=== PATIENT | female | born 1980 | race Caucasian/White ===

== ENCOUNTER 2020-11-11 09:13 | Emergency (ER) | payer OTHER ==
--- OUTSIDE RECORDS SUMMARY | 2020-11-11 09:17 | XMS REPORT | Continuity of Care Document ---
:1980 Author Organization [facility] t Address [address] [place] [address] Care Team Providers Name Role Phone Osvaldo Jeffries MD Primary Care Physician Neftali SALAMANCA Attending Clinician Problems Condition Condition Condition Status Onset Resolution Last Treating Co mments Source Name Details Category Date Date Treatment Clinician Date Gout Gout Problem Active 2020-0 [place] [facility] Insomnia Insomnia Problem Active 2020-0 [place] [facility] Chronic Chronic Problem Active 2020-0 [place] pain Pain 9-17 da syndrome Syndrome 00:00: [facility] Migraine Migraine Problem Active 2020-0 [place] 9-17 [facility] 00[facility] Asthma Asthma Problem Active 2020-0 [place] 9-17 da 00:[facility] Irritable Irritable Problem Active 2020-0 [place] bowel Bowel 9-17 da syndrome Syndrome 00:00: [facility] Non-alcoho Non-alcoho Problem Active 2020-0 M [place] lic fatty lic Fatty 917 da liver Liver 00:00: [facility] Arthritis Arthritis Problem Active 2020-0 [facility] [place] 9-17 da 00:00[facility] Overactive Overactive Problem Active 2020-0 M [place] bladder Bladder 9-17 da 00:00: [facility] Allergies, Adverse Reactions, Alerts Allergy Allergy Status Severity Reaction(s) Onset Inactive Treating Comm ents Source Name Type Date Date Clinician Metformi Propensi Active GI [place] n ty to Intolerance 10-26 Metho di adverse 00:00: st reaction 00 s to drug Divalpro Propensi Active Rash [place] ex ty to 08-23 [facility] adverse 00:00: st reaction 00 s to drug Meperidi Propensi Active Rash [place] ne ty to 08-23 [facility] adverse 00:00: st reaction 00 s to drug Metronid Propensi Active Rash [place] azole ty to 08-23 [facility] adverse 00:00: st reaction 00 s to drug Aspirin Propensi Active [facility] ty to 06-16 breathing [facility] adverse 00:00: st reaction 00 s to drug Clarithr Propensi Active [place] omycin ty to 06-16 [facility] adverse 00:00: st reaction 00 s to drug Nsaids Propensi Active Rash [place] (Non-Abhay ty to 06-16 [facility] roidal adverse 00:00: st Anti-Inf reaction 00 lammator s to y Drug) drug Penicill Propensi Active Anaphylaxis [place] ins ty to 06-16 [facility] adverse 00:00: st reaction 00 s to drug Sulfa Propensi Active Rash [place] (Sulfona ty to 11-11 Method[facility] mide adverse 00:00: st Antibiot reaction 00 ics) s to drug SULFA Allergy Active Anaphylaxis Patel gor (SULFONA to da MIDE substanc [facility] ANTIBIOT [facility] Biaxin Allergy Active Rash [place] to da substanc [facility] Demerol Allergy Active Rash [place] to da substanc [facility] Depakote Allergy Active Vomiting [place] to da substanc [facility] EASPRIN Allergy Active Anaphylaxis [place] to da substanc [facility] Flagyl Allergy Active Anaphylaxis Patel gor to da substanc [facility] Gabapent Allergy Active Anaphylaxis [place] in to da substanc [facility] Penicill Allergy Active Itching [place] amine to da substanc [facility] Family History Family Member Diagnosis Comments Start Date Stop Date Source Family member Colon cancer Oniel Johnston ethodi Family member Colon polyps Oniel Johnston ethodi Social History Social Habit Start Date Stop Date Quantity Comments Source Tobacco use and 2018-01-05 2018-01-05 Never used Oniel Johnston ethodist exposure 00:00:00 00:00:00 Alcohol intake 2018-01-05 2018-01-05 Current [place] [facility] thodist 00:00:00 00:00:00 non-drinker of alcohol (finding) Sex [birth year] At [birth year] Oniel Johnston ethodist 00:00:00 00:00:00 Smoking Status Start Date Stop Date Source Heavy Tobacco Smoker [place] [facility] Former smoker 2018-01-05 00:00:00 2018-01-05 00:00:00 [facility] Medications Ordered Filled Start Stop Current Ordering Indication Dosage Frequency Signature Comments Components Source Medication Medication Date Date Medication? Clinician (SIG) Name Name Kojoportillo Sury No Karonx Patel braulio Continuing Continuing 9-17 Continuing da Month Box 1 Month Box 1 00:00: Month Box [facility] mg tablet mg tablet 00 1 mg al tablet [facility] guaiFENesin Yes 1200mg Take 1,200 [place] (MUCINEX) 8-23 mg by [facility]i 600 mg 10:53: mouth. st tablet 47 extended release 12hr docusate Yes 100mg Take 100 [place] sodium 8-23 mg by [facility] (COLACE) 10:53: mouth. st 100 MG 47 capsule fluticasone Yes 2{spray 2 sprays [place] (FLONASE) 8-23 } into each Metho di 50 10:53: nostril. st mcg/actuati 47 on nasal spray cranberry Yes by NOT [place] 400 mg 8-23 APPLICABLE [facility] capsule 10:53: route. st 47 Lactobacill Yes Take by [place] ston us 8-23 mouth. [facility] acidophilus 10:53: st (PROBIOTIC) 47 10 billion cell capsule linaclotide Yes 145ug QD Take 1 [place] (LINZESS) 5-30 capsule [facility] 145 mcg 00:00: ([address] capsule 00 total) by mouth daily before breakfast. azithromyci Yes ZPK [place] n 5-29 [facility] (ZITHROMAX) 00:00: st 250 MG 00 tablet acetaminoph 0 Yes TK 1 T PO [place] en-codeine 5-29 BID PRN P Meth mer[place] (TYLENOL 00:00: st WITH 00 CODEINE #3) 300-30 mg per tablet LYRICA 75 Yes [place] mg capsule 3-26 Methodi 00:00: st 00 furosemide 2017-0 Yes TK 1 T PO [place] (LASIX) 20 3-23 D FOR [facility] mg tablet 00:00: EDEMA. IF st 00 EDEMA IMPROVES THEN CAN TK 1 T PO D PRN butalbital- Yes [place] acetaminoph 2-22 Method[facility] en-caff 00:00: st (FIORICET, 00 ESGIC) 50-325-40 mg per tablet ondansetron Yes Kacie n (ZOFRAN) 4 2-21 [facility] MG tablet 00:00: st 00 ADVAIR 0 Yes [place] DISKUS 2-21 [facility] 500-50 00:00: st mcg/dose 00 DISKUS estradiol 2016-05 Yes 2mg Take 2 mg [place] (ESTRACE) 2 1-30 by mouth. Met hodi MG tablet 00:00: st 00 montelukast 2016-05 Yes 10mg Take 10 mg [place] (SINGULAIR) 1-30 by mouth. Met hodi 10 mg 00:00: st tablet 00 omeprazole 2016-05 Yes 20mg Take 20 mg [place] (PriLOSEC) 1-30 by mouth. Meth merlyn 20 MG 00:00: st capsule 00 DULoxetine Yes 30mg Take 30 mg [place] (CYMBALTA) 9-01 by mouth. Meth merlyn 30 MG 00:00: st capsule 00 solifenacin 2015-05 Yes [place] (VESICARE) 1-17 [facility] 10 MG 00:00: st tablet 00 amitriptyli 2015-05 Yes [place] (ELAVIL) 1-17 [facility] 25 MG 00:00: st tablet 00 cyclobenzap 2015-05 Yes TAKE 1 [place] 1-15 TABLET 3 [facility] (FLEXERIL) 00:00: TIMES A st 10 mg 00 DAY tablet ranitidine Yes 300mg Take 300 [place] (ZANTAC) 8-08 mg by [facility] 300 MG 00:00: mouth. st tablet 00 cetirizine Yes 10mg Take 10 mg [place] (ZyrTEC) 10 8-08 by mouth. Met hodi MG tablet 00:00: st 00 albuterol Yes 2{puff} Inhale 2 [place] (PROAIR 8-08 puffs. Methodi HFA,PROVENT 00:00: st [place] 00 HFA,VENTOLI N HFA) 90 mcg/actuati on inhaler acetaminoph acetaminoph No acetaminop [place] en 300 en 300 hen 300 da mg-codeine mg-codeine mg-codeine [facility] 30 mg 30 mg 30 mg al tablet TK 1 tablet TK 1 tablet TK Health T PO BID T PO BID 1 T PO BID O utreac h Program Advair Advair No Advair [place] Diskus 250 Diskus 250 Diskus 250 da mcg-50 mcg-50 mcg-50 [facility] mcg/dose mcg/dose mcg/dose al powder for powder for powder for Health inhalation inhalation inhalation Outreac h Program albuterol albuterol No albuterol [place] sulfate 2.5 sulfate 2.5 sulfate da mg/3 mL mg/3 mL 2.5 mg/3 [facility] (0.083 %) (0.083 %) mL (0.083 al solution solution %) Health for for solution Outreac nebulizatio nebulizatio for h n n nebulizati Program on butalbital- butalbital- No butalbital [place] acetaminoph acetaminoph -acetamino da en-caffeine en-caffeine phen-caffe [facility] 50 mg-300 50 mg-300 ine 50 al mg-40 mg mg-40 mg mg-300 Healt h capsule capsule mg-40 mg Outre ac capsule h Program Bydureon 2 Bydureon 2 No Bydureon 2 [place] mg/0.65 mL mg/0.65 mL mg/0.65 mL da subcutaneou subcutaneou subcutaneo [facility] s pen s pen us pen al injector injector injector [facility] Outreac h Program cetirizine cetirizine No cetirizine [place] 10 mg 10 mg 10 mg da tablet tablet tablet [facility] ciprofloxac ciprofloxac No ciprofloxa [place] in 500 mg in 500 mg jeanmarie 500 mg da tablet TK 1 tablet TK 1 tablet TK [facility] T PO Q 12 H T PO Q 12 H 1 T PO Q al FOR 10 DAYS FOR 10 DAYS 12 H FOR Health 10 DAYS Outreac h Program Clenpiq 10 Clenpiq 10 No Clenpiq 10 [place] mg-3.5 mg-3.5 mg-3.5 da gram-12 gram-12 gram-12 Ep[facility] p gram/160 mL gram/160 mL gram/160 al oral oral mL oral Health solution TK solution TK solution Outreac 160 ML PO 160 ML PO TK 160 ML h UTD UTD PO UTD Program cyclobenzap cyclobenzap No cyclobenza [place] rine 10 mg rine 10 mg [place] 10 da tablet tablet mg tablet [facility] p al [facility]reac [facility] Program duloxetine duloxetine No duloxetine [place] 30 mg 30 mg 30 mg da capsule,del capsule,del capsule,de [facility] ayed ayed layed al release TK release TK release TK Health ONE C PO ONE C PO ONE C PO Out reac BID. BID. BID. h Program epinephrine epinephrine No epinephrin [place] 0.3 mg/0.3 0.3 mg/0.3 e 0.3 da mL mL mg/0.3 mL [facility] injection, injection, injection, al auto-inject auto-inject auto-injec Health or or tor Outreac h Program estradiol 2 estradiol 2 No estradiol [place] mg tablet mg tablet 2 mg da tablet [facility] fluticasone fluticasone No fluticason [place] propionate propionate e da 50 50 propionate [facility] mcg/actuati mcg/actuati 50 a l on nasal on nasal mcg/actuat H ealth spray,suspe spray,suspe ion nasal Outreac nsion SHAKE nsion SHAKE spray,susp h LQ AND U 1 LQ AND U 1 ension P rogram SPR IEN QD SPR IEN QD SHAKE LQ AND U 1 SPR IEN QD furosemide furosemide No furosemide [place] 20 mg 20 mg 20 mg da tablet tablet tablet [facility] Glycate 1.5 Glycate 1.5 No Glycate [place] mg tablet mg tablet 1.5 mg da tablet [facility] montelukast montelukast No montelukas [place] 10 mg 10 mg t 10 mg da tablet tablet tablet [facility] Mucinex 600 Mucinex 600 No Mucinex [place] mg tablet, mg tablet, 600 mg d a extended extended tablet, Epis picture copyist release release extended al release Health Outreac h Program nitrofurant nitrofurant No nitrofuran [place] oin oin toin da macrocrysta macrocrysta macrocryst [facility] l 50 mg l 50 mg al 50 mg al capsule TK capsule TK capsule TK Health 1 C PO BID 1 C PO BID 1 C PO BID Outreac WF OR MILK WF OR MILK WF OR MILK h Program nystatin-tr nystatin-tr No nystatin-t [place] iamcinolone iamcinolone riamcinolo da 100,000 100,000 ne 100,000 Epi scop unit/gram-0 unit/gram-0 unit/gram- al .1 % .1 % 0.1 % Health topical topical topical Outrea c ointment ointment ointment h APPLY TO APPLY TO APPLY TO Pro gram THE THE THE AFFECTED AFFECTED AFFECTED AREA(S) BY AREA(S) BY AREA(S) BY TOPICAL TOPICAL TOPICAL ROUTE 2 ROUTE 2 ROUTE 2 TIMES PER TIMES PER TIMES PER DAY DAY DAY omeprazole omeprazole No omeprazole [place] 20 mg 20 mg 20 mg da capsule,del capsule,del capsule,de [facility] ayed ayed layed al release TK release TK release TK Health 2 CAPSULES 2 CAPSULES 2 CAPSULES Outreac PO BID PO BID PO BID h Program ondansetron ondansetron No ondansetro [place] HCl 4 mg HCl 4 mg n HCl 4 mg d a tablet tablet tablet [facility] pregabalin pregabalin No pregabalin [place] 150 mg 150 mg 150 mg da capsule capsule capsule [facility] ProAir HFA ProAir HFA No ProAir HFA [place] 90 90 90 da mcg/actuati mcg/actuati mcg/actuat [facility] on aerosol on aerosol ion al inhaler inhaler aerosol Health inhaler Outreac h Program ranitidine ranitidine No ranitidine [place] 300 mg 300 mg 300 mg da tablet tablet tablet [facility] solifenacin solifenacin No solifenaci [place] 10 mg 10 mg n 10 mg da tablet tablet tablet [facility] Vital Signs Vital Name Observation Time Observation Value Comments Source BP Diastolic 2020-01-30 00:00:00 106 mm[Hg] [facility] Height 2020-01-30 00:00:00 62 [in_i] [facility] BMI (Body Mass 2020-01-30 00:00:00 45 kg/m2 [facility] Index) [facility] BP Systolic 2020-01-30 00:00:00 141 mm[Hg] [facility] Body Weight 2020-01-30 00:00:00 246 [lb_av] [facility] Procedures Procedure Date / Time Performing Clinician Source Performed MAMMO, screening, 2020-01-30 00:00:00 [place] [facility] bilateral [facility] Hysteroscopy 2008-01-30 00:00:00 [place] [facility] Delivery 2004-06-08 00:00:00 [place] [facility] Delivery 2002-07-17 00:00:00 [place] [facility] Removal of Ovarian [place] [facility] scopal Cyst(s) [facility] Plan of Care Planned Activity Planned Date Details Comments Source Future Scheduled Test 2020-12-13 INFLUENZA VACCINE H aries Mcmillanist 00:00:00 [code = INFLUENZA VACCINE] Diagnostic Test 2020-01-30 pap, IG + reflex HR [place] [facility] Pending 00:00:00 HPV [code = pap, IG Health O utreach + reflex HR HPV] Program Diagnostic Test 2020-01-30 bacterial vaginosis [place] [facility] Pending 00:00:00 + vaginitis panel, Health Ou tre[place] vaginal [code = Program bacterial vaginosis + vaginitis panel, vaginal] Future Scheduled Test 2000-01-17 Screening for [place] [facility] 00:00:00 malignant neoplasm of cervix (procedure) [code = 691882156] Future Scheduled Test 1997 Hepatitis C [place] [facility] 00:00:00 screening (procedure) [code = 549065075] Future Scheduled Test 1991 COVID-19 VACCINE [facility] [facility] 00:00:00 (1) [code = COVID-19 VACCINE (1)] Encounters Start End Encounter Admission Attending Care Care Encounter Source Date/Time Date/Time Type Type Clinicians Facility Department ID 2020-09-15 2020-09-15 Office REBECA Lindsay [id number] 15:41:19 17:03:35 Visit [facility] [id number] CARE [id number] CENTER AT [id number] [address] 2020-01-30 2020-01-30 [facility] - [id number] [facility]00 Becca Menendez MD: [facility] [id number], [place], [place] [address] , Ph. Results This patient has no known results.
[2020-11-11] MEDS ORDERED: NA CHLORIDE 0.9% 1,000 ML ONE (10:12)
[2020-11-11] MEDS ORDERED: ONDANSETRON 4 MG/2 ML VIAL ONE (10:12)
[2020-11-11] MEDS ORDERED: MORPHINE 4 MG/ML SYR ONE (10:12)
[2020-11-11 10:30] LABS: Absolute Lymphocytes (CBC) 2.4 K/uL (0.7-4.9); Basophils % 0.4 % (0-1.3); Hematocrit 46.7 % (36.0-45.0); Lymphocytes % 30.5 % (15.3-44.8); MPV 7.5 fL (7.6-11.3)
[2020-11-11 10:41] LABS: Albumin 3.5 g/dL (3.4-5.0); Bilirubin Direct 0.2 mg/dL (0-0.2); Bilirubin Total 0.6 mg/dL (0.2-1.0); Potassium 4.1 mmol/L (3.5-5.1); Protein, Total 8.1 g/dL (6.4-8.2)
--- NOTE | 2020-11-11 11:10 | RAD REPORT ---
EXAM DESCRIPTION: CT - Abdomen Pelvis W Contrast - 11/11/2020 10:49 am CLINICAL HISTORY: Abdominal pain COMPARISON: none. TECHNIQUE: Computed axial tomography of the abdomen pelvis was obtained. 100 cc Isovue-300 was admin istered intravenously. Oral contrast was not requested which limits evaluation of bowel. All CT scans are performed using dose optimization technique as appropriate and may include automated exposure control or mA/KV adjustment according to patient size. FINDINGS: Fatty liver. Cholecystectomy The Spleen, pancreas, adrenal and kidneys appear unremarkable. There is no evidence of diverticulitis. Hysterectomy. No adnexal mass. Small umbilical hernia IMPRESSION: No acute abnormality is displayed.
[2020-11-11] MEDS ORDERED: PROMETHAZINE INJ 25 MG/ML AMP ONE (12:02)
--- NOTE | 2020-11-11 12:43 | EDPHYS ---
Physician Documentation [facility] Name: Eve Bernal Age: 40 yrs Sex: Female : 1980 Arrival Date: 11/11/2020 Time: 09:14 Bed 13 Private MD: ED Physician Maxx Diaz HPI: 11/11 09:41 This 40 yrs old Female presents to ER via Wheelchair with complaints of kb Vomiting/Diarrhea. 09:41 The patient presents to the emergency department with nausea, vomiting, diarrhea, kb abdominal pain. Onset: The symptoms/episode began/occurred 4 day(s) ago. Possible causes: side effect of medication. The symptoms are aggravated by nothing. The symptoms are alleviated by nothing. Associated signs and symptoms: Pertinent positives: abdominal pain, diarrhea, nausea, vomiting. Severity of symptoms: At their worst the symptoms were moderate in the emergency department the symptoms are unchanged. The patient has not experienced similar symptoms in the past. The patient has not recently seen a physician. Pt reports she took an injectable diabetes medication on Monday for the first time since the freeze and has had n/v/d since then. States she took the medication in the past without side effects. Unable to tolerate anything PO now. Historical: - Allergies: 09:25 Sulfa (Sulfonamide Antibiotics); ph 09:25 NSAIDS; ph 09:25 PENICILLINS; ph 09:25 Aspirin; ph 09:25 Flagyl; ph 09:25 Demerol; ph 09:25 Depakote ER; ph - Immunization history:: Adult Immunizations up to date, Client reports having NOT received the Covid vaccine. - Social history:: Smoking status: Patient reports the use of cigarette tobacco products, smokes one pack cigarettes per day. ROS: 09:40 Respiratory: Negative for shortness of breath, cough, wheezing, and pleuritic chest kb pain. 09:40 Constitutional: Positive for chills, malaise, Negative for fever. 09:40 Abdomen/GI: Positive for abdominal pain, nausea, vomiting, and diarrhea, Negative for constipation, abdominal distension. 09:40 All other systems are negative. Exam: 09:41 Constitutional: This is a well developed, well nourished patient who is awake, alert, kb and in no acute distress. Head/Face: Normocephalic, atraumatic. ENT: Moist Mucous membranes Respiratory: Respirations even and unlabored. No increased work of breathing, no retractions or nasal flaring. Skin: Warm, dry with normal turgor. Normal color. MS/ Extremity: Pulses equal, no cyanosis. Neurovascular intact. Full, normal range of motion. Neuro: Awake and alert, GCS 15, oriented to person, place, time, and situation. Moves all extremities. Normal gait. Psych: Awake, alert, with orientation to person, place and time. Behavior, mood, and affect are within normal limits. 09:41 Abdomen/GI: Inspection: abdomen appears normal, Bowel sounds: normal, in all quadrants, Palpation: soft, in all quadrants, mild abdominal tenderness, in the right lower quadrant and left lower quadrant, moderate abdominal tenderness, in the right upper quadrant and left upper quadrant. Vital Signs: 09:25 BP 138 / 104; Pulse 108; Resp 18; Temp 97.2; Pulse Ox 99% on R/A; Weight 113.4 kg; ph Height 5 ft. 2 in. (157.48 cm); Pain 10/10; 10:56 BP 148 / 82; Pulse 104; Resp 19; Pulse Ox 100% ; bp 11:58 BP 148 / 84; Pulse 97; Resp 16; Pulse Ox 96% ; bp 12:51 BP 145 / 85; Pulse 97; Resp 19; Temp 97.5; Pulse Ox 99% ; bp 09:25 Body Mass Index 45.73 (113.40 kg, 157.48 cm) ph MDM: 09:27 Patient medically screened. kb 09:40 Data reviewed: vital signs, nurses notes. Data interpreted: Pulse oximetry: on room air kb is 99 %. Interpretation: normal. 11:31 Counseling: I had a detailed discussion with the patient and/or guardian regarding: the kb historical points, exam findings, and any diagnostic results supporting the discharge/admit diagnosis, lab results, radiology results, the need for outpatient follow up, a family practitioner, to return to the emergency department if symptoms worsen or persist or if there are any questions or concerns that arise at home. 11/11 09:39 Order name: Basic Metabolic Panel; Complete Time: 10:44 kb 11/11 09:39 Order name: CBC with Diff; Complete Time: 10:37 kb 11/11 09:39 Order name: Hepatic Function; Complete Time: 10:44 kb 11/11 09:39 Order name: Lipase; Complete Time: 10:44 kb 11/11 10:11 Order name: CT Abd/Pelvis - IV Contrast Only; Complete Time: 11:28 kb 11/11 10:42 Order name: CREATININE WHOLE BLOOD; Complete Time: 10:44 EDMS 11/11 09:39 Order name: IV Saline Lock; Complete Time: 10:08 kb 11/11 09:39 Order name: Labs collected and sent; Complete Time: 10:08 kb 11/11 11:45 Order name: PO challenge; Complete Time: 11:59 kb Administered Medications: 10:05 Drug: NS 0.9% 1000 ml Route: IV; Rate: 1000 ml; Site: right antecubital; bp 10:05 Drug: Zofran (Ondansetron) 4 mg Route: IVP; Site: right antecubital; bp 11:37 Follow up: Response: No adverse reaction bp 10:05 Drug: morphine 4 mg Route: IVP; Site: right antecubital; bp 11:38 Follow up: Response: Pain is decreased bp 11:40 Drug: Phenergan (promethazine) 12.5 mg Route: IVP; Site: left antecubital; bp Disposition: 11/12 08:38 Co-signature as Attending Physician, Maxx Diaz MD I agree with the assessment and kdr plan of care. Disposition Summary: 11/11/20 12:42 Discharge Ordered Location: Home kb Condition: Stable kb Diagnosis - Nausea with vomiting, unspecified kb - Diarrhea, unspecified kb Followup: kb - With: Emergency Department - When: As needed - Reason: Worsening of condition Followup: kb - With: Private Physician - When: 2 - 3 days - Reason: Recheck today's complaints, Continuance of care, Re-evaluation by your physician Discharge Instructions: - Discharge Summary Sheet kb - Food Choices to Help Relieve Diarrhea, Adult kb - Viral Gastroenteritis, Adult, [id number] kb Forms: - Medication Reconciliation Form kb - Thank You Letter kb - Antibiotic Education kb - Prescription Opioid Use kb Prescriptions: - dicyclomine 20 mg Oral tablet - take 1 tablet by ORAL route 3 times per day As needed; 20 tablet; Refills: 0, kb Product Selection Permitted - ondansetron 4 mg Oral tablet,disintegrating - place 1 tablet by TRANSLINGUAL route every 6 hours As needed; 20 tablet; kb Refills: 0, Product Selection Permitted - promethazine 25 mg Rectal suppository - insert 1 suppository by RECTAL route every 8 hours As needed; 10 suppository; kb Refills: 0, Product Selection Permitted Signatures: Dispatcher [employer] Sandrita Rojas, MICHAELC Maxx Arellano MD MD kdr Hall, Patricia, RN RN Bryce Sheldon RN RN bp
--- NOTE | 2020-11-11 12:43 | ER ---
Nurse's Notes [facility] Name: Eve Bernal Age: 40 yrs Sex: Female : 1980 Arrival Date: 11/11/2020 Time: 09:14 Bed 13 Private MD: Diagnosis: Nausea with vomiting, unspecified;Diarrhea, unspecified Presentation: 11/11 09:24 Chief complaint: Patient states: vomiting since Monday. Diarrhea yesterday. Pt believes ph she is having a reaction to a diabetic injection she is taking for weight loss as her doctor told her this is a common side effect. Coronavirus screen: Client denies travel out of the [place] in the last 14 days. Ebola Screen: Patient denies exposure to infectious person. Patient denies travel to an Ebola-affected area in the 21 days before illness onset. Initial Sepsis Screen: Does the patient meet any 2 criteria? No. Patient's initial sepsis screen is negative. Does the patient have a suspected source of infection? No. Patient's initial sepsis screen is negative. Risk Assessment: Do you want to hurt yourself or someone else? Patient reports no desire to harm self or others. Onset of symptoms was November 08, 2020. 09:24 Method Of Arrival: Wheelchair ph 09:24 Acuity: CHA 3 ph Triage Assessment: General: Appears in no apparent distress. uncomfortable, obese, Behavior is bp cooperative, appropriate for age, anxious. Pain: Complains of pain in abdomen. EENT: No deficits noted. Neuro: No deficits noted. Cardiovascular: No deficits noted. Respiratory: No deficits noted. GI: Reports diarrhea, nausea, vomiting. : No signs and/or symptoms were reported regarding the genitourinary system. Derm: No deficits noted. Musculoskeletal: No deficits noted. Historical: - Allergies: 09:25 Sulfa (Sulfonamide Antibiotics); ph 09:25 NSAIDS; ph 09:25 PENICILLINS; ph 09:25 Aspirin; ph 09:25 Flagyl; ph 09:25 Demerol; ph 09:25 Depakote ER; ph - Immunization history:: Adult Immunizations up to date, Client reports having NOT received the Covid vaccine. - Social history:: Smoking status: Patient reports the use of cigarette tobacco products, smokes one pack cigarettes per day. Screenin:30 Abuse screen: Denies threats or abuse. Denies injuries from another. Nutritional bp screening: No deficits noted. Tuberculosis screening: No symptoms or risk factors identified. Fall Risk None identified. Assessment: 09:30 General: SEE TRIAGE NOTE. GI: Abdomen is. : No signs and/or symptoms were reported bp regarding the genitourinary system. EENT: No deficits noted. Derm: No deficits noted. Musculoskeletal: No deficits noted. 10:56 Reassessment: PT RETURNED FROM CT. bp 11:58 Reassessment: No changes from previously documented assessment. Patient and/or family bp updated on plan of care and expected duration. Pain level reassessed. Patient is alert, oriented x 3, equal unlabored respirations, skin warm/dry/pink. PO CHALLENGE SUCCESSFUL. DISPO PENDING. 12:51 Reassessment: PT D/C HOME VIA W/C WITH FAMILY, DX WITH VIRAL GASTROENTERITIS. bp Vital Signs: 09:25 BP 138 / 104; Pulse 108; Resp 18; Temp 97.2; Pulse Ox 99% on R/A; Weight 113.4 kg; ph Height 5 ft. 2 in. (157.48 cm); Pain 10/10; 10:56 BP 148 / 82; Pulse 104; Resp 19; Pulse Ox 100% ; bp 11:58 BP 148 / 84; Pulse 97; Resp 16; Pulse Ox 96% ; bp 12:51 BP 145 / 85; Pulse 97; Resp 19; Temp 97.5; Pulse Ox 99% ; bp 09:25 Body Mass Index 45.73 (113.40 kg, 157.48 cm) ph ED Course: 09:14 Patient arrived in ED. am2 09:15 Sandrita Herrera FNP-C is PHCP. kb 09:15 Maxx Diaz MD is Attending Physician. kb 09:25 Triage completed. ph 09:25 Arm band placed on right wrist. ph 09:27 Bryce Altamirano, CHELY is Primary Nurse. bp 09:30 Patient has correct armband on for positive identification. Bed in low position. Call bp light in reach. Side rails up X2. 10:05 Inserted saline lock: 20 gauge in right antecubital area, using aseptic technique. bp Blood collected. 10:48 CT Abd/Pelvis - IV Contrast Only In Process Unspecified. EDMS 12:51 No provider procedures requiring assistance completed. IV discontinued, intact, bp bleeding controlled, No redness/swelling at site. Pressure dressing applied. Administered Medications: 10:05 Drug: NS 0.9% 1000 ml Route: IV; Rate: 1000 ml; Site: right antecubital; bp 10:05 Drug: Zofran (Ondansetron) 4 mg Route: IVP; Site: right antecubital; bp 11:37 Follow up: Response: No adverse reaction bp 10:05 Drug: morphine 4 mg Route: IVP; Site: right antecubital; bp 11:38 Follow up: Response: Pain is decreased bp 11:40 Drug: Phenergan (promethazine) 12.5 mg Route: IVP; Site: left antecubital; bp Outcome: 12:42 Discharge ordered by . kb 12:56 Discharged to home via wheelchair, with family. bp 12:56 Condition: stable 12:56 Discharge instructions given to patient, family, Instructed on discharge instructions, follow up and referral plans. medication usage, Demonstrated understanding of instructions, follow-up care, medications, Prescriptions given X 3. 12:57 Patient left the ED. bp Signatures: Dispatcher [employer] EDMS Sandrita Herrera, CHEIKH-C ENDING MACHINE OPERATOR-[place], RN RN Eve Dodd Brian, RN RN bp
[2020-11-11 13:14] VITALS: BP 145/85; TEMP 97.5; O2SAT 99
== END 2020-11-11 12:57 | disposition home or self-care (01) ==
LOC: ER 09:13
DX: R19.7 Diarrhea, unspecified (principal); F17.210 Nicotine dependence, cigarettes, uncomplicated; Z88.0 Allergy status to penicillin; Z88.2 Allergy status to sulfonamides; Z88.5 Allergy status to narcotic agent; Z88.6 Allergy status to analgesic agent
CPT/HCPCS: 85025; 80048; 36415; 82565; 80076; 83690; 74177; Q9967; J2550; J7030; J2405

== ENCOUNTER 2022-07-01 18:36 | Emergency (ER) | payer OTHER ==
--- OUTSIDE RECORDS SUMMARY | 2022-07-01 18:47 | XMS REPORT | Continuity of Care Document ---
:1980 Author Organization [facility] t Address [address] [place] [address] Care Team Providers Name Role Phone Liseth Aj NP Primary Care Physician LLUVIA EUGENE Attending Clinician Unavailable ABRAHAM KELLER Attending Clinician Unavailable DIOMEDES LUGO Attending Clinician Unavailable Liseth Aj NP Attending Clinician Dheeraj Salamanca MD Attending Clinician Abraham Keller MD Attending Clinician LISETH AJ Attending Clinician Unavailable Diomedes Rolle Attending Clinician NORBERT DIEGO Attending Clinician Unavailable Mirian Vaughn MD Attending Clinician Norbert Diego MD Attending Clinician SHILPA SIERRA Attending Clinician Unavailable JEFFY SORENSON Attending Clinician Unavailable 2, [facility] Attending Clinician Unavailable ANNABELLA SILVER Attending Clinician Unavailable Doctor Unassigned, [facility] Attending Clinician Unavailable Only, Adc Test Attending Clinician Unavailable Radiology Attending Clinician Unavailable RADIOLOGY Attending Clinician Unavailable Shanti Gilbert Attending Clinician Unavailable Only, Lcc Test Attending Clinician Unavailable PATRIZIA GIVENS Attending Clinician Unavailable Corazon Cai Attending Clinician CORAZON CASE Attending Clinician Unavailable [email or web address] Attending Clinician Unavailable Shanti Mosley MD Attending Clinician [phone] SHANTI MOSLEY Attending Clinician Unavailable Mecca Hoffman Attending Clinician MECCA ROBLES Attending Clinician Unavailable Mario Nicholson DO Attending Clinician Lluvia Eugene MD Attending Clinician Pob, [facility] Main Attending Clinician Unavailable William Benitez Attending Clinician [facility] Anesthesia Pain Procedure Attending Clinician Unavailable Ayeni_Ibitoye_Olubu Attending Clinician Unavailable AGNES SONI Attending Clinician Unavailable Agnes Soni MD Attending Clinician KELLY GAONA Attending Clinician Unavailable Per STOVALL, Madiha Cartagena Attending Clinician LLUVIA EUGENE Admitting Clinician Unavailable Shanti Gilbert Admitting Clinician Unavailable JASVIR BURT Admitting Clinician Unavailable [email or web address] Admitting Clinician Unavailable Lluvia Eugene MD Admitting Clinician Ayeni_Ibitoye_Olubu Admitting Clinician Unavailable Payers Payer Name Policy Type Policy Number Effective Date Expiration Date S emily [facility] [id number] 2018 00:00:00 [facility] [id number] 2017 00:00:00 [facility] [id number] 2017 [employer] 00:00:00 () WPS - FOR [id number] LIFE (SECONDARY TO MEDICARE) Problems Condition Condition Condition Status Onset Resolution Last Treating Co mments Source Name Details Category Date Date Treatment Clinician Date Tobacco Tobacco Disease Active Univers user user 2-08 ity of 00:00: [place] [id number] Medical Branch Overactive Overactive Disease Active U nivers bladder bladder 2-08 ity of 00:00: [place] 00 Medical Branch Non-refrac Non-refrac Disease Active U nivers tory tory 2-08 ity of chronic chronic 00:00: [place] migraine migraine 00 Medica l without without Branch aura aura Neuropathy Neuropathy Disease Active U nivers 2-08 ity of 00:00: Medical Branch Morbid Morbid Disease Active Univers obesity obesity 2-08 ity of 00:00: [place] [facility] Migraine Migraine Disease Active Unive rs 2-08 ity of 00:00: [place] 00 Medical Branch Menopausal Menopausal Disease Active U nivers flushing flushing 2-08 ity of 00:00: 00 Medical Branch Malignant Malignant Disease Active Overview: Univers neoplasm neoplasm 2-08 Formattin ity of of skin of skin 00:00: g of this [place] 00 note Medical might be Branch different from the original. Formattin g of this note might be different from the original. s/p excision in 2012 Hyperprola Hyperprola Disease Active U nivers ctinemia ctinemia 2-08 ity of 00:00: [place] 00 Medical Branch History of History of Disease Active U nivers multiple multiple 2-08 ity of allergies allergies 00:00[place] Arthritis Arthritis Disease Active Uni vers 2-08 ity of 00:00: [place] 00 Medical Branch Abnormal Abnormal Disease Active Unive rs mammogram mammogram 2-08 ity of 00:00: [place] 00 Medical Branch BRBPR BRBPR Disease Active Univers (bright (bright 1-14 ity of red blood red blood 00:00[place] 00 Medical rectum) rectum) Branch Internal Internal Disease Active Overview: Un nemo derangemen derangemen 2-11 Formattin ity of t of left t of left 00:00: [place] of this [place] knee knee 00 note Medical might be Branch different from the original. Added automatic ally from request for surgery [id number] Internal Internal Disease Active Overview: Un nemo derangemen derangemen 2-11 Formattin ity of t of left t of left 00:00: g of this [place] knee knee 00 note Medical might be Branch different from the original. Added automatic ally from request for surgery [id number] Arthritis Arthritis Problem Active 2020-0 [facility] [place] [facility] Overactive Overactive Problem Active 2020-0 [facility] [place] bladder Bladder 9-17 da 00:00: [facility] Gout Gout Problem Active 2020-0 [place] 917 da 00:00: [facility] Insomnia Insomnia Problem Active 2020-0 [place] 917 da 00:00: [facility] Chronic Chronic Problem Active 2020-0 [place] pain Pain 917 da syndrome Syndrome 00:00: [facility] Migraine Migraine Problem Active 2020-0 [place] 917 da 00:[facility]: [facility] Asthma Asthma Problem Active 2020-0 [place] 917 da 00:00: [facility] Irritable Irritable Problem Active 2020-0 [place] bowel Bowel 917 da syndrome Syndrome 00:00: [facility] Non-alcoho Non-alcoho Problem Active 2020-0 [place] lic fatty lic Fatty 01-29 da liver Liver 00:00: [facility] Chronic Chronic Disease Active Univers constipati constipati 7-11 it y of on on 00:00: [place] 00 Medical Branch Lumbosacra Lumbosacra Disease Active 2019 Overview : Univers l l 4-19 Formattin ity of spondylosi spondylosi 00:00: g of this [place] s with s with 00 note Medical radiculopa radiculopa might be Branch thy thy different from the original. Added automatic ally from request for surgery [id number] Pericardia Pericardia Disease Active U nivers l effusion l effusion 4-05 it y of 00:00: [place] 00 Medical Branch Easy Easy Disease Active 2019-0 Univers bruising bruising 4-05 ity of 00:00: [place] 00 Medical Branch Elevated Elevated Disease Active Unive rs alkaline alkaline 2-01 ity of phosphatas phosphatas 00:00: [place] e level e level 00 Medical Branch Lower Lower Disease Active 2017-05 Univers extremity extremity 0-26 ity of edema edema 00:00: [place] 00 Medical Branch Body mass Body mass Disease Active Uni vers index index 9-06 ity of (BMI) of (BMI) of 00:00: [place] 40.0-44.9 40.0-44.9 00 Medi mike in adult in adult Branch Biliary Biliary Disease Active Overview: Univ ers dyskinesia dyskinesia 01-10 Formattin ity of 00:00: g of this [place] 00 note Medical might be Branch different from the original. Added automatic ally from request for surgery [id number] Non-alcoho Non-alcoho Disease Active Overview : Univers lic fatty lic fatty 01-10 Formattin i ty of liver liver 00:00: g of this [place] disease disease 00 note Medical might be Branch different from the original. Added automatic ally from request for surgery [id number] Chronic Chronic Disease Active Univers pain pain 3-16 ity of syndrome syndrome 00:00: [place] [facility] Fibromyalg Fibromyalg Disease Active U shemarers ia ia 3-16 ity of 00:00: [place] 00 Medical Branch Snoring Snoring Disease Active Univers 3-16 ity of 00:00: [place] [facility] Chronic Chronic Disease Active Univers fatigue fatigue 3-16 ity of 00:00: [place] [facility] Gastro-eso Gastro-eso Disease Active U shemarers phageal phageal 3-16 ity of reflux reflux 00:00: [place] disease disease 00 Medical without without Branch esophagiti esophagiti s s PATEL PATEL Disease Active Univers (nonalcoho (nonalcoho 3-16 it y of lic lic 00:00: [place] steatohepa steatohepa 00 Me dical titis) titis) Branch Anxiety Anxiety Disease Active Univers and and 3-16 ity of depression depression 00:[place]: [place] [facility] [place] Anxiety Anxiety Disease Active Univers disorder disorder 3-16 ity of 00:00: [place] 00 Medical Branch SOB SOB Disease Active Univers (shortness (shortness 2-12 it y of of breath) of breath) 00:00: [place] [facility] [place] Weight Weight Disease Active 2016-05 Univers gain gain 2-08 ity of 00:00: [place] 00 Medical Branch Right Right Disease Active 2016-05 Univers upper upper 2-08 ity of quadrant quadrant 00:00: [place] abdominal abdominal 00 Medi mike pain pain Branch Swelling Swelling Disease Active 2016-05 Overview: Un nemo 1-07 Formattin ity of 00:00: g of this note Medical might be Branch different from the original. Last Assessmen t & Plan: Formattin g of this note might be different from the original. - 1+ LE edema noted- she has had a 15 lbs weight gain since her visit in 01/2017- reports using her inhaler more and notice shortness of breathPLA N- schedule Echocardi ogram Steatohepa Steatohepa Disease Active U kaley english, 8-08 ity of non-alcoho non-alcoho 00:00: [place] lic lic Medical [facility] Snoring Snoring Disease Active Univers 7-12 ity of 00:00: [place] [facility] Enlarged Enlarged Disease Active Overview: Un nemo liver liver 5- Formattin ity of 00:00: g of this note is Medical different Branch from the original. Last Assessmen t & Plan: Formattin g of this note is different from the original. - labs stable- abd u/s 02/2017 no liver mass or ascites- recommend Weight loss of 10% body weight: 25 lbs, 200 minutes exercise weekly, and decrease carbohydr ate intake - no weight lost since last visitPLAN - recommend lifestyle changes including increasin g protein, decreasin g carbohydr ates, decreasin g fatty, fried foods and increase exercise- 10% body weight loss: 20 lbs or more over the next 6 months. ?- 200 minutes exercise weekly?- walk 10,000 steps/day Disturbanc Disturbanc Disease Active U nivers e of skin e of skin 2-02 ity of sensation sensation 00:00: [place] Carpal Carpal Disease Active 2015-05 Univers tunnel tunnel 1-14 ity of syndrome syndrome 00:00: [place] of right of right 00 Medica l wrist wrist Branch Encounter Encounter Disease Active Uni vers for for 8-10 ity of dietary dietary 00:00: [place] counseling counseling 00 Me dical and and Branch surveillan surveillan ce ce Injury of Injury of Disease Active 2013-05 Uni vers finger of finger of 0-13 ity of left hand left hand 00:00: [place] Artificial Artificial Disease Active 2013-05 U [place] menopause menopause 0-06 ity of 00:00: [place] [facility] Fibromyalg Fibromyalg Disease Active U joana ia ia 6-30 ity of 00:00: [place] 00 Medical Branch Asthma Asthma Disease Active Univers 6-30 ity of 00:00: [place] [facility] High High Disease Active Univers cholestero cholestero 6-30 it y of l l 00:00: [place] [facility] Essential Essential Disease Active Overview: Univers hypertensi hypertensi 6-30 Formattin ity of on on 00:00: g of this 00 note Medical might be Branch different from the original. Formattin g of this note might be different from the original. BENIGN Gout Gout Disease Active Univers 6-30 ity of 00:00: [place] 00 Medical Branch Environmen Environmen Disease Active U joana missy missy 6-30 ity of allergies allergies 00:00: [place] [facility] [place] Bipolar Bipolar Disease Active Univers disorder disorder 6-30 ity of 00:00: [place] 00 Medical Branch Allergies, Adverse Reactions, Alerts Allergy Allergy Status Severity Reaction(s) Onset Inactive Treating Comm ents Source Name Type Date Date Clinician Sulfa DA Active SV UNKNOWN [facility] (Sulfona 06-16 [place] mide 00:00: [facility] Antibiot 00 dic ics) [facility]ospita l aspirin DA Active SV UNKNOWN [facility] 06-16 00:00: [facility] dic [facility] divalpro DA Active SV UNKNOWN [facility] ex 06-16 [place] sodium 00:00: [facility] 00 dic [facility]ospita l metronid DA Active SV UNKNOWN [facility] azole 06-16 00:00: [facility] 00 dic [facility]ospita l clarithr DA Active SV UNKNOWN [facility] omycin 06-16 00:00: [facility] 00 dic [facility]ospita l gabapent DA Active SV UNKNOWN [facility] in 06-16 [place] 00:00: [facility] 00 dic [facility]ospita l metformi DA Active SV UNKNOWN [facility] n 06-16 [place] 00:00: [facility] 00 dic [facility]ospita l meperidi DA Active SV UNKNOWN [facility] ne 06-16 00:00: [facility] 00 dic Hospita l NSAIDS DA Active SV UNKNOWN [facility] (Non-Abhay 06-16 [place] roidal 00:00: [facility] Anti-Inf 00 dic lamma Hospita l Penicill DA Active SV UNKNOWN [facility] ins 06-16 00:00: [facility] 00 dic Hospita l Gabapent Propensi Active Rash Univer s in ty to 07-10 ity of adverse 00:00: [place] reaction 00 Medical s Branch GABAPENT DRUG Active Rash Univers IN INGREDI 07-10 ity of 00:00: [place] 00 Medical Branch Penicill Propensi Active Anaphylaxis U nivers in ty to 07-28 ity of adverse 00:00: [place] reaction Medical s Branch PENICILL DRUG Active Anaphylaxis Uni vers IN INGREDI 07-28 ity of 00:00: [place] 00 Medical Branch Metformi Propensi Active GI Method i n ty to Intolerance 10-26 adverse 00:00: Hospita reaction 00 l s to drug Metformi Propensi Active Nausea Univer s n ty to and/or 10-26 ity of adverse Vomiting 00:00: [place] reaction 00 Medical s Branch METFORMI DRUG Active N/V Univers N INGREDI 10-26 ity of 00:00: [place] 00 Medical Branch Meperidi Propensi Active Rash Rash, Univer s ne Hcl ty to 09-12 From ity of adverse 00:00: DEMEROL [place] reaction Medical s Branch Metronid Propensi Active Rash Nausea, Unive rs azole ty to 5 From ity of Hcl adverse 00:00: FLAGYL [place] reaction Medical s Branch MEPERIDI DRUG Active Rash Univers NE HCL INGREDI 09-12 ity of 00:00: [place] 00 Medical Branch METRONID DRUG Active Rash Univers AZOLE INGREDI 09-12 ity of HCL 00:00: [place] 00 Medical Branch Divalpro Propensi Active Rash Method i ex ty to 11 st adverse 00:00: Hospita reaction 00 l s to drug Meperidi Propensi Active Rash Method i ne ty to 4-11 st adverse 00:00: Hospita reaction 00 l s to drug Metronid Propensi Active Rash Method i azole ty to 08-23 st adverse 00:00: Hospita reaction 00 l s to drug Clarithr Propensi Active Rash Univer s omycin ty to 411 ity of adverse 00:00: [place] reaction 00 Medical s Branch Divalpro Drug Active Rash Univers ex Allergy 08-23 ity of Sodium 00:00: Medical Branch CLARITHR DRUG Active Low Rash Univers OMYCIN INGREDI 08-23 ity of 00:00: [place] [facility] DIVALPRO DRUG Active Low Rash Univers EX INGREDI 08-23 ity of SODIUM 00:00: [place] 00 Medical Branch Aspirin Propensi Active Slows Methodi ty to 06-[address] adverse 00:00: Hospita reaction 00 l s to drug Clarithr Propensi Active Method i omycin ty to 06-16 st adverse 00:00: Hospita reaction 00 l s to drug Nsaids Propensi Active Rash Methodi (Non-Abhay ty to 06-16 st roidal adverse 00:00: Hospita Anti-Inf reaction 00 l lammator s to y Drug) drug Penicill Propensi Active Anaphylaxis M ethodi ins ty to 06-16 st adverse 00:00: Hospita reaction 00 l s to drug Nsaids Propensi Active Rash Rash Univers (Non-Abhay ty to 3-19 ity of roidal adverse 00:00: [place] Anti-Inf reaction 00 Medica l lammator s Branch y Drug) NSAIDS Drug Active Low Anaphylaxis Unive rs (NON-ABHAY Class 3-19 ity of ROIDAL 00:00: [place] ANTI-INF 00 Medical LAMMATOR Branch Y DRUG) Nsaids Propensi Active Rash Rash Univers (Non-Abhay ty to 3-19 ity of roidal adverse 00:00: [place] Anti-Inf reaction 00 Medica l lammator s Branch y Drug) Sulfa Propensi Active Rash Methodi (Sulfona ty to 11-11 st mide adverse 00:00: Hospita Antibiot reaction 00 l ics) s to drug Aspirin Propensi Active Anaphylaxis RashSlows Univers ty to 6-30 breathing ity of adverse 00:00: Slows [place] reaction 00 breathing Medic al s Branch Meperidi Drug Active Rash Univers ne Allergy 6-30 ity of 00:00: [place] 00 Medical Branch Penicill Propensi Active Anaphylaxis Rash U nivers ins ty to 6-30 ity of adverse 00:00: [place] reaction 00 Medical s Branch Sulfa Propensi Active Rash Hives Univers (Sulfona ty to 6-30 ity of mide adverse 00:00: [place] Antibiot reaction 00 Medica l ics) s Branch PENICILL Drug Active High Anaphylaxis Uni vers INS Class 6-30 ity of 00:00: [place] 00 Medical Branch ASPIRIN DRUG Active Anaphylaxis Univ ers INGREDI 6-30 ity of 00:00: [place] 00 Medical Branch MEPERIDI DRUG Active Low Rash Univers NE INGREDI 6-30 ity of 00:00: [place] 00 Medical Branch SULFA Drug Active Low Rash Univers (SULFONA Class 6-30 ity of MIDE 00:00: [place] ANTIBIOT 00 Medical ICS) Branch Penicill Propensi Active Anaphylaxis Rash U nivers ins ty to 6-30 ity of adverse 00:00: [place] reaction 00 Medical s Branch Biaxin Allergy Active Rash [place] to da [...] [facility] SULFA Allergy Active Anaphylaxis Patel gor (SULFONA to da MIDE substanc [facility] Social History Social Habit Start Date Stop Date Quantity Comments Source History of Smokes tobacco University of tobacco use daily [facility] Exposure to 2022-06-12 2022-06-22 Not sure [place] of SARS-CoV-2 00:00:00 12:39:00 [facility] (event) Branch Tobacco use and 2021-12-17 2021-12-17 Smokeless tobacco Un iversity of exposure 00:00:00 00:00:00 non-user [facility] Alcohol intake 2018-01-05 2018-01-05 Current [facility] 00:00:00 00:00:00 non-drinker of alcohol (finding) Sex Ass[birth year] At [birth year] [facility] 00:00:00 00:00:00 Smoking Status Start Date Stop Date Source Heavy Tobacco Smoker Darryl cohen [facility] Smokes tobacco daily 2021-12-17 00:00:00 Univers ity of [facility] Ex-smoker 2017-10-11 00:00:00 2017-10-11 00:00:00 [facility] Medications Ordered Filled Start Stop Current Ordering Indication Dosage Frequency Signature Comments Components Source Medication Medication Date Date Medication? Clinician (SIG) Name Name methylPREDN Yes [id number] Take by Univers ISolone 2-17 mouth ity of (MEDROL, 00:00: SEE-INSTRU Gilbert as FRANK,) 4 mg 00 CTIONS. Medica l tablets follow Branch package directions albuterol Yes [id number] 2.5mg Inhale 3 Univers 2.5 mg /3 2-17 mL every 4 ity of mL (0.083 00:00: (four) [place] %) 00 hours as Medical nebulizer needed for Bran ch solution Wheezing or Shortness of Breath. Nebulizer Yes [id number] Use as Un nemo Accessories 2-17 directed ity of Kit 00:00: [place] 00 [facility] codeine-gua 2022- Yes [id number] 5mL Take 5 mL Univers ifenesin 2-17 02-25 by mouth ity of 10-100 mg/5 00:00: 05:59 every 6 [place] mL oral 00 :00 (six) Medical solution hours as Branch needed for Cough for up to 7 days. Indication s: acute pain, cough docusate 0 Yes 100mg Take 100 Univ ers 100 mg 2-14 mg by ity of capsule 15:45: mouth. [address] fluticasone 0 Yes 2{spray Use 2 Un nemo 50 2-14 } Sprays in ity of mcg/actuati 15:45: each [place] on nasal 31 nostril. Medical spray Branch guaiFENesin 0 Yes 1200mg Take 1,200 Univers 600 mg 2-14 mg by ity of tablet 15:45: mouth [place] 31 every 12 Medical (twelve) Branch hours. vitamin E 2022-0 Yes 200U Take 200 Univ ers 200 unit 2-14 Units by ity of capsule 15:45: mouth [place] 31 daily. Medical Branch omega-3 0 Yes Take by Univers fatty acids 2-14 mouth. ity of (FISH OIL 15:45: [place] CONCENTRATE 31 Medical ORAL) Branch EPINEPHrine 0 Yes INJECT FOR Univers 0.3 mg/0.3 2-14 ONE DOSE ity o f mL 15:45: NEEDED [place] injection 31 FOR Medical ANAPHYLAXI Branch S docusate 0 Yes 100mg Take 100 Univ ers 100 mg 2-14 mg by ity of capsule 15:45: mouth. Medical Branch fluticasone 0 Yes 2{spray Use 2 Un nemo 50 2-14 } Sprays in ity of mcg/actuati 15:45: each [place] on nasal 31 nostril. Medical spray Branch guaiFENesin 0 Yes 1200mg Take 1,200 Univers 600 mg 2-14 mg by ity of tablet 15:45: mouth [place] 31 every 12 Medical (twelve) Branch hours. vitamin E 0 Yes 200U Take 200 Univ ers 200 unit 2-14 Units by ity of capsule 15:45: mouth [place] 31 daily. Medical Branch omega-3 0 Yes Take by Univers fatty acids 2-14 mouth. ity of (FISH OIL 15:45: [place] CONCENTRATE 31 Medical ORAL) Branch EPINEPHrine 0 Yes INJECT FOR Univers 0.3 mg/0.3 2-14 ONE DOSE ity o f mL 15:45: NEEDED [place] injection 31 FOR Medical ANAPHYLAXI Branch S docusate 2022-0 Yes 100mg Take 100 Univ ers 100 mg 2-14 mg by ity of capsule 15:45: mouth. Medical Branch fluticasone 2022-0 Yes 2{spray Use 2 Un nemo 50 2-14 } Sprays in ity of mcg/actuati 15:45: each [place] on nasal 31 nostril. Medical spray Branch guaiFENesin 0 Yes 1200mg Take 1,200 Univers 600 mg 2-14 mg by ity of tablet 15:45: mouth [place] 31 every 12 Medical (twelve) Branch hours. vitamin E 0 Yes 200U Take 200 Univ ers 200 unit 2-14 Units by ity of capsule 15:45: mouth [place] 31 daily. Medical Branch omega-3 Yes Take by Univ s fatty acids 2-14 mouth. ity of (FISH OIL 15:45: [place] CONCENTRATE 31 Medical ORAL) Branch EPINEPHrine Yes INJECT FOR Univers 0.3 mg/0.3 2-14 ONE DOSE ity o f mL 15:45: NEEDED [place] injection 31 FOR Medical ANAPHYLAXI Branch S cloNIDine 0 Yes [id number] .2mg Take 1 Un nemo 0.2 mg 2-14 tablet by ity of tablet 00:00: mouth in [place] 00 the Medical morning Branch and 1 tablet at noon and 1 tablet in the evening. Only take if BP is greater than 160/100 benzonatate 2022-0 Yes [id number] 100mg Take 1 Univers (TESSALON 2-14 capsule by ity of PERLES) 100 00:00: mouth [place] mg capsule 00 every 8 Medica l (eight) Branch hours as needed for Cough. cloNIDine 2022-0 Yes [id number] .2mg Take 1 Un nemo 0.2 mg 2-14 tablet by ity of tablet 00:00: mouth in [place] 00 the Medical morning Branch and 1 tablet at noon and 1 tablet in the evening. Only take if BP is greater than 160/100 benzonatate 2022-0 Yes [id number] 100mg Take 1 Univers (TESSALON 2-14 capsule by ity of PERLES) 100 00:00: mouth [place] mg capsule 00 every 8 Medica l (eight) Branch hours as needed for Cough. cloNIDine 2022-0 Yes [id number] .2mg Take 1 Un nemo 0.2 mg 2-14 tablet by ity of tablet 00:00: mouth in [place] 00 the Medical morning Branch and 1 tablet at noon and 1 tablet in the evening. Only take if BP is greater than 160/100 benzonatate 2023-0 Yes [id number] 100mg Take 1 Univers (TESSALON 2-14 capsule by ity of MICHELLE) 100 00:00: mouth [place] mg capsule 00 every 8 Medica l (eight) Branch hours as needed for Cough. clindamycin 2022- Yes [id number] 300mg Take 1 Univers 300 mg -28 06-25 capsule by ity of capsule 00:00: 05:59 mouth in [place] 00 :00 the Medical morning Branch and 1 capsule at noon and 1 capsule in the evening. Do all this for 10 days. clindamycin 2022- Yes [id number] 300mg Take 1 Univers 300 mg 06-28-25 capsule by ity of capsule 00:00: 05:59 mouth in [place] 00 :00 the Medical morning Branch and 1 capsule at noon and 1 capsule in the evening. Do all this for 10 days. clindamycin 2022- Yes [id number] 300mg Take 1 Univers 300 mg 06-28 capsule by ity of capsule 00:00: 05:59 mouth in [place] 00 :00 the Medical morning Branch and 1 capsule at noon and 1 capsule in the evening. Do all this for 10 days. vitamin E Yes 200U Take 200 Univ ers 200 unit 2-08 Units by ity of capsule 13:45: mouth [place] 00 daily. Medical Branch vitamin E Yes 200U Take 200 Univ ers 200 unit 2-08 Units by ity of capsule 13:45: mouth [place] 00 daily. Medical Branch nystatin 2022- No APPLY 1 Unive rs 100,000 06-22- APPLICATIO ity o f unit/gram 13:44: 00:00 N [place] cream 47 :00 EXTERNALLY Medical TWICE A Branch DAY FOR 14 DAYS. nystatin 2022- No APPLY 1 Unive rs 100,000 06-22-08 APPLICATIO ity o f unit/gram 13:44: 00:00 N [place] cream 47 :00 EXTERNALLY Medical TWICE A Branch DAY FOR 14 DAYS. omeprazole 2022- No TAKE 2 Univ ers 20 mg 06-22-08 CAPSULES ity of capsule 13:41: 00:00 TWICE A [place] 45 :00 DAY Medical Branch omeprazole 2022- No TAKE 2 Univ ers 20 mg 06-22-08 CAPSULES ity of capsule 13:41: 00:00 TWICE A [place] 45 :00 DAY Medical Branch fluticasone 2022-0 Yes 2{spray Use 2 Un nemo 50 2-08 } Sprays in ity of mcg/actuati 13:41: each [place] on nasal 25 nostril. Medical spray Branch fluticasone 2022-0 Yes 2{spray Use 2 Un nemo 50 2-08 } Sprays in ity of mcg/actuati 13:41: each [place] on nasal 25 nostril. Medical spray Branch omega-3 2022-0 Yes Take by Univers fatty acids 2-08 mouth. ity of (FISH OIL 13:40: [place] CONCENTRATE 48 Medical ORAL) Branch omega-3 2022-0 Yes Take by Univers fatty acids 2-08 mouth. ity of (FISH OIL 13:40: [place] CONCENTRATE 48 Medical ORAL) Branch docusate 2022-0 Yes 100mg Take 100 Univ ers 100 mg 2-08 mg by ity of capsule 13:40: mouth. [place] 41 Medical Branch docusate 2022-0 Yes 100mg Take 100 Univ ers 100 mg 2-08 mg by ity of capsule 13:40: mouth. [place] 41 Medical Branch Cranberry 2022-0 2022- No by NOT Unive rs 400 mg Cap 06-22-08 APPLICABLE it y of 13:39: 00:00 route. [place] 57 :00 Medical Branch Cranberry 2022-0 2022- No by NOT Unive rs 400 mg Cap 06-22-08 APPLICABLE it y of 13:39: 00:00 route. [place] 57 :00 Medical Branch guaiFENesin 2022-0 Yes 1200mg Take 1,200 [facility] 600 mg 2-08 mg by ity of tablet 13:39: mouth [place] 44 every 12 Medical (twelve) Branch hours. guaiFENesin 2022-0 Yes 1200mg Take 1,200 [facility] 600 mg 2-08 mg by ity of tablet 13:39: mouth [place] 44 every 12 Medical (twelve) Branch hours. fluticasone 2022-0 2022- No 1 puff Uni vers propion-maria teresa [id number] ity of meteroL 13:38: 00:00 [place] (ADVAIR 51 :00 Medical DISKUS) Branch 250-50 mcg/dose inhalation disk fluticasone 2022-0 2022- No 1 puff Uni vers propion-maria teresa 2-08 ity of meteroL 13:38: 00:00 [place] (ADVAIR 51 :00 Medical DISKUS) Branch 250-50 mcg/dose inhalation disk ondansetron 2022- No TAKE 1 Uni vers 4 mg tablet 06-22-08 TABLET ity o f 13:37: 00:00 TWICE A [place] 01 :00 DAY Medical NEEDED FOR Branch MIGRAINE ondansetron 0 2022- No TAKE 1 Uni vers 4 mg tablet 06-22- TABLET ity o f 13:37: 00:00 TWICE A [place] 01 :00 DAY Medical NEEDED FOR Branch MIGRAINE dicyclomine 2022-0 2022- No 1{tbl} Take 1 U nivers 20 mg 06-22- tablet by ity of tablet 13:33: 00:00 mouth in [place] 56 :00 the Medical morning Branch and 1 tablet at noon and 1 tablet in the evening. dicyclomine 2022-0 2022- No 1{tbl} Take 1 U nivers 20 mg 06-22-08 tablet by ity of tablet 13:33: 00:00 mouth in [place] 56 :00 the Medical morning Branch and 1 tablet at noon and 1 tablet in the evening. EPINEPHrine 2022-0 Yes INJECT FOR Univers 0.3 mg/0.3 2-08 ONE DOSE ity o f mL 13:33: NEEDED [place] injection 38 FOR Medical ANAPHYLAXI Branch S EPINEPHrine 2022-0 Yes INJECT FOR Univers 0.3 mg/0.3 2-08 ONE DOSE ity o f mL 13:33: NEEDED [place] injection 38 FOR Medical ANAPHYLAXI Branch S DULoxetine 2022-0 Yes [id number] 30mg Take 1 U nivers 30 mg 2-08 capsule by ity of capsule 00:00: mouth in [place] 00 the Medical morning Branch and 1 capsule in the evening. cyclobenzap 2022-0 Yes [id number] 10mg Take 1 Univers rine 10 mg 2-08 tablet by ity of tablet 00:00: mouth 3 [place] 00 (three) Medical times Branch daily as needed for Muscle Spasms. pregabalin 2022-0 Yes [id number] 150mg Take 1 [facility] 150 mg 2-08 capsule by ity of capsule 00:00: mouth in [place] 00 the Medical morning Branch and 1 capsule at noon and 1 capsule in the evening. DULoxetine 2023-0 Yes [id number] 30mg Take 1 U nivers 30 mg 2-08 capsule by ity of capsule 00:00: mouth in [place] [address] the [facility] morning [place] and 1 capsule in the evening. cyclobenzap 2023-0 Yes [id number] 10mg Take 1 Univers rine 10 mg 2-08 tablet by ity of tablet 00:00: mouth 3 [place] [address] ([facility]) [facility] daily as needed for Muscle Spasms. pregabalin 2023-0 Yes [id number] 150mg Take 1 [facility] 150 mg 2-08 capsule by ity of capsule 00:00: mouth in [place] [address] the [facility] morning [place] and 1 capsule at noon and 1 capsule in the evening. DULoxetine 2023-0 Yes [id number] 30mg Take 1 U nivers 30 mg 2-08 capsule by ity of capsule 00:00: mouth in [address] morning [place] and 1 capsule in the evening. cyclobenzap 2023-0 Yes [id number] 10mg Take 1 Univers rine 10 mg 2-08 tablet by ity of tablet 00:00: mouth 3 [place] [address] ([facility] daily as needed for Muscle Spasms. pregabalin 2023-0 Yes [id number] 150mg Take 1 [facility] 150 mg 2-08 capsule by ity of capsule 00:00: mouth in [address] morning [place] and 1 capsule at noon and 1 capsule in the evening. DULoxetine 2023-0 Yes [id number] 30mg Take 1 U nivers 30 mg 2-08 capsule by ity of capsule 00:00: mouth in [address] morning [place] and 1 capsule in the evening. cyclobenzap 2023-0 Yes [id number] 10mg Take 1 Univers rine 10 mg 2-08 tablet by ity of tablet 00:00: mouth 3 [place] [address] ([facility] daily as needed for Muscle Spasms. pregabalin 2023-0 Yes [id number] 150mg Take 1 [facility] 150 mg 2-08 capsule by ity of capsule 00:00: mouth in [address] morning [place] and 1 capsule at noon and 1 capsule in the evening. DULoxetine 2023-0 Yes [id number] 30mg Take 1 U nivers 30 mg 2-08 capsule by ity of capsule 00:00: mouth in [place] [address] the Medical morning Branch and 1 capsule in the evening. cyclobenzap 3-0 Yes [id number] 10mg Take 1 Univers rine 10 mg 2-08 tablet by ity of tablet 00:00: mouth 3 [place] 00 (three) Medical times Branch daily as needed for Muscle Spasms. pregabalin 3-0 Yes [id number] 150mg Take 1 [facility] 150 mg 2-08 capsule by ity of capsule 00:00: mouth in [place] 00 the Medical morning Branch and 1 capsule at noon and 1 capsule in the evening. nystatin 2022-0 Yes Univers 100,000 2-07 ity of unit/gram 00:00: [place] cream 00 Medical Branch nystatin 2022-0 Yes Univers 100,000 2-07 ity of unit/gram 00:00: [place] cream 00 Medical Branch nystatin 2022-0 Yes Univers 100,000 2-07 ity of unit/gram 00:00: [place] cream 00 Medical Branch nystatin 2022-0 Yes [facility] 100,000 2-07 ity of unit/gram 00:00: [place] cream 00 Medical Branch nystatin 2022-0 Yes Univers 100,000 2-07 ity of unit/gram 00:00: [place] cream 00 Medical Branch varenicline 2022-0 Yes [id number] Take 1 [facility] 0.5 mg 2-03 tablet ity of tablet 00:00: once daily [place] 00 for 3 Medical days; then Branch increase to 1 tablet twice daily for 1 week; then continue 2 tablets twice daily ongoing. varenicline 2022-0 Yes [id number] Take 1 [facility] 0.5 mg 2-03 tablet ity of tablet 00:00: once daily [place] for 3 Medical days; then Branch increase to 1 tablet twice daily for 1 week; then continue 2 tablets twice daily ongoing. varenicline 2022-0 Yes [id number] Take 1 [facility] 0.5 mg 2-03 tablet ity of tablet 00:00: once daily [place] for 3 Medical days; then Branch increase to 1 tablet twice daily for 1 week; then continue 2 tablets twice daily ongoing. varenicline 2022-0 Yes [id number] Take 1 [facility] 0.5 mg 2-03 tablet ity of tablet 00:00: once daily [place] for 3 Medical days; then Branch increase to 1 tablet twice daily for 1 week; then continue 2 tablets twice daily ongoing. varenicline 2022-0 Yes [id number] Take 1 [facility] 0.5 mg 2-03 tablet ity of tablet 00:00: once daily [place] 00 for 3 Medical days; then Branch increase to 1 tablet twice daily for 1 week; then continue 2 tablets twice daily ongoing. varenicline 2022-0 Yes [id number] Take 1 [facility] 0.5 mg 2-03 tablet ity of tablet 00:00: once daily [place] 00 for 3 Medical days; then Branch increase to 1 tablet twice daily for 1 week; then continue 2 tablets twice daily ongoing. BENZONATATE 2022-0 Yes [id number] TAKE 1 [facility] 100 mg 1-25 CAPSULE BY ity of capsule 00:00: MOUTH [place] 00 EVERY 8 Medical HOURS Branch NEEDED FOR COUGH BENZONATATE 2022-0 Yes [id number] TAKE 1 Univers 100 mg 1-25 CAPSULE BY ity of capsule 00:00: MOUTH [place] 00 EVERY 8 Medical HOURS Branch NEEDED FOR COUGH BENZONATATE 2022-0 Yes [id number] TAKE 1 Univers 100 mg 1-25 CAPSULE BY ity of capsule 00:00: MOUTH [place] 00 EVERY 8 Medical HOURS Branch NEEDED FOR COUGH BENZONATATE 2022-0 Yes [id number] TAKE 1 Univers 100 mg 1-25 CAPSULE BY ity of capsule 00:00: MOUTH [place] 00 EVERY 8 Medical HOURS Branch NEEDED FOR COUGH NURTEC ODT 2022-0 Yes Univers 75 mg TbDL 1-09 ity of 00:00: [place] 00 Medical Branch NURTEC ODT 3-0 Yes Univers 75 mg TbDL 1-09 ity of 00:00: [place] 00 Medical Branch NURTEC ODT 2023-0 Yes Univers 75 mg TbDL 1-09 ity of 00:00: [place] 00 Medical Branch NURTEC ODT 3-0 Yes Univers 75 mg TbDL 1-09 ity of 00:00: [place] 00 Medical Branch NURTEC ODT 2023-0 Yes Univers 75 mg TbDL 1-09 ity of 00:00: [place] 00 Medical Branch clindamycin 2022-0 Yes [id number] Apply to Univers 1 % lotion 1-04 area(s) 2 ity of 00:00: (two) [place] 00 times Medical daily. Branch clindamycin 2022-0 Yes [id number] Apply to Univers 1 % lotion 1-04 area(s) 2 ity of 00:00: (two) [place] 00 times Medical daily. Branch clindamycin 3-0 Yes [id number] Apply to Univers 1 % lotion 1-04 area(s) 2 ity of 00:00: (two) [place] 00 times Medical daily. Branch clindamycin 2023-0 Yes [id number] Apply to Univers 1 % lotion 1-04 area(s) 2 ity of 00:00: (two) [place] 00 times Medical daily. Branch clindamycin 2023-0 Yes [id number] Apply to Univers 1 % lotion 1-04 area(s) 2 ity of 00:00: (two) [place] 00 times Medical daily. Branch clindamycin 2023-0 Yes [id number] Apply to Univers 1 % lotion 1-04 area(s) 2 ity of 00:00: (two) [place] 00 times Medical daily. Branch clindamycin 2023-0 Yes [id number] Apply to Univers 1 % lotion 1-04 area(s) 2 ity of 00:00: (two) [place] 00 times Medical daily. Branch clindamycin 3-0 Yes [id number] Apply to Univers 1 % lotion 1-04 area(s) 2 ity of 00:00: (two) [place] 00 times Medical daily. Branch clindamycin 3-0 Yes [id number] Apply to Univers 1 % lotion 1-04 area(s) 2 ity of 00:00: (two) [place] 00 times Medical daily. Branch clindamycin 3-0 2023- No [id number] Apply to Univers 1 % gel -05-18 affected ity of 00:00: 00:00 area(s) 2 [place] 00 :00 (two) Medical times Branch daily. clindamycin 3-0 2023- No [id number] Apply to Univers 1 % gel -04 05-18 affected ity of 00:00: 00:00 area(s) 2 [place] 00 :00 (two) Medical times [place] daily. ergocalcife 2021-05 Yes [id number] Take 1 Univers rol, 1-30 capsule by ity of vitamin d2, 00:00: mouth [place] (VITAMIN 00 weekly. Medical D2) 1,250 Branch mcg (50,000 unit) capsule ergocalcife 2021-05 Yes [id number] Take 1 Univers rol, 1-30 capsule by ity of vitamin d2, 00:00: mouth [place] (VITAMIN 00 weekly. Medical D2) 1,250 Branch mcg (50,000 unit) capsule ergocalcife 2021-05 Yes [id number] Take 1 Univers rol, 1-30 capsule by ity of vitamin d2, 00:00: mouth [place] (VITAMIN 00 weekly. Medical D2) 1,250 Branch mcg (50,000 unit) capsule ergocalcife 2021-05 Yes [id number] Take 1 Univers rol, 1-30 capsule by ity of vitamin d2, 00:00: mouth [place] (VITAMIN 00 weekly. Medical D2) 1,250 Branch mcg (50,000 unit) capsule ergocalcife 2021-05 Yes [id number] Take 1 Univers rol, 1-30 capsule by ity of vitamin d2, 00:00: mouth [place] (VITAMIN 00 weekly. Medical D2) 1,250 Branch mcg (50,000 unit) capsule ergocalcife 2021-05 Yes [id number] Take 1 Univers rol, 1-30 capsule by ity of vitamin d2, 00:00: mouth [place] (VITAMIN 00 weekly. Medical D2) 1,250 Branch mcg (50,000 unit) capsule ergocalcife 2021-05 Yes [id number] Take 1 Univers rol, 1-30 capsule by ity of vitamin d2, 00:00: mouth [place] (VITAMIN 00 weekly. Medical D2) 1,250 Branch mcg (50,000 unit) capsule ergocalcife 2021-05 Yes [id number] Take 1 Univers rol, 1-30 capsule by ity of vitamin d2, 00:00: mouth [place] (VITAMIN 00 weekly. Medical D2) 1,250 Branch mcg (50,000 unit) capsule ergocalcife 2021-05 Yes [id number] Take 1 Univers rol, 1-30 capsule by ity of vitamin d2, 00:00: mouth [place] (VITAMIN 00 weekly. Medical D2) 1,250 Branch mcg (50,000 unit) capsule ergocalcife 2021-05 Yes [id number] Take 1 Univers rol, 1-30 capsule by ity of vitamin d2, 00:00: mouth [place] (VITAMIN 00 weekly. Medical D2) 1,250 Branch mcg (50,000 unit) capsule atorvastati 2021-05 Yes [id number] 20mg Take 1 Univers n 20 mg 1-29 tablet by ity of tablet 00:00: mouth [place] 00 every Medical evening. [place] atorvastati 2021-05 Yes [id number] 20mg Take 1 Univers n 20 mg 1-29 tablet by ity of tablet 00:00: mouth [place] 00 every Medical evening. [place] atorvastati 2021-05 Yes [id number] 20mg Take 1 Univers n 20 mg 1-29 tablet by ity of tablet 00:00: mouth [place] 00 every Medical evening. [place] atorvastati 2021-05 Yes [id number] 20mg Take 1 Univers n 20 mg 1-29 tablet by ity of tablet 00:00: mouth [place] 00 every Medical evening. [place] atorvastati 2021-05 Yes [id number] 20mg Take 1 Univers n 20 mg 1-29 tablet by ity of tablet 00:00: mouth [place] 00 every Medical evening. [place] atorvastati 2021-05 Yes [id number] 20mg Take 1 Univers n 20 mg 1-29 tablet by ity of tablet 00:00: mouth [place] 00 every Medical evening. [place] atorvastati 2021-05- No [id number] 20mg Take 1 Univers n 20 mg 1-29 02-08 tablet by ity of tablet 00:00: 00:00 mouth [place] 00 :00 every Medical evening. [place] atorvastati 2021-05- No [id number] 20mg Take 1 Univers n 20 mg 1-29 02-08 tablet by ity of tablet 00:00: 00:00 mouth [place] 00 :00 every Medical evening. [place] WIXELA 2021-05 Yes Univers INHUB 1-28 ity of 250-50 00:00: [place] mcg/dose 00 Medical inhalation Branch disk WIXELA 2021-05 Yes Univers INHUB 1-28 ity of 250-50 00:00: [place] mcg/dose 00 Medical inhalation Branch disk WIXELA 2021-05 Yes Univers INHUB 1-28 ity of 250-50 00:00: [place] mcg/dose 00 Medical inhalation Branch disk WIXELA 2021-05 Yes Univers INHUB 1-28 ity of 250-50 00:00: [place] mcg/dose 00 Medical inhalation Branch disk WIXELA 2021-05 Yes Univers INHUB 1-28 ity of 250-50 00:00: [place] mcg/dose 00 Medical inhalation Branch disk methylPREDN 2021-05- No [id number] 60mg U nivers ISolone sod 1-18 -18 ity of succ 18:45: 20:18 [place] (SOLU-MEDRO 00 :00 Medical L (PF)) Branch injection 60 mg methylPREDN 2021-05- No [id number] 60mg 60 mg, Univers ISolone sod 1-18 -18 Intramuscu i ty of succ 18:45: 20:18 lar, ONCE, [place] (SOLU-MEDRO 00 :00 1 dose, On Me dical L (PF)) Fri Branch injection 04/01/22 60 mg at 1245, Routine methylPREDN 2021-05- No [id number] 60mg U nivers ISolone sod -18 04-01 ity of succ 18:45: 20:18 [place] (SOLU-MEDRO 00 :00 Medical L (PF)) Branch injection 60 mg methylPREDN 2021-05- No [id number] 60mg 60 mg, Univers ISolone sod 1-18 04-01 Intramuscu i ty of succ 18:45: 20:18 lar, ONCE, [place] (SOLU-MEDRO 00 :00 1 dose, On Me dical L (PF)) Fri Branch injection 04/01/22 60 mg at 1245, Routine azithromyci 2021-05 Yes [id number] 250mg Take 1 Univers n 250 mg 1-18 tablet by ity of tablet 00:00: mouth in [place] 00 the Medical morning. Branch benzonatate 2021-05 Yes [id number] 100mg Take 1 Univers (TESSALON 1-18 capsule by ity of MICHELLE) 100 00:00: mouth [place] mg capsule 00 every 8 Medica l (eight) Branch hours as needed for Cough. azithromyci 2021-05 Yes [id number] 250mg Take 1 Univers n 250 mg 1-18 tablet by ity of tablet 00:00: mouth in [place] 00 the Medical morning. Branch benzonatate 2021-05 Yes [id number] 100mg Take 1 Univers (TESSALON 1-18 capsule by ity of MICHELLE) 100 00:00: mouth [place] mg capsule 00 every 8 Medica l (eight) Branch hours as needed for Cough. azithromyci 2021-05 Yes [id number] 250mg Take 1 Univers n 250 mg 1-18 tablet by ity of tablet 00:00: mouth in [place] 00 the Medical morning. Branch benzonatate 2021-05 Yes [id number] 100mg Take 1 Univers (TESSALON 1-18 capsule by ity of PERLES) 100 00:00: mouth [place] mg capsule 00 every 8 Medica l (eight) Branch hours as needed for Cough. azithromyci 2021-05 Yes [id number] 250mg Take 1 Univers n 250 mg 1-18 tablet by ity of tablet 00:00: mouth in [place] 00 the Medical morning. Branch benzonatate 2021-05 Yes [id number] 100mg Take 1 Univers (TESSALON 1-18 capsule by ity of PERLES) 100 00:00: mouth [place] mg capsule 00 every 8 Medica l (eight) Branch hours as needed for Cough. azithromyci 2021-05 Yes [id number] 250mg Take 1 Univers n 250 mg 1-18 tablet by ity of tablet 00:00: mouth in [place] 00 the Medical morning. Branch benzonatate 2021-05 Yes [id number] 100mg Take 1 Univers (TESSALON 1-18 capsule by ity of PERLES) 100 00:00: mouth [place] mg capsule 00 every 8 Medica l (eight) Branch hours as needed for Cough. azithromyci 2021-05 Yes [id number] 250mg Take 1 Univers n 250 mg 1-18 tablet by ity of tablet 00:00: mouth in [place] 00 the Medical morning. Branch benzonatate 2021-05 Yes [id number] 100mg Take 1 Univers (TESSALON 1-18 capsule by ity of PERLES) 100 00:00: mouth [place] mg capsule 00 every 8 Medica l (eight) Branch hours as needed for Cough. azithromyci 2021-05 Yes [id number] 250mg Take 1 Univers n 250 mg 1-18 tablet by ity of tablet 00:00: mouth in [place] 00 the Medical morning. Branch azithromyci 2021-05 Yes [id number] 250mg Take 1 Univers n 250 mg 1-18 tablet by ity of tablet 00:00: mouth in [place] 00 the Medical morning. Branch azithromyci 2021-05- No [id number] 250mg Take 1 Univers n 250 mg 1-18 02-08 tablet by ity o f tablet 00:00: 00:00 mouth in [place] 00 :00 the Medical morning. Branch azithromyci 2021-05- No [id number] 250mg Take 1 Univers n 250 mg 1-18 02-08 tablet by ity o f tablet 00:00: 00:00 mouth in [place] 00 :00 the Medical morning. Branch benzonatate 2021-05- No [id number] 100mg Take 1 Univers (TESSALON 1-18 01-25 capsule by ity of MICHELLE) 100 00:00: 00:00 mouth [place] mg capsule 00 :00 every 8 Medica l (eight) Branch hours as needed for Cough. atorvastati 2021-05 Yes [id number] 20mg Take 1 Univers n 20 mg 1-16 tablet by ity of tablet 00:00: mouth at [place] 00 bedtime. Medical Branch ergocalcife 2021-05 Yes [id number] Take 1 Univers rol, 1-16 capsule by ity of vitamin d2, 00:00: mouth [place] (VITAMIN 00 weekly. Medical D2) 1,250 Branch mcg (50,000 unit) capsule atorvastati 2021-05 Yes [id number] 20mg Take 1 Univers n 20 mg 1-16 tablet by ity of tablet 00:00: mouth at [place] 00 bedtime. Medical Branch ergocalcife 2021-05 Yes [id number] Take 1 Univers rol, 1-16 capsule by ity of vitamin d2, 00:00: mouth [place] (VITAMIN 00 weekly. Medical D2) 1,250 Branch mcg (50,000 unit) capsule atorvastati 2021-05 Yes [id number] 20mg Take 1 Univers n 20 mg 1-16 tablet by ity of tablet 00:00: mouth at [place] 00 bedtime. Medical [place] ergocalcife 2021-05 Yes [id number] Take 1 Univers rol, 1-16 capsule by ity of vitamin d2, 00:00: mouth [place] (VITAMIN 00 weekly. Medical D2) 1,250 Branch mcg (50,000 unit) capsule atorvastati 2021-05 Yes [id number] 20mg Take 1 Univers n 20 mg 1-16 tablet by ity of tablet 00:00: mouth at [place] 00 bedtime. Medical Branch ergocalcife 2021-05 Yes [id number] Take 1 [facility] rol, 1-16 capsule by ity of vitamin d2, 00:00: mouth [place] (VITAMIN 00 weekly. Medical D2) 1,250 Branch mcg (50,000 unit) capsule ergocalcife 2021-05 Yes [id number] Take 1 Univers rol, 1-16 capsule by ity of vitamin d2, 00:00: mouth [place] (VITAMIN 00 weekly. Medical D2) 1,250 Branch mcg (50,000 unit) capsule ergocalcife 2021-05- No [id number] Take 1 Univers rol, 1-16 11-30 capsule by ity of vitamin d2, 00:00: 00:00 mouth [place] (VITAMIN 00 :00 weekly. Medical D2) 1,250 Branch mcg (50,000 unit) capsule atorvastati 2021-05- No [id number] 20mg Take 1 Univers n 20 mg 1-16 11-29 tablet by ity of tablet 00:00: 00:00 mouth at [place] 00 :00 bedtime. Medical Branch ergocalcife 2021-05- No [id number] Take 1 [facility] rol, 1-16 11-16 capsule by ity of vitamin d2, 00:00: 00:00 mouth [place] (VITAMIN 00 :00 weekly. Medical D2) 1,250 Branch mcg (50,000 unit) capsule atorvastati 2021-05- No [id number] 20mg Take 1 Univers n 20 mg 1-16 11-16 tablet by ity of tablet 00:00: 00:00 mouth at [place] 00 :00 bedtime. Medical Branch estradiol 2 2021-05- No [id number] 2mg Take 2 mg Univers mg tablet 05-28 by mouth ity o f 09:13: 00:00 daily. [place] 25 :00 Medical Branch montelukast 2021-05- No [id number] 10mg Take 10 mg Univers 10 mg -28 03-14 by mouth ity of tablet 09:13: 00:00 daily. [place] 25 :00 Medical Branch cetirizine 2021-05- No [id number] 10mg Take 10 mg Univers (ZYRTEC) 10 05-28 by mouth ity of mg tablet 09:13: 00:00 daily. [place] 25 :00 [facility] Branch ondansetron 2021-05- No [id number] 4mg Take 4 mg Univers (ZOFRAN 05-28 by mouth ity of ODT) 4 mg 09:13: 00:00 every 8 [place] disintegrat 25 :00 (eight) Medic al ing tablet hours as Branc h needed. Fluticasone 2021-05- No Advair Uni vers -Salmeterol 05-28 Diskus 500 i ty of 500-50 09:13: 00:00 mcg-50 [place] mcg/dose 25 :00 mcg/dose Medical inhalation powder for [facility] disk inhalation solifenacin 2021-05 No 10mg Take 10 mg Univers 10 mg 05-28 by mouth. ity of tablet 09:13: 00:00 [place] [address] :00 [facility] Branch cyclobenzap 2021-05 No 10mg Take 10 mg Univers rine 10 mg 05-28 by mouth 3 it y of tablet 09:13: 00:00 (three) [place] 25 :00 times Medical daily as Branch needed. estradiol 2 2021-05- No [id number] 2mg Take 2 mg Univers mg tablet 05-28 by mouth ity o f 09:13: 00:00 daily. [place] 25 :00 [facility] Branch montelukast 2021-05- No [id number] 10mg Take 10 mg Univers 10 mg 05-28 by mouth ity of tablet 09:13: 00:00 daily. [place] 25 :00 [facility] Branch cetirizine 2021-05- No [id number] 10mg Take 10 mg Univers (ZYRTEC) 10 05-28 by mouth ity of mg tablet 09:13: 00:00 daily. [place] 25 :00 [facility] Branch ondansetron 2021-05- No [id number] 4mg Take 4 mg Univers (ZOFRAN 05-2814 by mouth ity of ODT) 4 mg 09:13: 00:00 every 8 [place] disintegr[place] 25 :00 (eight) Medic al ing tablet hours as Branc h needed. Fluticasone 2021-05- No Advair Uni vers -Salmeterol 05-28 Diskus 500 i ty of 500-50 09:13: 00:00 mcg-50 [place] mcg/dose 25 :00 mcg/dose Medical inhalation powder for Bra n[facility] disk inhalation solifenacin 2021-05- No 10mg Take 10 mg Univers 10 mg 05-28 by mouth. ity of tablet 09:13: 00:00 [place] 25 :00 Medical Branch cyclobenzap 2021-05- No 10mg Take 10 mg Univers rine 10 mg 05-28 by mouth 3 it y of tablet 09:13: 00:00 (three) [place] 25 :00 times Medical daily as Branch needed. estradiol 2 2021-05- No [id number] 2mg Take 2 mg Univers mg tablet 05-28 by mouth ity o f 09:13: 00:00 daily. [place] 25 :00 [facility] Branch montelukast 2021-05- No [id number] 10mg Take 10 mg Univers 10 mg 05-28 by mouth ity of tablet 09:13: 00:00 daily. [place] 25 :00 [facility] Branch cetirizine 2021-05- No [id number] 10mg Take 10 mg Univers (ZYRTEC) 10 05-28 by mouth ity of mg tablet 09:13: 00:00 daily. [place] 25 :00 [facility] Branch ondansetron 2021-05- No [id number] 4mg Take 4 mg Univers (ZOFRAN 05-28 by mouth ity of ODT) 4 mg 09:13: 00:00 every 8 [place] dis[place] :00 (eight) Medic al ing tablet hours as Branc h needed. Fluticasone 2021-05- No Advair Uni vers -Salmeterol 05-28 Diskus 500 i ty of 500-50 09:13: 00:00 mcg-50 [place] mcg/dose 25 :00 mcg/dose Medical inhalation powder for Bra nch disk inhalation solifenacin 2021-05- No 10mg Take 10 mg Univers 10 mg 05-28 by mouth. ity of tablet 09:13: 00:00 [place] 25 :00 Medical Branch cyclobenzap 2021-05- No 10mg Take 10 mg Univers rine 10 mg 05-2814 by mouth 3 it y of tablet 09:13: 00:00 (three) [place] 25 :00 times Medical daily as Branch needed. estradiol 2 2021-05- No [id number] 2mg Take 2 mg Univers mg tablet 05-28 by mouth ity o f 09:13: 00:00 daily. [place] 25 :00 Medical Branch montelukast 2021-05- No [id number] 10mg Take 10 mg Univers 10 mg 05-28 by mouth ity of tablet 09:13: 00:00 daily. [place] 25 :00 [facility] Branch cetirizine 2021-05- No [id number] 10mg Take 10 mg Univers (ZYRTEC) 10 05-28 by mouth ity of mg tablet 09:13: 00:00 daily. [place] 25 :00 [facility] Branch ondansetron 2021-05- No [id number] 4mg Take 4 mg Univers (ZOFRAN 05-28 by mouth ity of ODT) 4 mg 09:13: 00:00 every 8 [place] disintegr[place] 25 :00 (eight) Medic al ing tablet hours as Branc h needed. Fluticasone 2021-05- No Advair Uni vers -Salmeterol 05-28 Diskus 500 i ty of 500-50 09:13: 00:00 mcg-50 [place] mcg/dose 25 :00 mcg/dose Medical inhalation powder for [facility] disk inhalation solifenacin 2021-05- No 10mg Take 10 mg Univers 10 mg 05-2814 by mouth. ity of tablet 09:13: 00:00 [place] 25 :00 Medical Branch cyclobenzap 2021-05- No 10mg Take 10 mg Univers rine 10 mg 05-2814 by mouth 3 it y of tablet 09:13: 00:00 (three) [place] 25 :00 times Medical daily as Branch needed. guaiFENesin 2021-05 Yes 1200mg Take 1,200 Univers 600 mg 1-14 mg by ity of tablet 09:02: mouth [place] 03 every 12 Medical (twelve) Branch hours. guaiFENesin 2022-1 Yes 1200mg Take 1,200 [facility] 600 mg 1-14 mg by ity of tablet 09:02: mouth [place] 03 every 12 Medical (twelve) Branch hours. guaiFENesin 2022-1 Yes 1200mg Take 1,200 [facility] 600 mg 1-14 mg by ity of tablet 09:02: mouth [place] 03 every 12 Medical (twelve) Branch hours. guaiFENesin 2022-1 Yes 1200mg Take 1,200 [facility] 600 mg 1-14 mg by ity of tablet 09:02: mouth [place] 03 every 12 Medical (twelve) Branch hours. guaiFENesin 2022-1 Yes 1200mg Take 1,200 [facility] 600 mg 1-14 mg by ity of tablet 09:02: mouth [place] 03 every 12 Medical (twelve) Branch hours. guaiFENesin 2022-1 Yes 1200mg Take 1,200 [facility] 600 mg 1-14 mg by ity of tablet 09:02: mouth [place] 03 every 12 Medical (twelve) Branch hours. guaiFENesin 2022-1 Yes 1200mg Take 1,200 [facility] 600 mg 1-14 mg by ity of tablet 09:02: mouth [place] 03 every 12 Medical (twelve) Branch hours. guaiFENesin 2022-1 Yes 1200mg Take 1,200 [facility] 600 mg 1-14 mg by ity of tablet 09:02: mouth [place] 03 every 12 Medical (twelve) Branch hours. guaiFENesin 2022-1 Yes 1200mg Take 1,200 [facility] 600 mg 1-14 mg by ity of tablet 09:02: mouth [place] 03 every 12 Medical (twelve) Branch hours. guaiFENesin 2022-1 Yes 1200mg Take 1,200 [facility] 600 mg 1-14 mg by ity of tablet 09:02: mouth [place] 03 every 12 Medical (twelve) Branch hours. guaiFENesin 2022-1 Yes 1200mg Take 1,200 [facility] 600 mg 1-14 mg by ity of tablet 09:02: mouth [place] 03 every 12 Medical (twelve) Branch hours. guaiFENesin 2022-1 Yes 1200mg Take 1,200 [facility] 600 mg 1-14 mg by ity of tablet 09:02: mouth [place] 03 every 12 Medical (twelve) Branch hours. guaiFENesin 2022-1 Yes 1200mg Take 1,200 [facility] 600 mg 1-14 mg by ity of tablet 09:02: mouth [place] 03 every 12 Medical (twelve) Branch hours. guaiFENesin 2021-05 Yes 1200mg Take 1,200 [facility] 600 mg 1-14 mg by ity of tablet 09:02: mouth [place] 03 every 12 Medical (twelve) Branch hours. guaiFENesin 2021-05 Yes 1200mg Take 1,200 [facility] 600 mg 1-14 mg by ity of tablet 09:02: mouth [place] 03 every 12 Medical (twelve) Branch hours. guaiFENesin 2021-05 Yes 1200mg Take 1,200 [facility] 600 mg 1-14 mg by ity of tablet 09:02: mouth [place] 03 every 12 Medical (twelve) Branch hours. guaiFENesin 2021-05 Yes 1200mg Take 1,200 [facility] 600 mg 1-14 mg by ity of tablet 09:02: mouth [place] 03 every 12 Medical (twelve) Branch hours. ranitidine 2021-05- No [id number] 300mg Take 300 [facility] 300 mg 1-14 11-14 mg by ity of tablet 08:52: 00:00 mouth [place] 41 :00 daily. Medical Branch ranitidine 2021-05- No [id number] 300mg Take 300 [facility] 300 mg 1-14 11-14 mg by ity of tablet 08:52: 00:00 mouth [place] 41 :00 daily. Medical Branch ranitidine 2021-05- No [id number] 300mg Take 300 [facility] 300 mg 1-14 11-14 mg by ity of tablet 08:52: 00:00 mouth [place] 41 :00 daily. Medical Branch ranitidine 2021-05- No [id number] 300mg Take 300 [facility] 300 mg 1-14 11-14 mg by ity of tablet 08:52: 00:00 mouth [place] 41 :00 daily. Medical Branch omeprazole 2021-05- No [id number] 40mg Take 40 mg [facility] (PRILOSEC) -14 11-14 by mouth 2 it y of 40 mg 08:52: 00:00 (two) [place] capsule 26 :00 times Medical daily. Branch omeprazole 2021-05- No [id number] 40mg Take 40 mg [facility] (PRILOSEC) -14 -14 by mouth 2 it y of 40 mg 08:52: 00:00 (two) [place] capsule 26 :00 times Medical daily. Branch omeprazole 2021-05- No [id number] 40mg Take 40 mg [facility] (PRILOSEC) 05-28 by mouth 2 it y of 40 mg 08:52: 00:00 (two) [place] capsule 26 :00 times Medical daily. Branch omeprazole 2021-05- No [id number] 40mg Take 40 mg [facility] (PRILOSEC) 05-28 by mouth 2 it y of 40 mg 08:52: 00:00 (two) [place] capsule 26 :00 times Medical daily. Branch Butalbital- 2021-05- No 1{capsu Take 1 [facility] Acetaminoph 05-28 le} capsule by i ty of en-Caff 08:45: 00:00 mouth. [place] 50-300-40 39 :00 Medical mg per Branch capsule Butalbital- 2021-05- No 1{capsu Take 1 [facility] Acetaminoph 05-28 le} capsule by i ty of en-Caff 08:45: 00:00 mouth. [place] 50-300-40 39 :00 Medical mg per Branch capsule Butalbital- 2021-05- No 1{capsu Take 1 [facility] Acetaminoph 05-28 le} capsule by i ty of en-Caff 08:45: 00:00 mouth. [place] 50-300-40 39 :00 Medical mg per Branch capsule Butalbital- 2021-05- No 1{capsu Take 1 [facility] Acetaminoph 05-28 le} capsule by i ty of en-Caff 08:45: 00:00 mouth. [place] 50-300-40 39 :00 Medical mg per Branch capsule acetaminoph 2021-05- No acetaminop [facility] en-codeine 05-28 hen 300 ity o f 300-30 mg 08:45: 00:00 mg-codeine [place] tablet 27 :00 30 mg Medical tablet Branch TAKE 1-2 TABLETS BY MOUTH EVERY 6 HOURS NEEDED FOR PAIN acetaminoph 2021-05- No acetaminop [facility] en-codeine 05-28 hen 300 ity o f 300-30 mg 08:45: 00:00 mg-codeine [place] tablet 27 :00 30 mg Medical tablet Branch TAKE 1-2 TABLETS BY MOUTH EVERY 6 HOURS NEEDED FOR PAIN acetaminoph 2021-05- No acetaminop [facility] en-codeine -03-28 hen 300 ity o f 300-30 mg 08:45: 00:00 mg-codeine [place] tablet 27 :00 30 mg Medical tablet Branch TAKE 1-2 TABLETS BY MOUTH EVERY 6 HOURS NEEDED FOR PAIN acetaminoph 2021-05- No acetaminop [facility] en-codeine 05-28 hen 300 ity o f 300-30 mg 08:45: 00:00 mg-codeine [place] tablet 27 :00 30 mg Medical tablet Branch TAKE 1-2 TABLETS BY MOUTH EVERY 6 HOURS NEEDED FOR PAIN albuterol 2021-05 Yes [id number] 2{puff} Inhale 2 [facility] (PROAIR 1-14 Puffs ity of HFA) 90 00:00: every 4 [place] mcg/actuati 00 (four) Medica l on inhaler hours as Branc h needed for Wheezing or Shortness of Breath. cetirizine 2021-05 Yes [id number] 10mg Take 1 [facility] (ZYRTEC) 10 1-14 tablet by ity of mg tablet 00:00: mouth in [facility] the Medical morning. Branch Fluticasone 2021-05 Yes [id number] Advair [facility] -Salmeterol 1-14 Diskus 500 it y of 500-50 00:00: mcg-50 [place] mcg/dose 00 mcg/dose Medical inhalation powder for [facility] disk inhalation montelukast 2021-05 Yes [id number] 10mg Take 1 [facility] 10 mg 1-14 tablet by ity of tablet 00:00: mouth in [place] 00 the Medical morning. Branch ondansetron 2021-05 Yes [id number] 4mg Take 1 [facility] (ZOFRAN 1-14 tablet by ity of ODT) 4 mg 00:00: mouth [place] disintegrat 00 every 8 Medic al ing tablet (eight) Branch hours as needed for Nausea and Vomiting (N/V). RABEprazole 2021-05 Yes [id number] 20mg Take 1 [facility] 20 mg 1-14 tablet by ity of tablet 00:00: mouth in [place] 00 the Medical morning. Branch estradioL 2 2021-05 Yes [id number] 2mg Take 1 [facility] mg tablet 1-14 tablet by ity o f 00:00: mouth in [place] 00 the Medical morning. Branch cyclobenzap 2021-05 Yes [id number] 10mg Take 1 [facility] rine 10 mg 1-14 tablet by ity of tablet 00:00: mouth 3 [place] 00 (three) Medical times Branch daily as needed for Muscle Spasms. solifenacin 2021-05 Yes [id number] 10mg Take 1 [facility] 10 mg 1-14 tablet by ity of tablet 00:00: mouth in [place] 00 the Medical morning. Branch lisinopriL 2021-05 Yes [id number] 20mg Take 1 [facility] 20 mg 1-14 tablet by ity of tablet 00:00: mouth in [place] 00 the Medical morning. Branch albuterol 2021-05 Yes [id number] 2{puff} Inhale 2 [facility] (PROAIR 1-14 Puffs ity of HFA) 90 00:00: every 4 [place] mcg/actuati 00 (four) Medica l on inhaler hours as Branc h needed for Wheezing or Shortness of Breath. cetirizine 2021-05 Yes [id number] 10mg Take 1 [facility] (ZYRTEC) 10 1-14 tablet by ity of mg tablet 00:00: mouth in [facility] 00 the Medical morning. Branch Fluticasone 2021-05 Yes [id number] Advair [facility] -Salmeterol 1-14 Diskus 500 it y of 500-50 00:00: mcg-50 [place] mcg/dose 00 mcg/dose Medical inhalation powder for [facility] disk inhalation montelukast 2021-05 Yes [id number] 10mg Take 1 [facility] 10 mg 1-14 tablet by ity of tablet 00:00: mouth in [place] 00 the Medical morning. Branch ondansetron 2021-05 Yes [id number] 4mg Take 1 [facility] (ZOFRAN 1-14 tablet by ity of ODT) 4 mg 00:00: mouth [place] disintegrat 00 every 8 Medic al ing tablet (eight) Branch hours as needed for Nausea and Vomiting (N/V). RABEprazole 2021-05 Yes [id number] 20mg Take 1 [facility] 20 mg 1-14 tablet by ity of tablet 00:00: mouth in [place] 00 the Medical morning. Branch estradioL 2 2021-05 Yes [id number] 2mg Take 1 [facility] mg tablet 1-14 tablet by ity o f 00:00: mouth in [place] 00 the Medical morning. Branch cyclobenzap 2021-05 Yes [id number] 10mg Take 1 [facility] rine 10 mg 1-14 tablet by ity of tablet 00:00: mouth 3 [place] 00 (three) Medical times Branch daily as needed for Muscle Spasms. solifenacin 2021-05 Yes [id number] 10mg Take 1 [facility] 10 mg 1-14 tablet by ity of tablet 00:00: mouth in [place] 00 the Medical morning. Branch lisinopriL 2021-05 Yes [id number] 20mg Take 1 [facility] 20 mg 1-14 tablet by ity of tablet 00:00: mouth in [place] 00 the Medical morning. Branch albuterol 2021-05 Yes [id number] 2{puff} Inhale 2 [facility] (PROAIR 1-14 Puffs ity of HFA) 90 00:00: every 4 [place] mcg/actuati 00 (four) Medica l on inhaler hours as Branc h needed for Wheezing or Shortness of Breath. cetirizine 2021-05 Yes [id number] 10mg Take 1 [facility] (ZYRTEC) 10 1-14 tablet by ity of mg tablet 00:00: mouth in [facility] 00 the Medical morning. Branch Fluticasone 2021-05 Yes [id number] Advair [facility] -Salmeterol 1-14 Diskus 500 it y of 500-50 00:00: mcg-50 [place] mcg/dose 00 mcg/dose Medical inhalation powder for [facility] disk inhalation montelukast 2021-05 Yes [id number] 10mg Take 1 [facility] 10 mg 1-14 tablet by ity of tablet 00:00: mouth in [place] 00 the Medical morning. Branch ondansetron 2021-05 Yes [id number] 4mg Take 1 [facility] (ZOFRAN 1-14 tablet by ity of ODT) 4 mg 00:00: mouth [place] disintegrat 00 every 8 Medic al ing tablet (eight) Branch hours as needed for Nausea and Vomiting (N/V). RABEprazole 2021-05 Yes [id number] 20mg Take 1 [facility] 20 mg 1-14 tablet by ity of tablet 00:00: mouth in [place] 00 the Medical morning. Branch estradioL 2 2021-05 Yes [id number] 2mg Take 1 [facility] mg tablet 1-14 tablet by ity o f 00:00: mouth in [place] 00 the Medical morning. Branch cyclobenzap 2021-05 Yes [id number] 10mg Take 1 [facility] rine 10 mg 1-14 tablet by ity of tablet 00:00: mouth 3 [place] 00 (three) Medical times Branch daily as needed for Muscle Spasms. solifenacin 2021-05 Yes [id number] 10mg Take 1 [facility] 10 mg 1-14 tablet by ity of tablet 00:00: mouth in [place] 00 the Medical morning. Branch lisinopriL 2021-05 Yes [id number] 20mg Take 1 [facility] 20 mg 1-14 tablet by ity of tablet 00:00: mouth in [place] 00 the Medical morning. Branch albuterol 2021-05 Yes [id number] 2{puff} Inhale 2 [facility] (PROAIR 1-14 Puffs ity of HFA) 90 00:00: every 4 [place] mcg/actuati 00 (four) Medica l on inhaler hours as Branc h needed for Wheezing or Shortness of Breath. cetirizine 2021-05 Yes [id number] 10mg Take 1 [facility] (ZYRTEC) 10 1-14 tablet by ity of mg tablet 00:00: mouth in [facility] 00 the Medical morning. Branch Fluticasone 2021-05 Yes [id number] Advair [facility] -Salmeterol 1-14 Diskus 500 it y of 500-50 00:00: mcg-50 [place] mcg/dose 00 mcg/dose Medical inhalation powder for [facility] disk inhalation montelukast 2021-05 Yes [id number] 10mg Take 1 [facility] 10 mg 1-14 tablet by ity of tablet 00:00: mouth in [place] 00 the Medical morning. Branch ondansetron 2021-05 Yes [id number] 4mg Take 1 [facility] (ZOFRAN 1-14 tablet by ity of ODT) 4 mg 00:00: mouth [place] disintegrat 00 every 8 Medic al ing tablet (eight) Branch hours as needed for Nausea and Vomiting (N/V). RABEprazole 2021-05 Yes [id number] 20mg Take 1 [facility] 20 mg 1-14 tablet by ity of tablet 00:00: mouth in [place] 00 the Medical morning. Branch estradioL 2 2021-05 Yes [id number] 2mg Take 1 [facility] mg tablet 1-14 tablet by ity o f 00:00: mouth in [place] 00 the Medical morning. Branch cyclobenzap 2021-05 Yes [id number] 10mg Take 1 [facility] rine 10 mg 1-14 tablet by ity of tablet 00:00: mouth 3 [place] [address] (three) Medical times Branch daily as needed for Muscle Spasms. solifenacin 2021-05 Yes [id number] 10mg Take 1 [facility] 10 mg 1-14 tablet by ity of tablet 00:00: mouth in [place] 00 the Medical morning. Branch lisinopriL 2021-05 Yes [id number] 20mg Take 1 U n[facility] 20 mg 1-14 tablet by ity of tablet 00:00: mouth in [place] 00 the Medical morning. Branch albuterol 2021-05 Yes [id number] 2{puff} Inhale 2 [facility] (PROAIR 1-14 Puffs ity of HFA) 90 00:00: every 4 [place] mcg/actuati 00 (four) Medica l on inhaler hours as Branc h needed for Wheezing or Shortness of Breath. cetirizine 2021-05 Yes [id number] 10mg Take 1 [facility] (ZYRTEC) 10 1-14 tablet by ity of mg tablet 00:00: mouth in [facility] 00 the Medical morning. Branch Fluticasone 2021-05 Yes [id number] Advair [facility] -Salmeterol 1-14 Diskus 500 it y of 500-50 00:00: mcg-50 [place] mcg/dose 00 mcg/dose Medical inhalation powder for [facility] disk inhalation montelukast 2021-05 Yes [id number] 10mg Take 1 [facility] 10 mg 1-14 tablet by ity of tablet 00:00: mouth in [place] 00 the Medical morning. Branch ondansetron 2021-05 Yes [id number] 4mg Take 1 [facility] (ZOFRAN 1-14 tablet by ity of ODT) 4 mg 00:00: mouth [place] disintegrat 00 every 8 Medic al ing tablet (eight) Branch hours as needed for Nausea and Vomiting (N/V). RABEprazole 2021-05 Yes [id number] 20mg Take 1 [facility] 20 mg 1-14 tablet by ity of tablet 00:00: mouth in [place] 00 the Medical morning. Branch estradioL 2 2021-05 Yes [id number] 2mg Take 1 [facility] mg tablet 1-14 tablet by ity o f 00:00: mouth in [place] 00 the Medical morning. Branch cyclobenzap 2021-05 Yes [id number] 10mg Take 1 [facility] rine 10 mg 1-14 tablet by ity of tablet 00:00: mouth 3 [place] 00 (three) Medical times Branch daily as needed for Muscle Spasms. solifenacin 2021-05 Yes [id number] 10mg Take 1 [facility] 10 mg 1-14 tablet by ity of tablet 00:00: mouth in [place] 00 the Medical morning. Branch lisinopriL 2021-05 Yes [id number] 20mg Take 1 [facility] n[facility] 20 mg 1-14 tablet by ity of tablet 00:00: mouth in [place] 00 the Medical morning. Branch albuterol 2021-05 Yes [id number] 2{puff} Inhale 2 [facility] (PROAIR 1-14 Puffs ity of HFA) 90 00:00: every 4 [place] mcg/actuati 00 (four) Medica l on inhaler hours as Branc h needed for Wheezing or Shortness of Breath. cetirizine 2021-05 Yes [id number] 10mg Take 1 [facility] (ZYRTEC) 10 1-14 tablet by ity of mg tablet 00:00: mouth in [facility] 00 the Medical morning. Branch Fluticasone 2021-05 Yes [id number] Advair [facility] -Salmeterol 1-14 Diskus 500 it y of 500-50 00:00: mcg-50 [place] mcg/dose 00 mcg/dose Medical inhalation powder for [facility] disk inhalation montelukast 2021-05 Yes [id number] 10mg Take 1 [facility] 10 mg 1-14 tablet by ity of tablet 00:00: mouth in [place] 00 the Medical morning. Branch ondansetron 2021-05 Yes [id number] 4mg Take 1 [facility] (ZOFRAN 1-14 tablet by ity of ODT) 4 mg 00:00: mouth [place] disintegrat 00 every 8 Medic al ing tablet (eight) Branch hours as needed for Nausea and Vomiting (N/V). RABEprazole 2021-05 Yes [id number] 20mg Take 1 [facility] 20 mg 1-14 tablet by ity of tablet 00:00: mouth in [place] 00 the Medical morning. Branch estradioL 2 2021-05 Yes [id number] 2mg Take 1 [facility] mg tablet 1-14 tablet by ity o f 00:00: mouth in [place] 00 the Medical morning. Branch cyclobenzap 2021-05 Yes [id number] 10mg Take 1 [facility] rine 10 mg 1-14 tablet by ity of tablet 00:00: mouth 3 [place] [address] (three) Medical times Branch daily as needed for Muscle Spasms. solifenacin 2021-05 Yes [id number] 10mg Take 1 [facility] 10 mg 1-14 tablet by ity of tablet 00:00: mouth in [place] 00 the Medical morning. Branch lisinopriL 2021-05 Yes [id number] 20mg Take 1 U nivers 20 mg 1-14 tablet by ity of tablet 00:00: mouth in [place] 00 the Medical morning. Branch albuterol 2021-05 Yes [id number] 2{puff} Inhale 2 [facility] (PROAIR 1-14 Puffs ity of HFA) 90 00:00: every 4 [place] mcg/actuati 00 (four) Medica l on inhaler hours as Branc h needed for Wheezing or Shortness of Breath. cetirizine 2021-05 Yes [id number] 10mg Take 1 [facility] (ZYRTEC) 10 1-14 tablet by ity of mg tablet 00:00: mouth in [facility] 00 the Medical morning. Branch Fluticasone 2021-05 Yes [id number] Advair [facility] -Salmeterol 1-14 Diskus 500 it y of 500-50 00:00: mcg-50 [place] mcg/dose 00 mcg/dose Medical inhalation powder for [facility] disk inhalation montelukast 2021-05 Yes [id number] 10mg Take 1 [facility] 10 mg 1-14 tablet by ity of tablet 00:00: mouth in [place] 00 the Medical morning. Branch ondansetron 2021-05 Yes [id number] 4mg Take 1 [facility] (ZOFRAN 1-14 tablet by ity of ODT) 4 mg 00:00: mouth [place] disintegrat 00 every 8 Medic al ing tablet (eight) Branch hours as needed for Nausea and Vomiting (N/V). RABEprazole 2021-05 Yes [id number] 20mg Take 1 [facility] 20 mg 1-14 tablet by ity of tablet 00:00: mouth in [place] 00 the Medical morning. Branch estradioL 2 2021-05 Yes [id number] 2mg Take 1 [facility] mg tablet 1-14 tablet by ity o f 00:00: mouth in [place] 00 the Medical morning. Branch cyclobenzap 2021-05 Yes [id number] 10mg Take 1 [facility] rine 10 mg 1-14 tablet by ity of tablet 00:00: mouth 3 [place] [address] (three) Medical times Branch daily as needed for Muscle Spasms. solifenacin 2021-05 Yes [id number] 10mg Take 1 [facility] 10 mg 1-14 tablet by ity of tablet 00:00: mouth in [place] 00 the Medical morning. Branch lisinopriL 2021-05 Yes [id number] 20mg Take 1 U nivers 20 mg 1-14 tablet by ity of tablet 00:00: mouth in [place] 00 the Medical morning. Branch albuterol 2021-05 Yes [id number] 2{puff} Inhale 2 [facility] (PROAIR 1-14 Puffs ity of HFA) 90 00:00: every 4 [place] mcg/actuati 00 (four) Medica l on inhaler hours as Branc h needed for Wheezing or Shortness of Breath. cetirizine 2021-05 Yes [id number] 10mg Take 1 [facility] (ZYRTEC) 10 1-14 tablet by ity of mg tablet 00:00: mouth in [facility] 00 the Medical morning. Branch Fluticasone 2021-05 Yes [id number] Advair [facility] -Salmeterol 1-14 Diskus 500 it y of 500-50 00:00: mcg-50 [place] mcg/dose 00 mcg/dose Medical inhalation powder for [facility] disk inhalation montelukast 2021-05 Yes [id number] 10mg Take 1 [facility] 10 mg 1-14 tablet by ity of tablet 00:00: mouth in [place] 00 the Medical morning. Branch ondansetron 2021-05 Yes [id number] 4mg Take 1 [facility] (ZOFRAN 1-14 tablet by ity of ODT) 4 mg 00:00: mouth [place] disintegrat 00 every 8 Medic al ing tablet (eight) Branch hours as needed for Nausea and Vomiting (N/V). RABEprazole 2021-05 Yes [id number] 20mg Take 1 [facility] 20 mg 1-14 tablet by ity of tablet 00:00: mouth in [place] 00 the Medical morning. Branch estradioL 2 2021-05 Yes [id number] 2mg Take 1 [facility] mg tablet 1-14 tablet by ity o f 00:00: mouth in [place] 00 the Medical morning. Branch cyclobenzap 2021-05 Yes [id number] 10mg Take 1 [facility] rine 10 mg 1-14 tablet by ity of tablet 00:00: mouth 3 [place] [address] (three) Medical times Branch daily as needed for Muscle Spasms. solifenacin 2021-05 Yes [id number] 10mg Take 1 [facility] 10 mg 1-14 tablet by ity of tablet 00:00: mouth in [place] 00 the Medical morning. Branch lisinopriL 2021-05 Yes [id number] 20mg Take 1 U nivers 20 mg 1-14 tablet by ity of tablet 00:00: mouth in [place] 00 the Medical morning. Branch albuterol 2021-05 Yes [id number] 2{puff} Inhale 2 [facility] (PROAIR 1-14 Puffs ity of HFA) 90 00:00: every 4 [place] mcg/actuati 00 (four) Medica l on inhaler hours as Branc h needed for Wheezing or Shortness of Breath. cetirizine 2021-05 Yes [id number] 10mg Take 1 [facility] (ZYRTEC) 10 1-14 tablet by ity of mg tablet 00:00: mouth in [facility] 00 the Medical morning. Branch Fluticasone 2021-05 Yes [id number] Advair [facility] -Salmeterol 1-14 Diskus 500 it y of 500-50 00:00: mcg-50 [place] mcg/dose 00 mcg/dose Medical inhalation powder for [facility] disk inhalation montelukast 2021-05 Yes [id number] 10mg Take 1 [facility] 10 mg 1-14 tablet by ity of tablet 00:00: mouth in [place] 00 the Medical morning. Branch ondansetron 2021-05 Yes [id number] 4mg Take 1 [facility] (ZOFRAN 1-14 tablet by ity of ODT) 4 mg 00:00: mouth [place] disintegrat 00 every 8 Medic al ing tablet (eight) Branch hours as needed for Nausea and Vomiting (N/V). RABEprazole 2021-05 Yes [id number] 20mg Take 1 [facility] 20 mg 1-14 tablet by ity of tablet 00:00: mouth in [place] 00 the Medical morning. Branch estradioL 2 2021-05 Yes [id number] 2mg Take 1 [facility] mg tablet 1-14 tablet by ity o f 00:00: mouth in [place] 00 the Medical morning. Branch cyclobenzap 2021-05 Yes [id number] 10mg Take 1 [facility] rine 10 mg 1-14 tablet by ity of tablet 00:00: mouth 3 [place] 00 (three) Medical times Branch daily as needed for Muscle Spasms. solifenacin 2021-05 Yes [id number] 10mg Take 1 [facility] 10 mg 1-14 tablet by ity of tablet 00:00: mouth in [place] 00 the Medical morning. Branch lisinopriL 2021-05 Yes [id number] 20mg Take 1 U nivers 20 mg 1-14 tablet by ity of tablet 00:00: mouth in [place] 00 the Medical morning. Branch albuterol 2021-05 Yes [id number] 2{puff} Inhale 2 [facility] (PROAIR 1-14 Puffs ity of HFA) 90 00:00: every 4 [place] mcg/actuati 00 (four) Medica l on inhaler hours as Branc h needed for Wheezing or Shortness of Breath. cetirizine 2021-05 Yes [id number] 10mg Take 1 [facility] (ZYRTEC) 10 1-14 tablet by ity of mg tablet 00:00: mouth in [facility] 00 the Medical morning. Branch Fluticasone 2021-05 Yes [id number] Advair [facility] -Salmeterol 1-14 Diskus 500 it y of 500-50 00:00: mcg-50 [place] mcg/dose 00 mcg/dose Medical inhalation powder for [facility] disk inhalation montelukast 2021-05 Yes [id number] 10mg Take 1 [facility] 10 mg 1-14 tablet by ity of tablet 00:00: mouth in [place] 00 the Medical morning. Branch ondansetron 2021-05 Yes [id number] 4mg Take 1 [facility] (ZOFRAN 1-14 tablet by ity of ODT) 4 mg 00:00: mouth [place] disintegrat 00 every 8 Medic al ing tablet (eight) Branch hours as needed for Nausea and Vomiting (N/V). RABEprazole 2021-05 Yes [id number] 20mg Take 1 [facility] 20 mg 1-14 tablet by ity of tablet 00:00: mouth in [place] 00 the Medical morning. Branch estradioL 2 2021-05 Yes [id number] 2mg Take 1 [facility] mg tablet 1-14 tablet by ity o f 00:00: mouth in [place] 00 the Medical morning. Branch cyclobenzap 2021-05 Yes [id number] 10mg Take 1 [facility] rine 10 mg 1-14 tablet by ity of tablet 00:00: mouth 3 [place] 00 (three) Medical times Branch daily as needed for Muscle Spasms. solifenacin 2021-05 Yes [id number] 10mg Take 1 [facility] 10 mg 1-14 tablet by ity of tablet 00:00: mouth in [place] 00 the Medical morning. Branch lisinopriL 2021-05 Yes [id number] 20mg Take 1 U nivers 20 mg 1-14 tablet by ity of tablet 00:00: mouth in [place] 00 the Medical morning. Branch albuterol 2021-05 Yes [id number] 2{puff} Inhale 2 [facility] (PROAIR 1-14 Puffs ity of HFA) 90 00:00: every 4 [place] mcg/actuati 00 (four) Medica l on inhaler hours as Branc h needed for Wheezing or Shortness of Breath. cetirizine 2021-05 Yes [id number] 10mg Take 1 [facility] (ZYRTEC) 10 1-14 tablet by ity of mg tablet 00:00: mouth in [facility] 00 the Medical morning. Branch Fluticasone 2021-05 Yes [id number] Advair [facility] -Salmeterol 1-14 Diskus 500 it y of 500-50 00:00: mcg-50 [place] mcg/dose 00 mcg/dose Medical inhalation powder for [facility] disk inhalation montelukast 2021-05 Yes [id number] 10mg Take 1 [facility] 10 mg 1-14 tablet by ity of tablet 00:00: mouth in [place] 00 the Medical morning. Branch ondansetron 2021-05 Yes [id number] 4mg Take 1 [facility] (ZOFRAN 1-14 tablet by ity of ODT) 4 mg 00:00: mouth [place] disintegrat 00 every 8 Medic al ing tablet (eight) Branch hours as needed for Nausea and Vomiting (N/V). RABEprazole 2021-05 Yes [id number] 20mg Take 1 [facility] 20 mg 1-14 tablet by ity of tablet 00:00: mouth in [place] 00 the Medical morning. Branch estradioL 2 2021-05 Yes [id number] 2mg Take 1 [facility] mg tablet 1-14 tablet by ity o f 00:00: mouth in [place] 00 the Medical morning. Branch cyclobenzap 2021-05 Yes [id number] 10mg Take 1 [facility] rine 10 mg 1-14 tablet by ity of tablet 00:00: mouth 3 [place] 00 (three) Medical times Branch daily as needed for Muscle Spasms. solifenacin 2021-05 Yes [id number] 10mg Take 1 [facility] 10 mg 1-14 tablet by ity of tablet 00:00: mouth in [place] 00 the Medical morning. Branch lisinopriL 2021-05 Yes [id number] 20mg Take 1 U nivers 20 mg 1-14 tablet by ity of tablet 00:00: mouth in [place] 00 the Medical morning. Branch albuterol 2021-05 Yes [id number] 2{puff} Inhale 2 [facility] (PROAIR 1-14 Puffs ity of HFA) 90 00:00: every 4 [place] mcg/actuati 00 (four) Medica l on inhaler hours as Branc h needed for Wheezing or Shortness of Breath. cetirizine 2021-05 Yes [id number] 10mg Take 1 [facility] (ZYRTEC) 10 1-14 tablet by ity of mg tablet 00:00: mouth in [facility] 00 the Medical morning. Branch Fluticasone 2021-05 Yes [id number] Advair [facility] -Salmeterol 1-14 Diskus 500 it y of 500-50 00:00: mcg-50 [place] mcg/dose 00 mcg/dose Medical inhalation powder for [facility] disk inhalation montelukast 2021-05 Yes [id number] 10mg Take 1 [facility] 10 mg 1-14 tablet by ity of tablet 00:00: mouth in [place] 00 the Medical morning. Branch ondansetron 2021-05 Yes [id number] 4mg Take 1 [facility] (ZOFRAN 1-14 tablet by ity of ODT) 4 mg 00:00: mouth [place] disintegrat 00 every 8 Medic al ing tablet (eight) Branch hours as needed for Nausea and Vomiting (N/V). RABEprazole 2021-05 Yes [id number] 20mg Take 1 [facility] 20 mg 1-14 tablet by ity of tablet 00:00: mouth in [place] 00 the Medical morning. Branch estradioL 2 2021-05 Yes [id number] 2mg Take 1 [facility] mg tablet 1-14 tablet by ity o f 00:00: mouth in [place] 00 the Medical morning. Branch cyclobenzap 2021-05 Yes [id number] 10mg Take 1 [facility] rine 10 mg 1-14 tablet by ity of tablet 00:00: mouth 3 [place] [address] (three) Medical times Branch daily as needed for Muscle Spasms. solifenacin 2021-05 Yes [id number] 10mg Take 1 [facility] 10 mg 1-14 tablet by ity of tablet 00:00: mouth in [place] 00 the Medical morning. Branch lisinopriL 2021-05 Yes [id number] 20mg Take 1 [facility] nivers 20 mg 1-14 tablet by ity of tablet 00:00: mouth in [place] 00 the Medical morning. Branch albuterol 2021-05 Yes [id number] 2{puff} Inhale 2 [facility] (PROAIR 1-14 Puffs ity of HFA) 90 00:00: every 4 [place] mcg/actuati 00 (four) Medica l on inhaler hours as Branc h needed for Wheezing or Shortness of Breath. cetirizine 2021-05 Yes [id number] 10mg Take 1 [facility] (ZYRTEC) 10 1-14 tablet by ity of mg tablet 00:00: mouth in [facility] 00 the Medical morning. Branch Fluticasone 2021-05 Yes [id number] Advair [facility] -Salmeterol 1-14 Diskus 500 it y of 500-50 00:00: mcg-50 [place] mcg/dose 00 mcg/dose Medical inhalation powder for [facility] disk inhalation montelukast 2021-05 Yes [id number] 10mg Take 1 [facility] 10 mg 1-14 tablet by ity of tablet 00:00: mouth in [place] 00 the Medical morning. Branch ondansetron 2021-05 Yes [id number] 4mg Take 1 [facility] (ZOFRAN 1-14 tablet by ity of ODT) 4 mg 00:00: mouth [place] disintegrat 00 every 8 Medic al ing tablet (eight) Branch hours as needed for Nausea and Vomiting (N/V). RABEprazole 2021-05 Yes [id number] 20mg Take 1 [facility] 20 mg 1-14 tablet by ity of tablet 00:00: mouth in [place] 00 the Medical morning. Branch estradioL 2 2021-05 Yes [id number] 2mg Take 1 [facility] mg tablet 1-14 tablet by ity o f 00:00: mouth in [place] 00 the Medical morning. Branch cyclobenzap 2021-05 Yes [id number] 10mg Take 1 [facility] rine 10 mg 1-14 tablet by ity of tablet 00:00: mouth 3 [place] 00 (three) Medical times Branch daily as needed for Muscle Spasms. solifenacin 2021-05 Yes [id number] 10mg Take 1 [facility] 10 mg 1-14 tablet by ity of tablet 00:00: mouth in [place] 00 the Medical morning. Branch lisinopriL 2021-05 Yes [id number] 20mg Take 1 [facility] nivers 20 mg 1-14 tablet by ity of tablet 00:00: mouth in [place] 00 the Medical morning. Branch albuterol 2021-05 Yes [id number] 2{puff} Inhale 2 [facility] (PROAIR 1-14 Puffs ity of HFA) 90 00:00: every 4 [place] mcg/actuati 00 (four) Medica l on inhaler hours as Branc h needed for Wheezing or Shortness of Breath. cetirizine 2021-05 Yes [id number] 10mg Take 1 [facility] (ZYRTEC) 10 1-14 tablet by ity of mg tablet 00:00: mouth in [facility] 00 the Medical morning. Branch Fluticasone 2021-05 Yes [id number] Advair [facility] -Salmeterol 1-14 Diskus 500 it y of 500-50 00:00: mcg-50 [place] mcg/dose 00 mcg/dose Medical inhalation powder for [facility] disk inhalation montelukast 2021-05 Yes [id number] 10mg Take 1 [facility] 10 mg 1-14 tablet by ity of tablet 00:00: mouth in [place] 00 the Medical morning. Branch ondansetron 2021-05 Yes [id number] 4mg Take 1 [facility] (ZOFRAN 1-14 tablet by ity of ODT) 4 mg 00:00: mouth [place] disintegrat 00 every 8 Medic al ing tablet (eight) Branch hours as needed for Nausea and Vomiting (N/V). RABEprazole 2021-05 Yes [id number] 20mg Take 1 [facility] 20 mg 1-14 tablet by ity of tablet 00:00: mouth in [place] 00 the Medical morning. Branch estradioL 2 2021-05 Yes [id number] 2mg Take 1 [facility] mg tablet 1-14 tablet by ity o f 00:00: mouth in [place] 00 the Medical morning. Branch cyclobenzap 2021-05 Yes [id number] 10mg Take 1 [facility] rine 10 mg 1-14 tablet by ity of tablet 00:00: mouth 3 [place] 00 (three) Medical times Branch daily as needed for Muscle Spasms. solifenacin 2021-05 Yes [id number] 10mg Take 1 [facility] 10 mg 1-14 tablet by ity of tablet 00:00: mouth in [place] 00 the Medical morning. Branch lisinopriL 2021-05 Yes [id number] 20mg Take 1 [facility] nivers 20 mg 1-14 tablet by ity of tablet 00:00: mouth in [place] 00 the Medical morning. Branch albuterol 2021-05 Yes [id number] 2{puff} Inhale 2 [facility] (PROAIR 1-14 Puffs ity of HFA) 90 00:00: every 4 [place] mcg/actuati 00 (four) Medica l on inhaler hours as Branc h needed for Wheezing or Shortness of Breath. cetirizine 2021-05 Yes [id number] 10mg Take 1 [facility] (ZYRTEC) 10 1-14 tablet by ity of mg tablet 00:00: mouth in [facility] 00 the Medical morning. Branch Fluticasone 2021-05 Yes [id number] Advair [facility] -Salmeterol 1-14 Diskus 500 it y of 500-50 00:00: mcg-50 [place] mcg/dose 00 mcg/dose Medical inhalation powder for [facility] disk inhalation montelukast 2021-05 Yes [id number] 10mg Take 1 [facility] 10 mg 1-14 tablet by ity of tablet 00:00: mouth in [place] 00 the Medical morning. Branch ondansetron 2021-05 Yes [id number] 4mg Take 1 [facility] (ZOFRAN 1-14 tablet by ity of ODT) 4 mg 00:00: mouth [place] disintegrat 00 every 8 Medic al ing tablet (eight) Branch hours as needed for Nausea and Vomiting (N/V). RABEprazole 2021-05 Yes [id number] 20mg Take 1 [facility] 20 mg 1-14 tablet by ity of tablet 00:00: mouth in [place] 00 the Medical morning. Branch estradioL 2 2021-05 Yes [id number] 2mg Take 1 [facility] mg tablet 1-14 tablet by ity o f 00:00: mouth in [place] 00 the Medical morning. Branch cyclobenzap 2021-05 Yes [id number] 10mg Take 1 [facility] rine 10 mg 1-14 tablet by ity of tablet 00:00: mouth 3 [place] [address] (three) Medical times Branch daily as needed for Muscle Spasms. solifenacin 2021-05 Yes [id number] 10mg Take 1 [facility] 10 mg 1-14 tablet by ity of tablet 00:00: mouth in [place] 00 the Medical morning. Branch lisinopriL 2021-05 Yes [id number] 20mg Take 1 U nivers 20 mg 1-14 tablet by ity of tablet 00:00: mouth in [place] 00 the Medical morning. Branch albuterol 2021-05 Yes [id number] 2{puff} Inhale 2 [facility] (PROAIR 1-14 Puffs ity of HFA) 90 00:00: every 4 [place] mcg/actuati 00 (four) Medica l on inhaler hours as Branc h needed for Wheezing or Shortness of Breath. cetirizine 2021-05 Yes [id number] 10mg Take 1 [facility] (ZYRTEC) 10 1-14 tablet by ity of mg tablet 00:00: mouth in [facility] 00 the Medical morning. Branch Fluticasone 2021-05 Yes [id number] Advair [facility] -Salmeterol 1-14 Diskus 500 it y of 500-50 00:00: mcg-50 [place] mcg/dose 00 mcg/dose Medical inhalation powder for [facility] disk inhalation montelukast 2021-05 Yes [id number] 10mg Take 1 [facility] 10 mg 1-14 tablet by ity of tablet 00:00: mouth in [place] 00 the Medical morning. Branch ondansetron 2021-05 Yes [id number] 4mg Take 1 [facility] (ZOFRAN 1-14 tablet by ity of ODT) 4 mg 00:00: mouth [place] disintegrat 00 every 8 Medic al ing tablet (eight) Branch hours as needed for Nausea and Vomiting (N/V). RABEprazole 2021-05 Yes [id number] 20mg Take 1 [facility] 20 mg 1-14 tablet by ity of tablet 00:00: mouth in [place] 00 the Medical morning. Branch estradioL 2 2021-05 Yes [id number] 2mg Take 1 [facility] mg tablet 1-14 tablet by ity o f 00:00: mouth in [place] 00 the Medical morning. Branch cyclobenzap 2021-05 Yes [id number] 10mg Take 1 [facility] rine 10 mg 1-14 tablet by ity of tablet 00:00: mouth 3 [place] [address] (three) Medical times Branch daily as needed for Muscle Spasms. solifenacin 2021-05 Yes [id number] 10mg Take 1 [facility] 10 mg 1-14 tablet by ity of tablet 00:00: mouth in [place] 00 the Medical morning. Branch lisinopriL 2021-05 Yes [id number] 20mg Take 1 U nivers 20 mg 1-14 tablet by ity of tablet 00:00: mouth in [place] 00 the Medical morning. Branch albuterol 2021-05 Yes [id number] 2{puff} Inhale 2 [facility] (PROAIR 1-14 Puffs ity of HFA) 90 00:00: every 4 [place] mcg/actuati 00 (four) Medica l on inhaler hours as Branc h needed for Wheezing or Shortness of Breath. cetirizine 2021-05 Yes [id number] 10mg Take 1 [facility] (ZYRTEC) 10 1-14 tablet by ity of mg tablet 00:00: mouth in [facility] 00 the Medical morning. Branch montelukast 2021-05 Yes [id number] 10mg Take 1 [facility] 10 mg 1-14 tablet by ity of tablet 00:00: mouth in [place] 00 the Medical morning. Branch ondansetron 2021-05 Yes [id number] 4mg Take 1 [facility] (ZOFRAN 1-14 tablet by ity of ODT) 4 mg 00:00: mouth [place] disintegrat 00 every 8 Medic al ing tablet (eight) Branch hours as needed for Nausea and Vomiting (N/V). RABEprazole 2021-05 Yes [id number] 20mg Take 1 [facility] 20 mg 1-14 tablet by ity of tablet 00:00: mouth in [place] 00 the Medical morning. Branch estradioL 2 2021-05 Yes [id number] 2mg Take 1 [facility] mg tablet 1-14 tablet by ity o f 00:00: mouth in [place] 00 the Medical morning. Branch solifenacin 2021-05 Yes [id number] 10mg Take 1 [facility] 10 mg 1-14 tablet by ity of tablet 00:00: mouth in [place] 00 the Medical morning. Branch lisinopriL 2021-05 Yes [id number] 20mg Take 1 U nivers 20 mg 1-14 tablet by ity of tablet 00:00: mouth in [place] 00 the Medical morning. Branch albuterol 2021-05 Yes [id number] 2{puff} Inhale 2 [facility] (PROAIR 1-14 Puffs ity of HFA) 90 00:00: every 4 [place] mcg/actuati 00 (four) Medica l on inhaler hours as Branc h needed for Wheezing or Shortness of Breath. cetirizine 2021-05 Yes [id number] 10mg Take 1 [facility] (ZYRTEC) 10 1-14 tablet by ity of mg tablet 00:00: [place] 00 the Medical morning. Branch montelukast 2021-05 Yes [id number] 10mg Take 1 [facility] 10 mg 1-14 tablet by ity of tablet 00:00: mouth in [place] 00 the Medical morning. Branch ondansetron 2021-05 Yes [id number] 4mg Take 1 [facility] (ZOFRAN 1-14 tablet by ity of ODT) 4 mg 00:00: mouth [place] disintegrat 00 every 8 Medic al ing tablet (eight) Branch hours as needed for Nausea and Vomiting (N/V). RABEprazole 2021-05 Yes [id number] 20mg Take 1 [facility] 20 mg 1-14 tablet by ity of tablet 00:00: mouth in [place] 00 the Medical morning. Branch estradioL 2 2021-05 Yes [id number] 2mg Take 1 [facility] mg tablet 1-14 tablet by ity o f 00:00: mouth in [place] 00 the Medical morning. Branch solifenacin 2021-05 Yes [id number] 10mg Take 1 [facility] 10 mg 1-14 tablet by ity of tablet 00:00: mouth in [place] 00 the Medical morning. Branch lisinopriL 2021-05 Yes [id number] 20mg Take 1 U nivers 20 mg 1-14 tablet by ity of tablet 00:00: mouth in [place] 00 the Medical morning. Branch albuterol 2021-05 Yes [id number] 2{puff} Inhale 2 [facility] (PROAIR 1-14 Puffs ity of HFA) 90 00:00: every 4 [place] mcg/actuati 00 (four) Medica l on inhaler hours as Branc h needed for Wheezing or Shortness of Breath. cetirizine 2021-05 Yes [id number] 10mg Take 1 [facility] (ZYRTEC) 10 1-14 tablet by ity of mg tablet 00:00: mouth in [facility] 00 the Medical morning. Branch montelukast 2021-05 Yes [id number] 10mg Take 1 [facility] 10 mg 1-14 tablet by ity of tablet 00:00: mouth in [place] the Medical morning. Branch ondansetron 2021-05 Yes [id number] 4mg Take 1 [facility] (ZOFRAN 1-14 tablet by ity of ODT) 4 mg 00:00: mouth [place] disintegrat 00 every 8 Medic al ing tablet (eight) Branch hours as needed for Nausea and Vomiting (N/V). RABEprazole 2021-05 Yes [id number] 20mg Take 1 [facility] 20 mg 1-14 tablet by ity of tablet 00:00: mouth in [place] 00 the Medical morning. Branch estradioL 2 2021-05 Yes [id number] 2mg Take 1 [facility] mg tablet 1-14 tablet by ity o f 00:00: mouth in [place] 00 the Medical morning. Branch solifenacin 2021-05 Yes [id number] 10mg Take 1 [facility] 10 mg 1-14 tablet by ity of tablet 00:00: mouth in [place] 00 the Medical morning. Branch lisinopriL 2021-05 Yes [id number] 20mg Take 1 U nivers 20 mg 1-14 tablet by ity of tablet 00:00: mouth in [place] 00 the Medical morning. Branch albuterol 2021-05 Yes [id number] 2{puff} Inhale 2 [facility] (PROAIR 1-14 Puffs ity of HFA) 90 00:00: every 4 [place] mcg/actuati 00 (four) Medica l on inhaler hours as Branc h needed for Wheezing or Shortness of Breath. cetirizine 2021-05 Yes [id number] 10mg Take 1 [facility] (ZYRTEC) 10 1-14 tablet by ity of mg tablet 00:00: mouth in [facility] 00 the Medical morning. Branch montelukast 2021-05 Yes [id number] 10mg Take 1 [facility] 10 mg 1-14 tablet by ity of tablet 00:00: mouth in [place] 00 the Medical morning. Branch ondansetron 2021-05 Yes [id number] 4mg Take 1 [facility] (ZOFRAN 1-14 tablet by ity of ODT) 4 mg 00:00: mouth [place] disintegrat 00 every 8 Medic al ing tablet (eight) Branch hours as needed for Nausea and Vomiting (N/V). RABEprazole 2021-05 Yes [id number] 20mg Take 1 [facility] 20 mg 1-14 tablet by ity of tablet 00:00: mouth in [place] 00 the Medical morning. Branch estradioL 2 2021-05 Yes [id number] 2mg Take 1 [facility] mg tablet 1-14 tablet by ity o f 00:00: mouth in [place] 00 the Medical morning. Branch solifenacin 2021-05 Yes [id number] 10mg Take 1 [facility] 10 mg 1-14 tablet by ity of tablet 00:00: mouth in [place] 00 the Medical morning. Branch lisinopriL 2021-05 Yes [id number] 20mg Take 1 U nivers 20 mg 1-14 tablet by ity of tablet 00:00: mouth in [place] 00 the Medical morning. Branch albuterol 2021-05 Yes [id number] 2{puff} Inhale 2 [facility] (PROAIR 1-14 Puffs ity of HFA) 90 00:00: every 4 [place] mcg/actuati 00 (four) Medica l on inhaler hours as Branc h needed for Wheezing or Shortness of Breath. cetirizine 2021-05 Yes [id number] 10mg Take 1 [facility] (ZYRTEC) 10 1-14 tablet by ity of mg tablet 00:00: mouth in [facility] 00 the Medical morning. Branch montelukast 2021-05 Yes [id number] 10mg Take 1 [facility] 10 mg 1-14 tablet by ity of tablet 00:00: mouth in [place] 00 the Medical morning. Branch ondansetron 2021-05 Yes [id number] 4mg Take 1 [facility] (ZOFRAN 1-14 tablet by ity of ODT) 4 mg 00:00: mouth [place] disintegrat 00 every 8 Medic al ing tablet (eight) Branch hours as needed for Nausea and Vomiting (N/V). RABEprazole 2021-05 Yes [id number] 20mg Take 1 [facility] 20 mg 1-14 tablet by ity of tablet 00:00: mouth in [place] 00 the Medical morning. Branch estradioL 2 2021-05 Yes [id number] 2mg Take 1 [facility] mg tablet 1-14 tablet by ity o f 00:00: mouth in [place] 00 the Medical morning. Branch solifenacin 2021-05 Yes [id number] 10mg Take 1 [facility] 10 mg 1-14 tablet by ity of tablet 00:00: mouth in [place] 00 the Medical morning. Branch lisinopriL 2021-05 Yes [id number] 20mg Take 1 U nivers 20 mg 1-14 tablet by ity of tablet 00:00: mouth in [place] 00 the Medical morning. Branch Fluticasone 2021-05- No [id number] Advair [facility] -Salmeterol 05-28 Diskus 500 i ty of 500-50 00:00: 00:00 mcg-50 [place] mcg/dose 00 :00 mcg/dose Medical inhalation powder for [facility] disk inhalation cyclobenzap 2021-05- No [id number] 10mg Take 1 [facility] rine 10 mg 1-14 06-22 tablet by ity of tablet 00:00: 00:00 mouth 3 [place] 00 :00 (three) Medical times Branch daily as needed for Muscle Spasms. Fluticasone 2021-05- No [id number] Advair [facility] -Salmeterol -14 06-22 Diskus 500 i ty of 500-50 00:00: 00:00 mcg-50 [place] mcg/dose 00 :00 mcg/dose Medical inhalation powder for [facility] disk inhalation cyclobenzap 2021-05- No [id number] 10mg Take 1 [facility] rine 10 mg 1-14 08 tablet by ity of tablet 00:00: 00:00 mouth 3 [place] 00 :00 (three) Medical times Branch daily as needed for Muscle Spasms. DULoxetine 2021-05 Yes 30mg Take 1 Unive rs 30 mg 0-18 capsule by ity of capsule 00:00: mouth in [place] 00 the Medical morning Branch and 1 capsule in the evening. DULoxetine 2021-05 Yes 30mg Take 1 Unive rs 30 mg 0-18 capsule by ity of capsule 00:00: mouth in [place] 00 the Medical morning Branch and 1 capsule in the evening. DULoxetine 2021- Yes 30mg Take 1 Unive rs 30 mg 0-18 capsule by ity of capsule 00:00: mouth in [place] 00 the Medical morning Branch and 1 capsule in the evening. DULoxetine 2021-05 Yes 30mg Take 1 Unive rs 30 mg 0-18 capsule by ity of capsule 00:00: mouth in [place] [address] the Medical morning Branch and 1 capsule in the evening. DULoxetine 2021-05 Yes 30mg Take 1 Unive rs 30 mg 0-18 capsule by ity of capsule 00:00: mouth in [place] [address] the Medical morning Branch and 1 capsule in the evening. DULoxetine 2021-05 Yes 30mg Take 1 Unive rs 30 mg 0-18 capsule by ity of capsule 00:00: mouth in [place] 00 the Medical morning Branch and 1 capsule in the evening. DULoxetine 2021-05 Yes 30mg Take 1 Unive rs 30 mg 0-18 capsule by ity of capsule 00:00: mouth in [place] 00 the Medical morning Branch and 1 capsule in the evening. DULoxetine 2021- Yes 30mg Take 1 Unive rs 30 mg 0-18 capsule by ity of capsule 00:00: mouth in [place] 00 the Medical morning Branch and 1 capsule in the evening. DULoxetine 2021-1 Yes 30mg Take 1 Unive rs 30 mg 0-18 capsule by ity of capsule 00:00: mouth in [place] [address] the Medical morning Branch and 1 capsule in the evening. DULoxetine 2021- Yes 30mg Take 1 Unive rs 30 mg 0-18 capsule by ity of capsule 00:00: mouth in [place] [address] the Medical morning Branch and 1 capsule in the evening. DULoxetine 2021- Yes 30mg Take 1 Unive rs 30 mg 0-18 capsule by ity of capsule 00:00: mouth in [place] 00 the Medical morning Branch and 1 capsule in the evening. DULoxetine 2021-05 Yes 30mg Take 1 Unive rs 30 mg 0-18 capsule by ity of capsule 00:00: mouth in [place] 00 the Medical morning Branch and 1 capsule in the evening. DULoxetine 2021-05 Yes 30mg Take 1 Unive rs 30 mg 0-18 capsule by ity of capsule 00:00: mouth in [place] 00 the Medical morning Branch and 1 capsule in the evening. DULoxetine 2021-05 Yes 30mg Take 1 Unive rs 30 mg 0-18 capsule by ity of capsule 00:00: mouth in [place] [address] the Medical morning Branch and 1 capsule in the evening. DULoxetine 2021-05 Yes 30mg Take 1 Unive rs 30 mg 0-18 capsule by ity of capsule 00:00: mouth in [place] [address] the Medical morning Branch and 1 capsule in the evening. DULoxetine 2021-05 Yes 30mg Take 1 Unive rs 30 mg 0-18 capsule by ity of capsule 00:00: mouth in [place] [address] the Medical morning Branch and 1 capsule in the evening. DULoxetine 2021-05 Yes 30mg Take 1 Unive rs 30 mg 0-18 capsule by ity of capsule 00:00: mouth in [place] [address] the Medical morning Branch and 1 capsule in the evening. DULoxetine 2021-05- No 30mg Take 1 Univ ers 30 mg 0-18 02-08 capsule by ity of capsule 00:00: 00:00 mouth in [place] 00 :00 the Medical morning Branch and 1 capsule in the evening. DULoxetine 2021-05- No 30mg Take 1 Univ ers 30 mg 0-18 02-08 capsule by ity of capsule 00:00: 00:00 mouth in [place] 00 :00 the Medical morning Branch and 1 capsule in the evening. lidocaine 2021- No [id number] 10mL Uni vers 1% (PF) 12-17-05 ity of (XYLOCAINE) 20:30: 19:29 [place] injection 00 :00 Medical 10 mL Branch iohexoL 2021- No [id number] 3mL Unive rs (OMNIPAQUE 12-17-05 ity of 300-50 mL)) 20:30: 19:33 [place] injection 3 00 :00 Medical mL Branch triamcinolo 0 2021- No [id number] 80mg U nivers ne 12-17 ity of acetonide 20:30: 19:35 [place] (KENALOG) 00 :00 Medical injection Branch 80 mg bupivacaine 2021- No [id number] 4mL U nivers (preserv 12-17 ity of free) 20:30: 19:30 [place] (SENSORCAIN 00 :00 Medical E MPF) 0.25 Branch % (2.5 mg/mL) injection 4 mL bupivacaine No [id number] 4mL 4 mL, Univers (preserv 12-17 Infiltrati ity of free) 20:30: 19:30 on, ONCE, [place] (SENSORCAIN 00 :00 1 dose, On Me dical E MPF) 0.25 12/17/21 Br anch % (2.5 at 1530, mg/mL) Routine injection 4 mL triamcinolo No [id number] 80mg 80 mg, Univers ne 12-17 Infiltrati ity of acetonide 20:30: 19:35 [place] (KENALOG[place] 00 :00 1 dose, On Medi mike injection 12/17/21 Bran ch 80 mg at 1530, Routine iohexoL No [id number] 3mL 3 mL, Univ ers (OMNIPAQUE 12-17 Injection, it y of 300-50 mL)) 20:30: 19:33 [place]CE, 1 [place] injection 3 00 :00 dose, On Medi mike mL 12/17/21 Branch at 1530, Routine lidocaine 2021-2021- No [id number] 10mL 10 mL, U nivers 1% (PF) 12-17 Infiltrati ity o f (XYLOCAINE) 20:30: 19:29 on, ONCE, [place] injection 00 :00 1 dose, On Medi mike 10 mL 12/17/21 Branch at 1530, Routine lidocaine 2021-0 2021- No [id number] 10mL Uni vers 1% (PF) 12-17 ity of (XYLOCAINE) 20:30: 19:29 [place] injection 00 :00 Medical 10 mL Branch iohexoL 2021- No [id number] 3mL Unive rs (OMNIPAQUE 12-17 ity of 300-50 mL)) 20:30: 19:33 [place] injection 3 00 :00 Medical mL Branch triamcinolo 2021- No [id number] 80mg U nivers ne 12-17 ity of acetonide 20:30: 19:35 [place] (KENALOG) 00 :00 Medical injection Branch 80 mg bupivacaine No [id number] 4mL U nivers (preserv 12-17 ity of free) 20:30: 19:30 [place] (SENSORCAIN 00 :00 Medical E MPF) 0.25 Branch % (2.5 mg/mL) injection 4 mL bupivacaine No [id number] 4mL 4 mL, Univers (preserv 12-17 Infiltrati ity of free) 20:30: 19:30 on, ONCE, [place] (SENSORCAIN 00 :00 1 dose, On Me dical E MPF) 0.25 12/17/21 Br anch % (2.5 at 1530, mg/mL) Routine injection 4 mL triamcinolo No [id number] 80mg 80 mg, Univers ne 12-17 Infiltrati ity of acetonide 20:30: 19:35 [place]CE, [place] (KENALOG) 00 :00 1 dose, On Medi mike injection 12/17/21 Bran ch 80 mg at 1530, Routine iohexoL No [id number] 3mL 3 mL, Univ ers (OMNIPAQUE 12-17 Injection, it y of 300-50 mL)) 20:30: 19:33 [place]CE, 1 [place] injection 3 00 :00 dose, On Medi mike mL 12/17/21 Branch at 1530, Routine lidocaine 2021- No [id number] 10mL 10 mL, U nivers 1% (PF) 12-17 Infiltrati ity o f (XYLOCAINE) 20:30: 19:29 on, ONCE, [place] injection 00 :00 1 dose, On Medi mike 10 mL 12/17/21 Branch at 1530, Routine lactated 2021- No [id number] 500mL Uni vers ringers IV - 08-05 ity of infusion 19:00: 18:40 [place] 500 mL 00 :00 Medical Branch lactated 2021- No [id number] 500mL at 20 Un nemo ringers IV - 08-05 mL/hr, 500 it y of infusion 19:00: 18:40 mL, IV [place] 500 mL 00 :00 Infusion, Medical ONCE, 1 Branch dose, On Mon12/17/21 at 1400, Routine lactated 2021- No [id number] 500mL Uni vers ringers IV 12-17 08-05 ity of infusion 19:00: 18:40 [place] 500 mL 00 :00 Medical Branch lactated 2021- No [id number] 500mL at 20 Un nemo ringers IV 12-17 08-05 mL/hr, 500 it y of infusion 19:00: 18:40 mL, IV [place] 500 mL 00 :00 Infusion, Medical ONCE, 1 Branch dose, On Mon12/17/21 at 1400, Routine atogepant 2022- No 1 tablet Uni vers (QULIPTA) 11-2908 ity of 60 mg Tab 00:00: 00:00 [place] 00 :00 Medical Branch atogepant 2022- No 1 tablet Uni vers (QULIPTA) 11-2908 ity of 60 mg Tab 00:00: 00:00 [place] 00 :00 Medical Branch DULoxetine 2021- Yes [id number] 30mg Take 1 [facility] (CYMBALTA) 6-22 capsule by ity of 30 mg 00:00: mouth 2 [place] capsule 00 (two) Medical times Branch daily. pregabalin 2021-0 Yes [id number] 150mg Take 1 [facility] 150 mg 6-22 capsule by ity of capsule 00:00: mouth 3 [place] 00 (three) Medical times Branch daily. DULoxetine 2021-0 Yes [id number] 30mg Take 1 [facility] (CYMBALTA) 6-22 capsule by ity of 30 mg 00:00: mouth 2 [place] capsule 00 (two) Medical times Branch daily. pregabalin 2021-0 Yes [id number] 150mg Take 1 [facility] 150 mg 6-22 capsule by ity of capsule 00:00: mouth 3 [place] 00 (three) Medical times Branch daily. DULoxetine 2022-0 Yes [id number] 30mg Take 1 [facility] (CYMBALTA) 6-22 capsule by ity of 30 mg 00:00: mouth 2 [place] capsule 00 (two) Medical times Branch daily. pregabalin 2022-0 Yes [id number] 150mg Take 1 [facility] 150 mg 6-22 capsule by ity of capsule 00:00: mouth 3 (three) Medical times Branch daily. DULoxetine 2022-0 Yes [id number] 30mg Take 1 [facility] (CYMBALTA) 6-22 capsule by ity of 30 mg 00:00: mouth 2 [place] capsule 00 (two) Medical times Branch daily. pregabalin 2022-0 Yes [id number] 150mg Take 1 [facility] 150 mg 6-22 capsule by ity of capsule 00:00: mouth 3 (three) Medical times Branch daily. DULoxetine 2022-0 Yes [id number] 30mg Take 1 [facility] (CYMBALTA) 6-22 capsule by ity of 30 mg 00:00: mouth 2 [place] capsule 00 (two) Medical times Branch daily. pregabalin 2022-0 Yes [id number] 150mg Take 1 [facility] 150 mg 6-22 capsule by ity of capsule 00:00: mouth 3 (three) Medical times Branch daily. DULoxetine 2022-0 Yes [id number] 30mg Take 1 [facility] (CYMBALTA) 6-22 capsule by ity of 30 mg 00:00: mouth 2 [place] capsule 00 (two) Medical times Branch daily. pregabalin 2022-0 Yes [id number] 150mg Take 1 [facility] 150 mg 6-22 capsule by ity of capsule 00:00: mouth 3 (three) Medical times Branch daily. DULoxetine 2022-0 Yes [id number] 30mg Take 1 [facility] (CYMBALTA) 6-22 capsule by ity of 30 mg 00:00: mouth 2 [place] capsule 00 (two) Medical times Branch daily. pregabalin 2022-0 Yes [id number] 150mg Take 1 [facility] 150 mg 6-22 capsule by ity of capsule 00:00: mouth 3 [place] 00 (three) Medical times Branch daily. DULoxetine 2022-0 Yes [id number] 30mg Take 1 [facility] (CYMBALTA) 6-22 capsule by ity of 30 mg 00:00: mouth 2 [place] capsule 00 (two) Medical times Branch daily. pregabalin 2022-0 Yes [id number] 150mg Take 1 [facility] 150 mg 6-22 capsule by ity of capsule 00:00: mouth 3 [place] 00 (three) Medical times Branch daily. DULoxetine 2022-0 Yes [id number] 30mg Take 1 [facility] (CYMBALTA) 6-22 capsule by ity of 30 mg 00:00: mouth 2 [place] capsule 00 (two) Medical times Branch daily. pregabalin 2022-0 Yes [id number] 150mg Take 1 [facility] 150 mg 6-22 capsule by ity of capsule 00:00: mouth 3 [place] 00 (three) Medical times Branch daily. DULoxetine 2022-0 Yes [id number] 30mg Take 1 [facility] (CYMBALTA) 6-22 capsule by ity of 30 mg 00:00: mouth 2 [place] capsule 00 (two) Medical times Branch daily. pregabalin 2022-0 Yes [id number] 150mg Take 1 [facility] 150 mg 6-22 capsule by ity of capsule 00:00: mouth 3 (three) Medical times Branch daily. DULoxetine 2022-0 Yes [id number] 30mg Take 1 [facility] (CYMBALTA) 6-22 capsule by ity of 30 mg 00:00: mouth 2 [place] capsule 00 (two) Medical times Branch daily. pregabalin 2022-0 Yes [id number] 150mg Take 1 [facility] 150 mg 6-22 capsule by ity of capsule 00:00: mouth 3 (three) Medical times Branch daily. DULoxetine 2022-0 Yes [id number] 30mg Take 1 [facility] (CYMBALTA) 6-22 capsule by ity of 30 mg 00:00: mouth 2 [place] capsule 00 (two) Medical times Branch daily. pregabalin 2022-0 Yes [id number] 150mg Take 1 [facility] 150 mg 6-22 capsule by ity of capsule 00:00: mouth 3 [place] 00 (three) Medical times Branch daily. DULoxetine 2022-0 Yes [id number] 30mg Take 1 [facility] (CYMBALTA) 6-22 capsule by ity of 30 mg 00:00: mouth 2 [place] capsule 00 (two) Medical times Branch daily. pregabalin 2022-0 Yes [id number] 150mg Take 1 [facility] 150 mg 6-22 capsule by ity of capsule 00:00: mouth 3 (three) Medical times Branch daily. DULoxetine 2022-0 Yes [id number] 30mg Take 1 [facility] (CYMBALTA) 6-22 capsule by ity of 30 mg 00:00: mouth 2 [place] capsule 00 (two) Medical times Branch daily. pregabalin 2022-0 Yes [id number] 150mg Take 1 [facility] 150 mg 6-22 capsule by ity of capsule 00:00: mouth 3 [place] 00 (three) Medical times Branch daily. DULoxetine 2022-0 Yes [id number] 30mg Take 1 [facility] (CYMBALTA) 6-22 capsule by ity of 30 mg 00:00: mouth 2 [place] capsule 00 (two) Medical times Branch daily. pregabalin 2022-0 Yes [id number] 150mg Take 1 [facility] 150 mg 6-22 capsule by ity of capsule 00:00: mouth 3 (three) Medical times Branch daily. DULoxetine 2022-0 Yes [id number] 30mg Take 1 [facility] (CYMBALTA) 6-22 capsule by ity of 30 mg 00:00: mouth 2 [place] capsule 00 (two) Medical times Branch daily. pregabalin 2022-0 Yes [id number] 150mg Take 1 [facility] 150 mg 6-22 capsule by ity of capsule 00:00: mouth 3 (three) Medical times Branch daily. DULoxetine 2022-0 Yes [id number] 30mg Take 1 [facility] (CYMBALTA) 6-22 capsule by ity of 30 mg 00:00: mouth 2 [place] capsule 00 (two) Medical times Branch daily. pregabalin 2022-0 Yes [id number] 150mg Take 1 [facility] 150 mg 6-22 capsule by ity of capsule 00:00: mouth 3 (three) Medical times Branch daily. DULoxetine 2022-0 Yes [id number] 30mg Take 1 [facility] (CYMBALTA) 6-22 capsule by ity of 30 mg 00:00: mouth 2 [place] capsule 00 (two) Medical times Branch daily. pregabalin 2022-0 Yes [id number] 150mg Take 1 [facility] 150 mg 6-22 capsule by ity of capsule 00:00: mouth 3 (three) Medical times Branch daily. DULoxetine 2022-0 Yes [id number] 30mg Take 1 [facility] (CYMBALTA) 6-22 capsule by ity of 30 mg 00:00: mouth 2 [place] capsule 00 (two) Medical times Branch daily. pregabalin 2022-0 Yes [id number] 150mg Take 1 [facility] 150 mg 6-22 capsule by ity of capsule 00:00: mouth 3 [place] 00 (three) Medical times Branch daily. DULoxetine 2-0 Yes [id number] 30mg Take 1 [facility] (CYMBALTA) 6-22 capsule by ity of 30 mg 00:00: mouth 2 [place] capsule 00 (two) Medical times Branch daily. pregabalin 2021-0 Yes [id number] 150mg Take 1 [facility] 150 mg 6-22 capsule by ity of capsule 00:00: mouth 3 [place] 00 (three) Medical times Branch daily. DULoxetine 2-0 Yes [id number] 30mg Take 1 [facility] (CYMBALTA) 6-22 capsule by ity of 30 mg 00:00: mouth 2 [place] capsule 00 (two) Medical times Branch daily. pregabalin 2021-0 Yes [id number] 150mg Take 1 [facility] 150 mg 6-22 capsule by ity of capsule 00:00: mouth 3 [place] 00 (three) Medical times Branch daily. DULoxetine 2-0 3- No [id number] 30mg Take 1 [facility] (CYMBALTA) 6-22 02-08 capsule by it y of 30 mg 00:00: 00:00 mouth 2 [place] capsule 00 :00 (two) Medical times Branch daily. pregabalin 2021-0 3- No [id number] 150mg Take 1 [facility] 150 mg 6-22 02-08 capsule by ity of capsule 00:00: 00:00 mouth 3 [place] 00 :00 (three) Medical times Branch daily. DULoxetine 2022-0 3- No [id number] 30mg Take 1 [facility] (CYMBALTA) 6-22 02-08 capsule by it y of 30 mg 00:00: 00:00 mouth 2 [place] capsule 00 :00 (two) Medical times Branch daily. pregabalin 2022-0 3- No [id number] 150mg Take 1 [facility] 150 mg 6-22 02-08 capsule by ity of capsule 00:00: 00:00 mouth 3 [place] 00 :00 (three) Medical times Branch daily. pregabalin 2022-0 2023- No 2 capsules [facility] (LYRICA) 75 2-18 02-08 ity of mg capsule 00:00: 00:00 [place] 00 :00 Medical Branch pregabalin 2021-2022- No 2 capsules [facility] (LYRICA) 75 2-18 -08 ity of mg capsule 00:00: 00:00 [place] 00 :00 Medical Branch traMADoL 50 2020-0 Yes [id number] 50mg Take 1 [facility] ers mg tablet 3-11 tablet by ity o f 00:00: mouth [place] 00 every 4 Medical (four) Branch hours as needed for Pain (scale 7-10). Indication s: acute pain traMADoL 50 2020-0 Yes [id number] 50mg Take 1 [facility] ers mg tablet 3-11 tablet by ity o f 00:00: mouth [place] 00 every 4 Medical (four) Branch hours as needed for Pain (scale 7-10). Indication s: acute pain traMADoL 50 2020-0 Yes [id number] 50mg Take 1 [facility] ers mg tablet 3-11 tablet by ity o f 00:00: mouth [place] 00 every 4 Medical (four) Branch hours as needed for Pain (scale 7-10). Indication s: acute pain traMADoL 50 2020-0 Yes [id number] 50mg Take 1 [facility] ers mg tablet 3-11 tablet by ity o f 00:00: mouth [place] 00 every 4 Medical (four) Branch hours as needed for Pain (scale 7-10). Indication s: acute pain traMADoL 50 2020-0 2021- No 4647 50mg Take 1 [facility] vers mg tablet 3-11 11-14 tablet by ity of 00:00: 00:00 mouth [place] 00 :00 every 4 Medical (four) Branch hours as needed for Pain (scale 7-10). Indication s: acute pain traMADoL 50 2020-0 2021- No 4647 50mg Take 1 [facility] vers mg tablet 3-11 11-14 tablet by ity of 00:00: 00:00 mouth [place] 00 :00 every 4 Medical (four) Branch hours as needed for Pain (scale 7-10). Indication s: acute pain traMADoL 50 2020-0 2021- No 4647 50mg Take 1 [facility] vers mg tablet 3-11 11-14 tablet by ity of 00:00: 00:00 mouth [place] 00 :00 every 4 Medical (four) Branch hours as needed for Pain (scale 7-10). Indication s: acute pain traMADoL 50 2021- No 4647 50mg Take 1 [facility] vers mg tablet 07-23 11-14 tablet by ity of 00:00: 00:00 mouth [place] 00 :00 every 4 Medical (four) Branch hours as needed for Pain (scale 7-10). Indication s: acute pain ranitidine Yes [id number] 300mg Take 300 [facility] 300 mg 3-01 mg by ity of tablet 12:56: mouth [place] 03 daily. Medical Branch estradiol 2 Yes [id number] 2mg Take 2 mg [facility] mg tablet 3-01 by mouth ity of 12:56: daily. [place] [address] Medical Branch montelukast Yes [id number] 10mg Take 10 mg [facility] 10 mg 3-01 by mouth ity of tablet 12:56: daily. [place] [address] Medical Branch cetirizine Yes [id number] 10mg Take 10 mg [facility] (ZYRTEC) 10 3-01 by mouth ity of mg tablet 12:56: daily. [place] [address] Medical Branch ondansetron Yes [id number] 4mg Take 4 mg [facility] (ZOFRAN 3-01 by mouth ity of ODT) 4 mg 12:56: every 8 [place] disintegrat 03 (eight) Medic al ing tablet hours as Branc h needed. omeprazole Yes [id number] 40mg Take 40 mg [facility] (PRILOSEC) 3-01 by mouth 2 ity of 40 mg 12:56: (two) [place] capsule 03 times Medical daily. Branch acetaminoph Yes acetaminop [facility] en-codeine 3- hen 300 ity of 300-30 mg 12:56: mg-codeine [place] tablet 03 30 mg Medical tablet Branch TAKE 1-2 TABLETS BY MOUTH EVERY 6 HOURS NEEDED FOR PAIN Fluticasone Yes Advair [facility] ers -Salmeterol 3 Diskus 500 it y of 500-50 12:56: mcg-50 [place] mcg/dose 03 mcg/dose Medical inhalation powder for Bra nch disk inhalation Cranberry Yes by NOT [facility] 400 mg Cap 3 APPLICABLE ity of 12:56: route. [place] [address] Medical Branch docusate Yes 100mg Take 100 [facility] ers 100 mg 3-01 mg by ity of capsule 12:56: mouth. [place] [facility] fluticasone Yes 2{spray Use 2 Un nemo 50 3-01 } Sprays in ity of mcg/actuati 12:56: each [place] on nasal 03 nostril. Medical spray Branch guaiFENesin Yes 1200mg Take 1,200 [facility] 600 mg 3-01 mg by ity of tablet 12:56: mouth [place] 03 every 12 Medical (twelve) Branch hours. solifenacin Yes 10mg Take 10 mg [facility] 10 mg 3-01 by mouth. ity of tablet 12:56: [place] [facility] Butalbital- Yes 1{capsu Take 1 U nivers Acetaminoph 3-01 le} capsule by it y of en-Caff 12:56: mouth. [place] 50-300-40 03 Medical mg per Branch capsule vitamin E Yes 200U Take 200 [facility] ers 200 unit 3-01 Units by ity of capsule 12:56: mouth [place] 03 daily. Medical Branch omega-3 Yes Take by [facility] fatty acids 3-01 mouth. ity of (FISH OIL 12:56: [place] [facility] 03 Medical ORAL) Branch ranitidine Yes [id number] 300mg Take 300 [facility] 300 mg 3-01 mg by ity of tablet 12:56: mouth [place] 03 daily. Medical Branch estradiol 2 Yes [id number] 2mg Take 2 mg [facility] mg tablet 3-01 by mouth ity of 12:56: daily. [place] [facility] montelukast Yes [id number] 10mg Take 10 mg [facility] 10 mg 3-01 by mouth ity of tablet 12:56: daily. [place] [facility] cetirizine Yes [id number] 10mg Take 10 mg [facility] (ZYRTEC) 10 3-01 by mouth ity of mg tablet 12:56: daily. [place] [facility] ondansetron Yes [id number] 4mg Take 4 mg [facility] (ZOFRAN 3-01 by mouth ity of ODT) 4 mg 12:56: every 8 [place] disintegr 03 (eight) Medic al ing tablet hours as Branc h needed. omeprazole Yes [id number] 40mg Take 40 mg [facility] (PRILOSEC) 3-01 by mouth 2 ity of 40 mg 12:56: (two) [place] capsule 03 times Medical daily. Branch acetaminoph Yes acetaminop [facility] en-codeine 3-01 hen 300 ity of 300-30 mg 12:56: mg-codeine [place] tablet 03 30 mg Medical tablet Branch TAKE 1-2 TABLETS BY MOUTH EVERY 6 HOURS NEEDED FOR PAIN Fluticasone Yes Advair [facility] ers -Salmeterol 3-01 Diskus 500 it y of 500-50 12:56: mcg-50 [place] mcg/dose 03 mcg/dose Medical inhalation powder for Bra nch disk inhalation Cranberry Yes by NOT [facility] 400 mg Cap 3-01 APPLICABLE ity of 12:56: route. Medical Branch docusate Yes 100mg Take 100 [facility] ers 100 mg 3-01 mg by ity of capsule 12:56: mouth. Medical Branch fluticasone Yes 2{spray Use 2 Un nemo 50 3-01 } Sprays in ity of mcg/actuati 12:56: each [place] on nasal 03 nostril. Medical spray Branch guaiFENesin Yes 1200mg Take 1,200 [facility] 600 mg 3-01 mg by ity of tablet 12:56: mouth [place] 03 every 12 Medical (twelve) Branch hours. solifenacin Yes 10mg Take 10 mg [facility] 10 mg 3-01 by mouth. ity of tablet 12:56: Medical Branch Butalbital- Yes 1{capsu Take 1 U nivers Acetaminoph 3-01 le} capsule by it y of en-Caff 12:56: mouth. [place] 50-300-40 03 Medical mg per Branch capsule vitamin E Yes 200U Take 200 [facility] ers 200 unit 3-01 Units by ity of capsule 12:56: mouth [place] 03 daily. Medical Branch omega-3 Yes Take by [facility] fatty acids 3-01 mouth. ity of (FISH OIL 12:56: [place] [facility] 03 Medical ORAL) Branch ranitidine Yes [id number] 300mg Take 300 [facility] 300 mg 3-01 mg by ity of tablet 12:56: mouth [place] 03 daily. Medical Branch estradiol 2 Yes [id number] 2mg Take 2 mg [facility] mg tablet 3-01 by mouth ity of 12:56: daily. [place] [address] Medical Branch montelukast Yes [id number] 10mg Take 10 mg [facility] 10 mg 3-01 by mouth ity of tablet 12:56: daily. [place] [address] Medical Branch cetirizine Yes [id number] 10mg Take 10 mg [facility] (ZYRTEC) 10 3- by mouth ity of mg tablet 12:56: daily. [place] [address] Medical Branch ondansetron Yes [id number] 4mg Take 4 mg [facility] (ZOFRAN 3- by mouth ity of ODT) 4 mg 12:56: every 8 [place] disintegrat 03 (eight) Medic al ing tablet hours as Branc h needed. omeprazole Yes [id number] 40mg Take 40 mg [facility] (PRILOSEC) 3 by mouth 2 ity of 40 mg 12:56: (two) [place] capsule 03 times Medical daily. Branch acetaminoph Yes acetaminop [facility] en-codeine 3- hen 300 ity of 300-30 mg 12:56: mg-codeine [place] tablet 03 30 mg Medical tablet Branch TAKE 1-2 TABLETS BY MOUTH EVERY 6 HOURS NEEDED FOR PAIN Fluticasone Yes Advair [facility] ers -Salmeterol 3- Diskus 500 it y of 500-50 12:56: mcg-50 [place] mcg/dose 03 mcg/dose Medical inhalation powder for Bra [facility] disk inhalation Cranberry Yes by NOT Univer s 400 mg Cap 3- APPLICABLE ity of 12:56: route. [place] [address] Medical Branch docusate Yes 100mg Take 100 [facility] ers 100 mg 3- mg by ity of capsule 12:56: mouth. [place] [address] Medical Branch fluticasone Yes 2{spray Use 2 Un nemo 50 3 } Sprays in ity of mcg/actuati 12:56: each [place] on nasal 03 nostril. Medical spray Branch guaiFENesin Yes 1200mg Take 1,200 [facility] 600 mg 3-01 mg by ity of tablet 12:56: mouth [place] 03 every 12 Medical (twelve) Branch hours. solifenacin Yes 10mg Take 10 mg [facility] 10 mg 3-01 by mouth. ity of tablet 12:56: [place] [facility] Butalbital- Yes 1{capsu Take 1 U nivers Acetaminoph 3-01 le} capsule by it y of en-Caff 12:56: mouth. [place] 50-300-40 03 Medical mg per Branch capsule vitamin E Yes 200U Take 200 [facility] ers 200 unit 3-01 Units by ity of capsule 12:56: mouth [place] 03 daily. Medical Branch omega-3 Yes Take by [facility] fatty acids 3-01 mouth. ity of (FISH OIL 12:56: [place] [facility] 03 Medical ORAL) Branch ranitidine Yes [id number] 300mg Take 300 [facility] 300 mg 3-01 mg by ity of tablet 12:56: mouth [place] 03 daily. Medical Branch estradiol 2 Yes [id number] 2mg Take 2 mg [facility] mg tablet 3-01 by mouth ity of 12:56: daily. [place] [address] Medical Branch montelukast Yes [id number] 10mg Take 10 mg [facility] 10 mg 3-01 by mouth ity of tablet 12:56: daily. [address] Branch cetirizine Yes [id number] 10mg Take 10 mg [facility] (ZYRTEC) 10 3-01 by mouth ity of mg tablet 12:56: daily. [place] [facility] ondansetron Yes [id number] 4mg Take 4 mg [facility] (ZOFRAN 3-01 by mouth ity of ODT) 4 mg 12:56: every 8 [place] disintegrat 03 (eight) Medic al ing tablet hours as Branc h needed. omeprazole Yes [id number] 40mg Take 40 mg [facility] (PRILOSEC) 3-01 by mouth 2 ity of 40 mg 12:56: (two) [place] capsule 03 times Medical daily. Branch acetaminoph Yes acetaminop [facility] en-codeine 3-01 hen 300 ity of 300-30 mg 12:56: mg-codeine [place] tablet 03 30 mg Medical tablet Branch TAKE 1-2 TABLETS BY MOUTH EVERY 6 HOURS NEEDED FOR PAIN Fluticasone Yes Advair [facility] ers -Salmeterol 3-01 Diskus 500 it y of 500-50 12:56: mcg-50 [place] mcg/dose 03 mcg/dose Medical inhalation powder for Bra [facility] disk inhalation Cranberry Yes by NOT Univer s 400 mg Cap 3-01 APPLICABLE ity of 12:56: route. Medical Branch docusate Yes 100mg Take 100 [facility] ers 100 mg 3-01 mg by ity of capsule 12:56: mouth. Medical Branch fluticasone Yes 2{spray Use 2 Un nemo 50 3-01 } Sprays in ity of mcg/actuati 12:56: each [place] on nasal 03 nostril. Medical spray Branch guaiFENesin Yes 1200mg Take 1,200 [facility] 600 mg 3-01 mg by ity of tablet 12:56: mouth [place] 03 every 12 Medical (twelve) Branch hours. solifenacin Yes 10mg Take 10 mg [facility] 10 mg 3-01 by mouth. ity of tablet 12:56: Medical Branch Butalbital- Yes 1{capsu Take 1 U nivers Acetaminoph 3-01 le} capsule by it y of en-Caff 12:56: mouth. [place] 50-300-40 03 Medical mg per Branch capsule vitamin E Yes 200U Take 200 [facility] ers 200 unit 3-01 Units by ity of capsule 12:56: mouth [place] 03 daily. Medical Branch omega-3 Yes Take by [facility] fatty acids 3-01 mouth. ity of (FISH OIL 12:56: [place] [facility]CEN[facility] 03 Medical ORAL) Branch Cranberry Yes by NOT Univer s 400 mg Cap 3-01 APPLICABLE ity of 12:56: route. Medical Branch docusate Yes 100mg Take 100 [facility] ers 100 mg 3-01 mg by ity of capsule 12:56: mouth. [place] [facility] Branch fluticasone Yes 2{spray Use 2 Un nemo 50 3-01 } Sprays in ity of mcg/actuati 12:56: each [place] on nasal 03 nostril. Medical spray Branch vitamin E Yes 200U Take 200 [facility] ers 200 unit 3-01 Units by ity of capsule 12:56: mouth [place] daily. Medical Branch omega-3 Yes Take by [facility] fatty acids 3-01 mouth. ity of (FISH OIL 12:56: [place] CONCENTRATE 03 Medical ORAL) Branch Cranberry Yes by NOT Un[facility] s 400 mg Cap 3-01 APPLICABLE ity of 12:56: route. Medical Branch docusate Yes 100mg Take 100 [facility] ers 100 mg 3-01 mg by ity of capsule 12:56: mouth. Medical Branch fluticasone Yes 2{spray Use 2 Un nemo 50 3-01 } Sprays in ity of mcg/actuati 12:56: each [place] on nasal 03 nostril. Medical spray Branch vitamin E Yes 200U Take 200 [facility] ers 200 unit 3-01 Units by ity of capsule 12:56: mouth daily. Medical Branch omega-3 Yes Take by [facility] fatty acids 3-01 mouth. ity of (FISH OIL 12:56: [place] CONCENTRATE 03 Medical ORAL) Branch Cranberry Yes by NOT Univer s 400 mg Cap 3- APPLICABLE ity of 12:56: route. Medical Branch docusate Yes 100mg Take 100 [facility] ers 100 mg 3-01 mg by ity of capsule 12:56: mouth. Medical Branch fluticasone Yes 2{spray Use 2 Un nemo 50 3-01 } Sprays in ity of mcg/actuati 12:56: each [place] on nasal 03 nostril. Medical spray Branch vitamin E Yes 200U Take 200 [facility] ers 200 unit 3-01 Units by ity of capsule 12:56: mouth [place] daily. Medical Branch omega-3 Yes Take by [facility] fatty acids 3-01 mouth. ity of (FISH OIL 12:56: [place] CONCENTRATE 03 Medical ORAL) Branch Cranberry Yes by NOT Univer s 400 mg Cap 3-01 APPLICABLE ity of 12:56: route. Medical Branch docusate Yes 100mg Take 100 [facility] ers 100 mg 3-01 mg by ity of capsule 12:56: mouth. Medical Branch fluticasone Yes 2{spray Use 2 Un nemo 50 3-01 } Sprays in ity of mcg/actuati 12:56: each [place] on nasal 03 nostril. Medical spray Branch vitamin E Yes 200U Take 200 [facility] ers 200 unit 3-01 Units by ity of capsule 12:56: mouth [place] 03 daily. Medical Branch omega-3 Yes Take by [facility] fatty acids 3-01 mouth. ity of (FISH OIL 12:56: [place] CONCENTRATE 03 Medical ORAL) Branch Cranberry Yes by NOT Univer s 400 mg Cap 3-01 APPLICABLE ity of 12:56: route. Medical Branch docusate Yes 100mg Take 100 [facility] ers 100 mg 3-01 mg by ity of capsule 12:56: mouth. Medical Branch fluticasone Yes 2{spray Use 2 Un nemo 50 3-01 } Sprays in ity of mcg/actuati 12:56: each [place] on nasal 03 nostril. Medical spray Branch vitamin E Yes 200U Take 200 [facility] ers 200 unit 3-01 Units by ity of capsule 12:56: mouth [place] 03 daily. Medical Branch omega-3 Yes Take by [facility] fatty acids 3-01 mouth. ity of (FISH OIL 12:56: [place] CONCENTRATE 03 Medical ORAL) Branch Cranberry Yes by NOT Univer s 400 mg Cap 301 APPLICABLE ity of 12:56: route. Medical Branch docusate Yes 100mg Take 100 [facility] ers 100 mg 3-01 mg by ity of capsule 12:56: mouth. Medical Branch fluticasone Yes 2{spray Use 2 Un nemo 50 3-01 } Sprays in ity of mcg/actuati 12:56: each [place] on nasal 03 nostril. Medical spray Branch vitamin E Yes 200U Take 200 [facility] ers 200 unit 3-01 Units by ity of capsule 12:56: mouth [place] 03 daily. Medical Branch omega-3 Yes Take by [facility] fatty acids 3-01 mouth. ity of (FISH OIL 12:56: [place] CONCENTRATE 03 Medical ORAL) Branch Cranberry Yes by NOT Univer s 400 mg Cap 3-01 APPLICABLE ity of 12:56: route. Medical Branch docusate Yes 100mg Take 100 [facility] ers 100 mg 3-01 mg by ity of capsule 12:56: mouth. Medical Branch fluticasone Yes 2{spray Use 2 Un nemo 50 3-01 } Sprays in ity of mcg/actuati 12:56: each [place] on nasal 03 nostril. Medical spray Branch vitamin E Yes 200U Take 200 [facility] ers 200 unit 3-01 Units by ity of capsule 12:56: mouth [place] 03 daily. Medical Branch omega-3 Yes Take by [facility] fatty acids 3-01 mouth. ity of (FISH OIL 12:56: [place] CONCENTRATE 03 Medical ORAL) Branch Cranberry Yes by NOT Univer s 400 mg Cap 3-01 APPLICABLE ity of 12:56: route. Medical Branch docusate Yes 100mg Take 100 [facility] ers 100 mg 3-01 mg by ity of capsule 12:56: mouth. Medical Branch fluticasone Yes 2{spray Use 2 Un nemo 50 3-01 } Sprays in ity of mcg/actuati 12:56: each [place] on nasal 03 nostril. Medical spray Branch vitamin E Yes 200U Take 200 [facility] ers 200 unit 3-01 Units by ity of capsule 12:56: mouth [place] 03 daily. Medical Branch omega-3 Yes Take by [facility] fatty acids 3-01 mouth. ity of (FISH OIL 12:56: [place] CONCENTRATE 03 Medical ORAL) Branch Cranberry Yes by NOT Univer s 400 mg Cap 3-01 APPLICABLE ity of 12:56: route. Medical Branch docusate Yes 100mg Take 100 [facility] ers 100 mg 3-01 mg by ity of capsule 12:56: mouth. Medical Branch fluticasone Yes 2{spray Use 2 Un nemo 50 3-01 } Sprays in ity of mcg/actuati 12:56: each [place] on nasal 03 nostril. Medical spray Branch vitamin E Yes 200U Take 200 Univ ers 200 unit 3-01 Units by ity of capsule 12:56: mouth [place] 03 daily. Medical Branch omega-3 Yes Take by [facility] fatty acids 3-01 mouth. ity of (FISH OIL 12:56: [place] CONCENTRATE 03 Medical ORAL) Branch Cranberry Yes by NOT Univer s 400 mg Cap 3 APPLICABLE ity of 12:56: route. Medical Branch docusate Yes 100mg Take 100 [facility] ers 100 mg 3-01 mg by ity of capsule 12:56: mouth. Medical Branch fluticasone Yes 2{spray Use 2 Un nemo 50 3-01 } Sprays in ity of mcg/actuati 12:56: each [place] on nasal 03 nostril. Medical spray Branch vitamin E Yes 200U Take 200 [facility] ers 200 unit 3-01 Units by ity of capsule 12:56: mouth daily. Medical Branch omega-3 Yes Take by [facility] fatty acids 3-01 mouth. ity of (FISH OIL 12:56: [place] CONCENTRATE 03 Medical ORAL) Branch Cranberry Yes by NOT Univer s 400 mg Cap 3 APPLICABLE ity of 12:56: route. Medical Branch docusate Yes 100mg Take 100 [facility] ers 100 mg 3-01 mg by ity of capsule 12:56: mouth. Medical Branch fluticasone Yes 2{spray Use 2 Un nemo 50 3-01 } Sprays in ity of mcg/actuati 12:56: each [place] on nasal 03 nostril. Medical spray Branch vitamin E Yes 200U Take 200 [facility] ers 200 unit 3-01 Units by ity of capsule 12:56: mouth [place] 03 daily. Medical Branch omega-3 Yes Take by [facility] fatty acids 3-01 mouth. ity of (FISH OIL 12:56: [place] CONCENTRATE 03 Medical ORAL) Branch Cranberry Yes by NOT Univer s 400 mg Cap 3 APPLICABLE ity of 12:56: route. Medical Branch docusate Yes 100mg Take 100 [facility] ers 100 mg 3-01 mg by ity of capsule 12:56: mouth. Medical Branch fluticasone Yes 2{spray Use 2 Un nemo 50 3-01 } Sprays in ity of mcg/actuati 12:56: each [place] on nasal 03 nostril. Medical spray Branch vitamin E Yes 200U Take 200 [facility] ers 200 unit 3-01 Units by ity of capsule 12:56: mouth [place] 03 daily. Medical Branch omega-3 Yes Take by [facility] fatty acids 3-01 mouth. ity of (FISH OIL 12:56: [place] CONCENTRATE 03 Medical ORAL) Branch Cranberry Yes by NOT Univer s 400 mg Cap 3 APPLICABLE ity of 12:56: route. Medical Branch docusate Yes 100mg Take 100 [facility] ers 100 mg 3-01 mg by ity of capsule 12:56: mouth. Medical Branch fluticasone Yes 2{spray Use 2 Un nemo 50 3-01 } Sprays in ity of mcg/actuati 12:56: each [place] on nasal 03 nostril. Medical spray Branch vitamin E Yes 200U Take 200 [facility] ers 200 unit 3-01 Units by ity of capsule 12:56: mouth [place] 03 daily. Medical Branch omega-3 Yes Take by [facility] fatty acids 3-01 mouth. ity of (FISH OIL 12:56: [place] CONCENTRATE 03 Medical ORAL) Branch Cranberry Yes by NOT Univer s 400 mg Cap 07-13 APPLICABLE ity of 12:56: route. Medical Branch docusate Yes 100mg Take 100 Univ ers 100 mg 3-01 mg by ity of capsule 12:56: mouth. Medical Branch fluticasone Yes 2{spray Use 2 Un nemo 50 3-01 } Sprays in ity of mcg/actuati 12:56: each [place] on nasal 03 nostril. Medical spray Branch vitamin E Yes 200U Take 200 Univ ers 200 unit 3-01 Units by ity of capsule 12:56: mouth [place] 03 daily. Medical Branch omega-3 Yes Take by [facility] fatty acids 3-01 mouth. ity of (FISH OIL 12:56: [place] CONCENTRATE 03 Medical ORAL) Branch Cranberry Yes by NOT Univer s 400 mg Cap 3-01 APPLICABLE ity of 12:56: route. Medical Branch docusate Yes 100mg Take 100 Univ ers 100 mg 3-01 mg by ity of capsule 12:56: mouth. Medical Branch fluticasone Yes 2{spray Use 2 Un nemo 50 3-01 } Sprays in ity of mcg/actuati 12:56: each [place] on nasal 03 nostril. Medical spray Branch vitamin E Yes 200U Take 200 Univ ers 200 unit 3-01 Units by ity of capsule 12:56: mouth [place] 03 daily. Medical Branch omega-3 Yes Take by [facility] fatty acids 3-01 mouth. ity of (FISH OIL 12:56: [place] CONCENTRATE 03 Medical ORAL) Branch Cranberry Yes by NOT Univer s 400 mg Cap 301 APPLICABLE ity of 12:56: route. Medical Branch docusate Yes 100mg Take 100 Univ ers 100 mg 3-01 mg by ity of capsule 12:56: mouth. Medical Branch fluticasone Yes 2{spray Use 2 Un nemo 50 3-01 } Sprays in ity of mcg/actuati 12:56: each [place] on nasal 03 nostril. Medical spray Branch vitamin E Yes 200U Take 200 Univ ers 200 unit 3-01 Units by ity of capsule 12:56: mouth [place] 03 daily. Medical Branch omega-3 Yes Take by [facility] fatty acids 3-01 mouth. ity of (FISH OIL 12:56: [place] CONCENTRATE 03 Medical ORAL) Branch Cranberry Yes by NOT Univer s 400 mg Cap 301 APPLICABLE ity of 12:56: route. Medical Branch docusate Yes 100mg Take 100 Univ ers 100 mg 3-01 mg by ity of capsule 12:56: mouth. Medical Branch fluticasone Yes 2{spray Use 2 Un nemo 50 3-01 } Sprays in ity of mcg/actuati 12:56: each [place] on nasal 03 nostril. Medical spray Branch vitamin E Yes 200U Take 200 Univ ers 200 unit 3-01 Units by ity of capsule 12:56: mouth [place] 03 daily. Medical Branch omega-3 Yes Take by [facility] fatty acids 3-01 mouth. ity of (FISH OIL 12:56: [place] CONCENTRATE 03 Medical ORAL) Branch Chantix Chantix 2019-0 No Chantix Patel braulio Continuing Continuing 9-17 Continuing da Month Box 1 Month Box 1 00:00: Month Box [facility] tablet mg tablet 00 1 mg al tablet [facility] linaCLOtide 2019-0 Yes [id number] 145ug Take 1 [facility] (LINZESS) 8-06 capsule by ity of 145 mcg 00:00: mouth [place] capsule 00 daily. Medical Branch linaCLOtide 2019-0 Yes [id number] 145ug Take 1 [facility] (LINZESS) 8-06 capsule by ity of 145 mcg 00:00: mouth [place] capsule 00 daily. Medical Branch linaCLOtide 2019-0 Yes [id number] 145ug Take 1 [facility] (LINZESS) 8-06 capsule by ity of 145 mcg 00:00: mouth [place] capsule 00 daily. Medical Branch linaCLOtide 2019-0 Yes [id number] 145ug Take 1 [facility] (LINZESS) 8-06 capsule by ity of 145 mcg 00:00: mouth [place] capsule 00 daily. Medical Branch linaCLOtide 2019-0 Yes [id number] 145ug Take 1 [facility] (LINZESS) 8-06 capsule by ity of 145 mcg 00:00: mouth [place] capsule 00 daily. Medical Branch linaCLOtide 2019-0 Yes [id number] 145ug Take 1 [facility] (LINZESS) 8-06 capsule by ity of 145 mcg 00:00: mouth [place] capsule 00 daily. Medical Branch linaCLOtide 2020-0 Yes [id number] 145ug Take 1 [facility] (LINZESS) 8-06 capsule by ity of 145 mcg 00:00: mouth [place] capsule 00 daily. Medical Branch linaCLOtide 2020-0 Yes [id number] 145ug Take 1 [facility] (LINZESS) 8-06 capsule by ity of 145 mcg 00:00: mouth [place] capsule 00 daily. Medical Branch linaCLOtide 2020-0 Yes [id number] 145ug Take 1 [facility] (LINZESS) 8-06 capsule by ity of 145 mcg 00:00: mouth [place] capsule 00 daily. Medical Branch linaCLOtide 2020-0 Yes [id number] 145ug Take 1 [facility] (LINZESS) 8-06 capsule by ity of 145 mcg 00:00: mouth [place] capsule 00 daily. Medical Branch linaCLOtide 2020-0 Yes [id number] 145ug Take 1 [facility] (LINZESS) 8-06 capsule by ity of 145 mcg 00:00: mouth [place] capsule 00 daily. Medical Branch linaCLOtide 2020-0 Yes [id number] 145ug Take 1 [facility] (LINZESS) 8-06 capsule by ity of 145 mcg 00:00: mouth [place] capsule 00 daily. Medical Branch linaCLOtide 2020-0 Yes [id number] 145ug Take 1 [facility] (LINZESS) 8-06 capsule by ity of 145 mcg 00:00: mouth [place] capsule 00 daily. Medical Branch linaCLOtide 2020-0 Yes [id number] 145ug Take 1 [facility] (LINZESS) 8-06 capsule by ity of 145 mcg 00:00: mouth [place] capsule 00 daily. Medical Branch linaCLOtide 2020-0 Yes [id number] 145ug Take 1 [facility] (LINZESS) 8-06 capsule by ity of 145 mcg 00:00: mouth [place] capsule 00 daily. Medical Branch linaCLOtide 2020-0 Yes [id number] 145ug Take 1 [facility] (LINZESS) 8-06 capsule by ity of 145 mcg 00:00: mouth [place] capsule 00 daily. Medical Branch linaCLOtide 2020-0 Yes [id number] 145ug Take 1 [facility] (LINZESS) 8-06 capsule by ity of 145 mcg 00:00: mouth [place] capsule 00 daily. Medical Branch linaCLOtide 2020-0 Yes [id number] 145ug Take 1 [facility] (LINZESS) 8-06 capsule by ity of 145 mcg 00:00: mouth [place] capsule 00 daily. Medical Branch linaCLOtide 2020-0 Yes [id number] 145ug Take 1 [facility] (LINZESS) 8-06 capsule by ity of 145 mcg 00:00: mouth [place] capsule 00 daily. Medical Branch linaCLOtide 2020-0 Yes [id number] 145ug Take 1 [facility] (LINZESS) 8-06 capsule by ity of 145 mcg 00:00: mouth [place] capsule 00 daily. Medical Branch linaCLOtide 2020-0 Yes [id number] 145ug Take 1 [facility] (LINZESS) 8-06 capsule by ity of 145 mcg 00:00: mouth [place] capsule 00 daily. Medical Branch linaCLOtide 2020-0 3- No [id number] 145ug Take 1 [facility] (LINZESS) 12-18 capsule by ity of 145 mcg 00:00: 00:00 mouth [place] capsule 00 :00 daily. Medical Branch linaCLOtide 2019-0 2023- No [id number] 145ug Take 1 [facility] (LINZESS) 12-18 capsule by ity of 145 mcg 00:00: 00:00 mouth [place] capsule 00 :00 daily. Medical Branch pioglitazon 2019-0 Yes Univer s e 15 mg 6-17 ity of tablet 00:00: [place] [facility] pioglitazon 2019-0 Yes Univer s e 15 mg 6-17 ity of tablet 00:00: [place] [facility] pioglitazon 2019-0 Yes Univer s e 15 mg 6-17 ity of tablet 00:00: [place] [facility] pioglitazon 2019-0 Yes Univer s e 15 mg 6-17 ity of tablet 00:00: [place] [facility] pioglitazon 2019-0 Yes Univer s e 15 mg 6-17 ity of tablet 00:00: [place] [facility] pioglitazon 2019-0 Yes Univer s e 15 mg 6-17 ity of tablet 00:00: [place] [facility] pioglitazon 2019-0 Yes Univer s e 15 mg 6-17 ity of tablet 00:00: [place] [facility] pioglitazon 2019-0 Yes Univer s e 15 mg 6-17 ity of tablet 00:00: [place] [facility] pioglitazon 2019-0 Yes Univer s e 15 mg 6-17 ity of tablet 00:00: [place] [facility] pioglitazon 2019-0 Yes Univer s e 15 mg 6-17 ity of tablet 00:00: [place] [facility] pioglitazon 2019-0 Yes Univer s e 15 mg 6-17 ity of tablet 00:00: [place] [facility] pioglitazon 2019-0 Yes Univer s e 15 mg 6-17 ity of tablet 00:00: [place] 00 Medical Branch pioglitazon 2019-0 Yes Univer s e 15 mg 6-17 ity of tablet 00:00: [place] [facility] pioglitazon 2019-0 Yes Univer s e 15 mg 6-17 ity of tablet 00:00: [place] 00 Medical Branch pioglitazon 2019-0 Yes Univer s e 15 mg 6-17 ity of tablet 00:00: [place] 00 [facility] Branch pioglitazon 2019-0 Yes Univer s e 15 mg 6-17 ity of tablet 00:00: [place] [facility] pioglitazon 2019-0 Yes Univer s e 15 mg 6-17 ity of tablet 00:00: [place] [facility] pioglitazon 2019-0 Yes Univer s e 15 mg 6-17 ity of tablet 00:00: [place] [facility] pioglitazon 2019-0 Yes Univer s e 15 mg 6-17 ity of tablet 00:00: [place] [facility] pioglitazon 2019-0 Yes Univer s e 15 mg 6-17 ity of tablet 00:00: [place] [facility] pioglitazon 2019-0 Yes Univer s e 15 mg 6-17 ity of tablet 00:00: [place] [facility] pioglitazon 2019-0 2023- No Unive rs e 15 mg 6-17 02-08 ity of tablet 00:00: 00:00 [place] 00 :00 Medical Branch pioglitazon 2019-0 2023- No Unive rs e 15 mg 6-17 02-08 ity of tablet 00:00: 00:00 [place] 00 :00 Medical Branch colchicine 2019-0 Yes TK 1 T PO Un nemo 0.6 mg 5-30 QHS ity of tablet 00:00: [place] [facility] colchicine 2019-0 Yes TK 1 T PO Un nemo 0.6 mg 5-30 QHS ity of tablet 00:00: [place] [facility] colchicine 2019-0 Yes TK 1 T PO Un nemo 0.6 mg 5-30 QHS ity of tablet 00:00: [place] [address] Medical Branch colchicine 2019-0 Yes TK 1 T PO Un nemo 0.6 mg 5-30 QHS ity of tablet 00:00: [place] [address] Medical Branch colchicine 2019-0 Yes TK 1 T PO Un nemo 0.6 mg 5-30 QHS ity of tablet 00:00: [place] [address] Medical Branch colchicine 2019-0 Yes TK 1 T PO Un nemo 0.6 mg 5-30 QHS ity of tablet 00:00: [place] [address] Medical Branch colchicine 2019-0 Yes TK 1 T PO Un nemo 0.6 mg 5-30 QHS ity of tablet 00:00: [place] [facility] colchicine 2019-0 Yes TK 1 T PO Un nemo 0.6 mg 5-30 QHS ity of tablet 00:00: [place] [facility] colchicine 2019-0 Yes TK 1 T PO Un nemo 0.6 mg 5-30 QHS ity of tablet 00:00: [place] [facility] colchicine 2019-0 Yes TK 1 T PO Un nemo 0.6 mg 5-30 QHS ity of tablet 00:00: [place] [facility] colchicine 2019-0 Yes TK 1 T PO Un nemo 0.6 mg 5-30 QHS ity of tablet 00:00: [place] [facility] colchicine 2019-0 Yes TK 1 T PO Un nemo 0.6 mg 5-30 QHS ity of tablet 00:00: [place] [address] Medical Branch colchicine 2019-0 Yes TK 1 T PO Un nemo 0.6 mg 5-30 QHS ity of tablet 00:00: [place] [address] Medical Branch colchicine 2019-0 Yes TK 1 T PO Un nemo 0.6 mg 5-30 QHS ity of tablet 00:00: [place] [address] Medical Branch colchicine 2019-0 Yes TK 1 T PO Un nemo 0.6 mg 5-30 QHS ity of tablet 00:00: [place] [address] Medical Branch colchicine 2019-0 Yes TK 1 T PO Un nemo 0.6 mg 5-30 QHS ity of tablet 00:00: [place] [address] Medical Branch colchicine 2019-0 Yes TK 1 T PO Un nemo 0.6 mg 5-30 QHS ity of tablet 00:00: [place] [facility] colchicine 2019-0 Yes TK 1 T PO Un nemo 0.6 mg 5-30 QHS ity of tablet 00:00: [place] [address] Medical Branch colchicine 2019-0 Yes TK 1 T PO Un nemo 0.6 mg 5-30 QHS ity of tablet 00:00: [place] [address] Medical Branch colchicine 2019-0 Yes TK 1 T PO Un nemo 0.6 mg 5-30 QHS ity of tablet 00:00: [place] [address] Medical Branch colchicine 2019-0 Yes TK 1 T PO Un nemo 0.6 mg 5-30 QHS ity of tablet 00:00: [place] [address] Medical Branch colchicine 2019-0 2023- No TK 1 T PO U nivers 0.6 mg 5-30 08 QHS ity of tablet 00:00: 00:00 [place] 00 :00 Medical Branch colchicine 2022- No TK 1 T PO U nivers 0.6 mg 5-30 08 QHS ity of tablet 00:00: 00:00 [place] 00 :00 Medical Branch CHANTIX Yes Univers STARTING 4-24 ity of MONTH BOX 00:00: [place] 0.5 mg 00 Medical (11)- 1 mg Branch (42) tablet fluconazole Yes Univer s 150 mg 4-24 ity of tablet 00:00: [place] 00 Medical Branch CHANTIX Yes Univers STARTING 4-24 ity of MONTH BOX 00:00: [place] 0.5 mg 00 Medical (11)- 1 mg Branch (42) tablet fluconazole Yes Univer s 150 mg 4-24 ity of tablet 00:00: 00 Medical Branch CHANTIX 2018- Yes Univers STARTING 4-24 ity of MONTH BOX 00:00: [place] 0.5 mg 00 Medical (11)- 1 mg Branch (42) tablet fluconazole 2018- Yes Univer s 150 mg 4-24 ity of tablet 00:00: [place] 00 Medical Branch CHANTIX 2018- Yes Univers STARTING 4-24 ity of MONTH BOX 00:00: [place] 0.5 mg 00 Medical (11)- 1 mg Branch (42) tablet fluconazole 2018- Yes Univer s 150 mg 4-24 ity of tablet 00:00: [place] 00 Medical Branch CHANTIX 2018- Yes Univers STARTING 4-24 ity of MONTH BOX 00:00: [place] 0.5 mg 00 Medical (11)- 1 mg Branch (42) tablet CHANTIX 2019-0 Yes Univers STARTING 4-24 ity of MONTH BOX 00:00: [place] 0.5 mg 00 Medical (11)- 1 mg Branch (42) tablet CHANTIX 2019-0 Yes Univers STARTING 4-24 ity of MONTH BOX 00:00: [place] 0.5 mg 00 Medical (11)- 1 mg Branch (42) tablet CHANTIX 2019-0 Yes Univers STARTING 4-24 ity of MONTH BOX 00:00: [place] 0.5 mg 00 Medical (11)- 1 mg Branch (42) tablet CHANTIX 2019-0 Yes Univers STARTING 4-24 ity of MONTH BOX 00:00: [place] 0.5 mg 00 Medical (11)- 1 mg Branch (42) tablet CHANTIX 2019-0 Yes Univers STARTING 4-24 ity of MONTH BOX 00:00: [place] 0.5 mg 00 Medical (11)- 1 mg Branch (42) tablet CHANTIX 2019-0 Yes Univers STARTING 4-24 ity of MONTH BOX 00:00: [place] 0.5 mg 00 Medical (11)- 1 mg Branch (42) tablet CHANTIX 2019-0 Yes Univers STARTING 4-24 ity of MONTH BOX 00:00: [place] 0.5 mg 00 Medical (11)- 1 mg Branch (42) tablet CHANTIX 2019-0 Yes Univers STARTING 4-24 ity of MONTH BOX 00:00: [place] 0.5 mg 00 Medical (11)- 1 mg Branch (42) tablet CHANTIX 2019-0 Yes Univers STARTING 4-24 ity of MONTH BOX 00:00: [place] 0.5 mg 00 Medical (11)- 1 mg Branch (42) tablet CHANTIX 2019-0 Yes Univers STARTING 4-24 ity of MONTH BOX 00:00: [place] 0.5 mg 00 Medical (11)- 1 mg Branch (42) tablet CHANTIX 2019-0 Yes Univers STARTING 4-24 ity of MONTH BOX 00:00: [place] 0.5 mg 00 Medical (11)- 1 mg Branch (42) tablet CHANTIX 2019-0 Yes Univers STARTING 4-24 ity of MONTH BOX 00:00: [place] 0.5 mg 00 Medical (11)- 1 mg Branch (42) tablet CHANTIX 2019-0 Yes Univers STARTING 4-24 ity of MONTH BOX 00:00: [place] 0.5 mg 00 Medical (11)- 1 mg Branch (42) tablet CHANTIX 2019-0 Yes Univers STARTING 4-24 ity of MONTH BOX 00:00: [place] 0.5 mg 00 Medical (11)- 1 mg Branch (42) tablet CHANTIX 2019-0 Yes Univers STARTING 4-24 ity of MONTH BOX 00:00: [place] 0.5 mg 00 Medical (11)- 1 mg Branch (42) tablet CHANTIX 2019-0 2022- No Univers STARTING 4-24 02-03 ity of MONTH BOX 00:00: 00:00 [place] 0.5 mg 00 :00 Medical (11)- 1 mg Branch (42) tablet fluconazole 2018-2021- No Unive rs 150 mg 4-24 11-14 ity of tablet 00:00: 00:00 [place] 00 :00 Medical Branch fluconazole 2018-0 2021- No Unive rs 150 mg 4-24 11-14 ity of tablet 00:00: 00:00 [place] 00 :00 Medical Branch fluconazole 2018-0 2021- No Unive rs 150 mg 4-24 11-14 ity of tablet 00:00: 00:00 [place] 00 :00 Medical Branch fluconazole 2018-0 2021- No Unive rs 150 mg 4-24 11-14 ity of tablet 00:00: 00:00 [place] 00 :00 Medical Branch DULOXETINE 2019-0 Yes [id number] TAKE 1 Univers 30 mg 3-22 CAPSULE ity of capsule 00:00: TWICE A [facility] DULOXETINE 2019-0 Yes [id number] TAKE 1 Univers 30 mg 3-22 CAPSULE ity of capsule 00:00: TWICE A [facility] DULOXETINE 2019-0 Yes [id number] TAKE 1 Univers 30 mg 3-22 CAPSULE ity of capsule 00:00: TWICE A [facility] DULOXETINE 2019-0 Yes [id number] TAKE 1 Univers 30 mg 3-22 CAPSULE ity of capsule 00:00: TWICE A [facility] DULOXETINE 2019-0 Yes [id number] TAKE 1 Univers 30 mg 3-22 CAPSULE ity of capsule 00:00: TWICE A [facility] DULOXETINE 2019-0 Yes [id number] TAKE 1 [facility] 30 mg 3-22 CAPSULE ity of capsule 00:00: TWICE A [facility] DULOXETINE 2019-0 Yes [id number] TAKE 1 [facility] 30 mg 3-22 CAPSULE ity of capsule 00:00: TWICE A [facility] DULOXETINE 2019-0 Yes [id number] TAKE 1 Univers 30 mg 3-22 CAPSULE ity of capsule 00:00: TWICE A [facility] DULOXETINE 2019-0 Yes [id number] TAKE 1 Univers 30 mg 3-22 CAPSULE ity of capsule 00:00: TWICE A [facility] DULOXETINE 2019-0 Yes [id number] TAKE 1 Univers 30 mg 3-22 CAPSULE ity of capsule 00:00: TWICE A [facility] DULOXETINE 2019-0 Yes [id number] TAKE 1 Univers 30 mg 3-22 CAPSULE ity of capsule 00:00: TWICE A [place] DULOXETINE 2019-0 Yes [id number] TAKE 1 Univers 30 mg 3-22 CAPSULE ity of capsule 00:00: TWICE A [facility] DULOXETINE 2019-0 Yes [id number] TAKE 1 [facility] 30 mg 3-22 CAPSULE ity of capsule 00:00: TWICE A [facility] DULOXETINE 2019-0 Yes [id number] TAKE 1 [facility] 30 mg 3-22 CAPSULE ity of capsule 00:00: TWICE A [facility] DULOXETINE 2019- Yes [id number] TAKE 1 [facility] 30 mg 3-22 CAPSULE ity of capsule 00:00: TWICE A [facility] DULOXETINE 2018- Yes [id number] TAKE 1 [facility] 30 mg 3-22 CAPSULE ity of capsule 00:00: TWICE A [facility] DULOXETINE 2019- Yes [id number] TAKE 1 [facility] 30 mg 3-22 CAPSULE ity of capsule 00:00: TWICE A [facility] DULOXETINE 2018- Yes [id number] TAKE 1 [facility] 30 mg 3-22 CAPSULE ity of capsule 00:00: TWICE A [facility] DULOXETINE 2019-0 Yes [id number] TAKE 1 [facility] 30 mg 3-22 CAPSULE ity of capsule 00:00: TWICE A [facility] DULOXETINE 2019-0 Yes [id number] TAKE 1 [facility] 30 mg 3-22 CAPSULE ity of capsule 00:00: TWICE A [facility] DULOXETINE 2019-0 Yes [id number] TAKE 1 [facility] 30 mg 3-22 CAPSULE ity of capsule 00:00: TWICE A [facility] DULOXETINE 2019-0 3- No [id number] TAKE 1 [facility] 30 mg 3-22 02-08 CAPSULE ity of capsule 00:00: 00:00 TWICE A [facility] DULOXETINE 2018-0 3- No [id number] TAKE 1 Univers 30 mg 3-22 02-08 CAPSULE ity of capsule 00:00: 00:00 TWICE A [place] [facility] furosemide 2019-0 Yes Univers 20 mg 3-18 ity of tablet 00:00: [place] [facility] furosemide 2019-0 Yes Univers 20 mg 3-18 ity of tablet 00:00: [place] [address] Medical Branch furosemide 2019-0 Yes Univers 20 mg 3-18 ity of tablet 00:00: [place] [address] Medical Branch furosemide 2019-0 Yes Univers 20 mg 3-18 ity of tablet 00:00: [place] [address] Medical Branch furosemide 2019-0 Yes Univers 20 mg 3-18 ity of tablet 00:00: [place] [address] Medical Branch furosemide 2019-0 Yes Univers 20 mg 3-18 ity of tablet 00:00: [place] [address] Medical Branch furosemide 2019-0 Yes Univers 20 mg 3-18 ity of tablet 00:00: [place] [address] Medical Branch furosemide 2019-0 Yes Univers 20 mg 3-18 ity of tablet 00:00: [place] [address] Medical Branch furosemide 2019-0 Yes Univers 20 mg 3-18 ity of tablet 00:00: [place] [address] Medical Branch furosemide 2019-0 Yes Univers 20 mg 3-18 ity of tablet 00:00: [place] [address] Medical Branch furosemide 2019-0 Yes Univers 20 mg 3-18 ity of tablet 00:00: [place] [address] Medical Branch furosemide 2019-0 Yes Univers 20 mg 3-18 ity of tablet 00:00: [place] [address] Medical Branch furosemide 2019-0 Yes Univers 20 mg 3-18 ity of tablet 00:00: [place] [address] Medical Branch furosemide 2019-0 Yes Univers 20 mg 3-18 ity of tablet 00:00: [place] [address] Medical Branch furosemide 2019-0 Yes Univers 20 mg 3-18 ity of tablet 00:00: [place] [address] Medical Branch furosemide 2019-0 Yes Univers 20 mg 3-18 ity of tablet 00:00: [place] [address] Medical Branch furosemide 2019-0 Yes Univers 20 mg 3-18 ity of tablet 00:00: [place] [address] Medical Branch furosemide 2019-0 Yes Univers 20 mg 3-18 ity of tablet 00:00: [place] [address] Medical Branch furosemide 2019-0 Yes Univers 20 mg 3-18 ity of tablet 00:00: [place] [address] Medical Branch furosemide 2019-0 Yes Univers 20 mg 3-18 ity of tablet 00:00: [place] [address] Medical Branch furosemide 2019-0 Yes Univers 20 mg 3-18 ity of tablet 00:00: [place] [address] Medical Branch furosemide 2019-0 2023- No Univer s 20 mg 3-18 02-08 ity of tablet 00:00: 00:[address] [place] [id number] 00 :00 Medical Branch furosemide 2019-0 3- No Univer s 20 mg 3-18 02-08 ity of tablet 00:00: 00:00 [place] 00 :00 Medical Branch guaiFENesin Yes 1200mg Take 1,200 [facility] (MUCINEX) 8-[address] 600 mg 10:53: [facility]. [facility] tablet 47 l extended release 12hr docusate Yes 100mg Take 100 Meth merlyn sodium 8-[address] (COLACE) 10:53: mouth. [facility] 100 MG 47 l capsule fluticasone Yes 2{spray 2 sprays [facility] (FLONASE) 01-04 } into each st 50 10:53: nostril. Hospita mcg/actuati 47 l on nasal spray cranberry Yes by NOT [facility] i 400 mg 01-[address] capsule 10:53: route. Hospita 47 l Lactobacill Yes Take by [facility] us 8-[address] acidophilus 10:53: Hospit a (PROBIOTIC) 47 l 10 billion cell capsule linaCLOtide Yes 145ug Take 145 U nivers (LINZESS) 5-30 mcg by ity of 145 mcg 00:00: mouth. [place] capsule Medical Branch linaCLOtide Yes 145ug Take 145 U nivers (LINZESS) 5-30 mcg by ity of 145 mcg 00:00: mouth. [place] capsule Medical Branch linaCLOtide Yes 145ug Take 145 U nivers (LINZESS) 5-30 mcg by ity of 145 mcg 00:00: mouth. [place] capsule Medical Branch linaCLOtide Yes 145ug Take 145 U nivers (LINZESS) 5-30 mcg by ity of 145 mcg 00:00: mouth. [place] capsule Medical Branch linaCLOtide Yes 145ug Take 145 U nivers (LINZESS) 5-30 mcg by ity of 145 mcg 00:00: mouth. [place] capsule Medical Branch linaCLOtide Yes 145ug Take 145 U nivers (LINZESS) 5-30 mcg by ity of 145 mcg 00:00: mouth. [place] capsule Medical Branch linaCLOtide Yes 145ug Take 145 U nivers (LINZESS) 5-30 mcg by ity of 145 mcg 00:00: mouth. [place] capsule Medical Branch linaCLOtide 2018-0 Yes 145ug Take 145 U nivers (LINZESS) 5-30 mcg by ity of 145 mcg 00:00: mouth. [place] capsule 00 Medical Branch linaCLOtide Yes 145ug Take 145 U nivers (LINZESS) 5-30 mcg by ity of 145 mcg 00:00: mouth. [place] capsule 00 Medical Branch linaCLOtide Yes 145ug Take 145 U nivers (LINZESS) 5-30 mcg by ity of 145 mcg 00:00: mouth. [place] capsule 00 Medical Branch linaCLOtide Yes 145ug Take 145 U nivers (LINZESS) 5-30 mcg by ity of 145 mcg 00:00: mouth. [place] capsule 00 Medical Branch linaCLOtide Yes 145ug Take 145 U nivers (LINZESS) 5-30 mcg by ity of 145 mcg 00:00: mouth. [place] capsule 00 Medical Branch linaCLOtide Yes 145ug Take 145 U nivers (LINZESS) 5-30 mcg by ity of 145 mcg 00:00: mouth. [place] capsule 00 Medical Branch linaCLOtide Yes 145ug Take 145 U nivers (LINZESS) 5-30 mcg by ity of 145 mcg 00:00: mouth. [place] capsule 00 Medical Branch linaCLOtide Yes 145ug Take 145 U nivers (LINZESS) 5-30 mcg by ity of 145 mcg 00:00: mouth. [place] capsule 00 Medical Branch linaCLOtide Yes 145ug Take 145 U nivers (LINZESS) 5-30 mcg by ity of 145 mcg 00:00: mouth. [place] capsule 00 Medical Branch linaCLOtide Yes 145ug Take 145 U nivers (LINZESS) 5-30 mcg by ity of 145 mcg 00:00: mouth. [place] capsule 00 Medical Branch linaCLOtide Yes 145ug Take 145 U nivers (LINZESS) 5-30 mcg by ity of 145 mcg 00:00: mouth. [place] capsule 00 Medical Branch linaCLOtide 0 Yes 145ug Take 145 U nivers (LINZESS) 5-30 mcg by ity of 145 mcg 00:00: mouth. [place] capsule 00 Medical Branch linaCLOtide Yes 145ug Take 145 U nivers (LINZESS) 5-30 mcg by ity of 145 mcg 00:00: mouth. [place] capsule Medical Branch linaCLOtide Yes 145ug Take 145 U nivers (LINZESS) 5-30 mcg by ity of 145 mcg 00:00: mouth. [place] capsule [facility] Branch linaclotide Yes 145ug QD Take 1 Met hodi (LINZESS) 5-[address] 145 mcg 00:00: (145 mcg Hospit a capsule 00 total) by l mouth daily before breakfast. linaCLOtide 2022- No 145ug Take 145 Univers (LINZESS) 5-30 02-08 mcg by ity of 145 mcg 00:00: 00:00 mouth. [place] capsule 00 :00 [facility] Branch linaCLOtide 2022- No 145ug Take 145 Univers (LINZESS) 5-30 02-08 mcg by ity of 145 mcg 00:00: 00:00 mouth. [place] capsule 00 :00 [facility] Branch azithromyci Yes ZPK [facility] n 5- st (ZITHROMAX) 00:00: Hospit a 250 MG 00 l tablet acetaminoph Yes TK 1 T PO M [facility] en-codeine 5-[address] (TYLENOL 00:00: [facility]ospita WITH 00 l CODEINE #3) 300-30 mg per tablet LYRICA 75 Yes [facility] mg capsule 3-26 [facility] 00:00: [facility]ospita 00 l furosemide Yes TK 1 T PO Me [facility]odi (LASIX) 20 3-[address] mg tablet 00:00: EDEMA. IF Hos jose 00 EDEMA l IMPROVES THEN CAN TK 1 T PO D PRN butalbital- Yes [facility] acetaminoph 2-22 st en-caff 00:00: Hospita (FIORICET, 00 l ESGIC) 50-325-40 mg per tablet ondansetron Yes [facility] (ZOFRAN) 4 2-21 st MG tablet 00:00: Hospita 00 l ADVAIR 0 Yes [facility] DISKUS 2-21 st 500-50 00:00: Hospita mcg/dose 00 l DISKUS albuterol 2016-05 Yes 2{puff} Inhale 2 U nivers (PROAIR 1-30 Puffs. ity of HFA) 90 00:00: [place] mcg/actuati 00 Medical on inhaler Branch albuterol 2016-05 Yes 2{puff} Inhale 2 U nivers (PROAIR 1-30 Puffs. ity of HFA) 90 00:00: [place] mcg/actuati 00 Medical on inhaler Branch albuterol 2016-05 Yes 2{puff} Inhale 2 U nivers (PROAIR 1-30 Puffs. ity of HFA) 90 00:00: [place] mcg/actuati 00 Medical on inhaler Branch albuterol 2016-05 Yes 2{puff} Inhale 2 U nivers (PROAIR 1-30 Puffs. ity of HFA) 90 00:00: [place] mcg/actuati 00 Medical on inhaler Branch estradiol 2016-05 Yes 2mg Take 2 mg Met hodi (ESTRACE) 2 1-[address] MG tablet 00:00: Hospita 00 l montelukast 2016-05 Yes 10mg Take 10 mg Methodi (SINGULAIR) 1-[address] 10 mg 00:00: Hospita tablet 00 l omeprazole 2016-05 Yes 20mg Take 20 mg M ethodi (PriLOSEC) 1-[address] 20 MG 00:00: Hospita capsule 00 l albuterol 2016-05- No 2{puff} Inhale 2 Univers (PROAIR 1-30 11-14 Puffs. ity of HFA) 90 00:00: 00:00 [place] mcg/actuati 00 :00 Medical on inhaler Branch albuterol 2016-05- No 2{puff} Inhale 2 Univers (PROAIR 1-30 11-14 Puffs. ity of HFA) 90 00:00: 00:00 [place] mcg/actuati 00 :00 Medical on inhaler Branch albuterol 2016-05- No 2{puff} Inhale 2 Univers (PROAIR 1-30 11-14 Puffs. ity of HFA) 90 00:00: 00:00 [place] mcg/actuati 00 :00 Medical on inhaler Branch albuterol 2016-05- No 2{puff} Inhale 2 Univers (PROAIR 1-30 11-14 Puffs. ity of HFA) 90 00:00: 00:00 [place] mcg/actuati 00 :00 Medical on inhaler Branch DULoxetine Yes 30mg Take 30 mg M ethodi (CYMBALTA) 9-[address] 30 MG 00:00: Hospita capsule 00 l solifenacin 2015-05 Yes Method i (VESICARE) 1-17 st 10 MG 00:00: Hospita tablet 00 l amitriptyli 2015-05 Yes Method i ne (ELAVIL) 1-17 st 25 MG 00:00: Hospita tablet 00 l cyclobenzap 2015-05 Yes TAKE 1 Meth merlyn rine 1-[address] (FLEXERIL) 00:00: TIMES A [facility] 10 mg 00 DAY l tablet ranitidine Yes 300mg Take 300 Me thodi (ZANTAC) 8-[address] 300 MG 00:00: mouth. Hospita tablet 00 l cetirizine Yes 10mg Take 10 mg M ethodi (ZyrTEC) 10 8-[address] MG tablet 00:00: Hospita 00 l albuterol Yes 2{puff} Inhale 2 M ethodi (PROAIR 8-[address] HFA,PROVENT 00:00: Hospit a [place] 00 [place] HFA,VENTOLI N HFA) 90 mcg/actuati on inhaler [...] us pen al injector injector injector [facility] Outre[facility] Program cetirizine cetirizine No cetirizine [...] mg d a extended extended tablet, Epis endoscopy technician release release extended al release Health Outreac [...] mg d a tablet tablet tablet [facility] pregabalin pregabalin No [...] 300 mg da tablet tablet tablet [facility] solifenacin solifenacin No solifenaci [place] 10 mg 10 mg n 10 mg da tablet tablet tablet [facility] Immunizations Ordered Filled Immunization Date Status Comments [facility] e Immunization Name Name Pneumococcal 20 2022-03-28 Completed Universit y of Conjugate, PCV20 00:00:00 [facility] dical (Prevnar 20) Branch Influenza Virus 2022-03-28 Completed Universit y of Vaccine Quad IM, 00:00:00 [facility] dical Preserv and ABX Branch Free 6 MO-64 YRS Pneumococcal 20 2022-03-28 Completed Universit y of Conjugate, PCV20 00:00:00 [facility] dical (Prevnar 20) Branch Influenza Virus 2022-03-28 Completed Universit y of Vaccine Quad IM, 00:00:00 [facility] dical Preserv and ABX Branch Free 6 MO-64 YRS Pneumococcal 20 2022-03-28 Completed Universit y of Conjugate, PCV20 00:00:00 [facility] dical (Prevnar 20) Branch Influenza Virus 2022-03-28 Completed Universit y of Vaccine Quad IM, 00:00:00 [facility] dical Preserv and ABX Branch Free 6 MO-64 YRS Pneumococcal 20 2022-03-28 Completed Universit y of Conjugate, PCV20 00:00:00 [facility] dical (Prevnar 20) Branch Influenza Virus 2022-03-28 Completed Universit y of Vaccine Quad IM, 00:00:00 [facility] dical Preserv and ABX Branch Free 6 MO-64 YRS Pneumococcal 20 2022-03-28 Completed Universit y of Conjugate, PCV20 00:00:00 [facility] dical (Prevnar 20) Branch Influenza Virus 2022-03-28 Completed Universit y of Vaccine Quad IM, 00:00:00 [place] dical Preserv and ABX Branch Free 6 MO-64 YRS Pneumococcal 20 2022-03-28 Completed Universit y of Conjugate, PCV20 00:00:00 [facility] dical (Prevnar 20) Branch Influenza Virus 2022-03-28 Completed Universit y of Vaccine Quad IM, 00:00:00 [facility] dical Preserv and ABX Branch Free 6 MO-64 YRS Pneumococcal 20 2022-03-28 Completed Universit y of Conjugate, PCV20 00:00:00 [facility] dical (Prevnar 20) Branch Influenza Virus 2022-03-28 Completed Universit y of Vaccine Quad IM, 00:00:00 [facility] dical Preserv and ABX Branch Free 6 MO-64 YRS Pneumococcal 20 2022-03-28 Completed Universit y of Conjugate, PCV20 00:00:00 [facility] dical (Prevnar 20) Branch Influenza Virus 2022-03-28 Completed Universit y of Vaccine Quad IM, 00:00:00 [facility] dical Preserv and ABX Branch Free 6 MO-64 YRS Pneumococcal 20 2022-03-28 Completed Universit y of Conjugate, PCV20 00:00:00 [facility] dical (Prevnar 20) Branch Influenza Virus 2022-03-28 Completed Universit y of Vaccine Quad IM, 00:00:00 [facility] dical Preserv and ABX Branch Free 6 MO-64 YRS Pneumococcal 20 2022-03-28 Completed Universit y of Conjugate, PCV20 00:00:00 [facility] dical (Prevnar 20) Branch Influenza Virus 2022-03-28 Completed Universit y of Vaccine Quad IM, 00:00:00 [facility] dical Preserv and ABX Branch Free 6 MO-64 YRS Pneumococcal 20 2022-03-28 Completed Universit y of Conjugate, PCV20 00:00:00 [facility] dical (Prevnar 20) Branch Influenza Virus 2022-03-28 Completed Universit y of Vaccine Quad IM, 00:00:00 [facility] dical Preserv and ABX Branch Free 6 MO-64 YRS Pneumococcal 20 2022-03-28 Completed Universit y of Conjugate, PCV20 00:00:00 [facility] dical (Prevnar 20) Branch Influenza Virus 2022-03-28 Completed Universit y of Vaccine Quad IM, 00:00:00 [place] Me dical Preserv and ABX Branch Free 6 MO-64 YRS Pneumococcal 20 2022-03-28 Completed Universit y of Conjugate, PCV20 00:00:00 [facility] dical (Prevnar 20) Branch Influenza Virus 2022-03-28 Completed Universit y of Vaccine Quad IM, 00:00:00 [facility] dical Preserv and ABX Branch Free 6 MO-64 YRS Pneumococcal 20 2022-03-28 Completed Universit y of Conjugate, PCV20 00:00:00 [place] Me dical (Prevnar 20) Branch Influenza Virus 2022-03-28 Completed Universit y of Vaccine Quad IM, 00:00:00 [facility] dical Preserv and ABX Branch Free 6 MO-64 YRS Pneumococcal 20 2022-03-28 Completed Universit y of Conjugate, PCV20 00:00:00 [facility] dical (Prevnar 20) Branch Influenza Virus 2022-03-28 Completed Universit y of Vaccine Quad IM, 00:00:00 [facility] dical Preserv and ABX Branch Free 6 MO-64 YRS Pneumococcal 20 2022-03-28 Completed Universit y of Conjugate, PCV20 00:00:00 [facility] dical (Prevnar 20) Branch Influenza Virus 2022-03-28 Completed Universit y of Vaccine Quad IM, 00:00:00 [facility] dical Preserv and ABX Branch Free 6 MO-64 YRS Pneumococcal 20 2022-03-28 Completed Universit y of Conjugate, PCV20 00:00:00 [facility] dical (Prevnar 20) Branch Influenza Virus 2022-03-28 Completed Universit y of Vaccine Quad IM, 00:00:00 [facility] dical Preserv and ABX Branch Free 6 MO-64 YRS Pneumococcal 20 2022-03-28 Completed Universit y of Conjugate, PCV20 00:00:00 [facility] dical (Prevnar 20) Branch Influenza Virus 2022-03-28 Completed Universit y of Vaccine Quad IM, 00:00:00 [facility] dical Preserv and ABX Branch Free 6 MO-64 YRS Pneumococcal 20 2022-03-28 Completed Universit y of Conjugate, PCV20 00:00:00 [facility] dical (Prevnar 20) Branch Influenza Virus 2022-03-28 Completed Universit y of Vaccine Quad IM, 00:00:00 [facility] dical Preserv and ABX Branch Free 6 MO-64 YRS Pneumococcal 20 2022-03-28 Completed Universit y of Conjugate, PCV20 00:00:00 [facility] dical (Prevnar 20) Branch Influenza Virus 2022-03-28 Completed Universit y of Vaccine Quad IM, 00:00:00 [facility] dical Preserv and ABX Branch Free 6 MO-64 YRS Pneumococcal 20 2022-03-28 Completed Universit y of Conjugate, PCV20 00:00:00 [facility] dical (Prevnar 20) Branch Influenza Virus 2022-03-28 Completed Universit y of Vaccine Quad IM, 00:00:00 [facility] dical Preserv and ABX Branch Free 6 MO-64 YRS Influenza Virus 2022-03-27 Completed Universit y of Vaccine 00:00:00 [facility] Influenza Virus 2022-03-27 Completed Universit y of Vaccine 00:00:00 [facility] Influenza Virus 2022-03-27 Completed Universit y of Vaccine 00:00:00 [facility] Influenza Virus 2022-03-27 Completed Universit y of Vaccine 00:00:00 [facility] Influenza Virus 2022-03-27 Completed Universit y of Vaccine 00:00:00 [facility] Influenza Virus 2022-03-27 Completed Universit y of Vaccine 00:00:00 [facility] Influenza Virus 2022-03-27 Completed Universit y of Vaccine 00:00:00 [facility] Influenza Virus 2022-03-27 Completed Universit y of Vaccine 00:00:00 [facility] Influenza Virus 2022-03-27 Completed Universit y of Vaccine 00:00:00 [facility] Influenza Virus 2022-03-27 Completed Universit y of Vaccine 00:00:00 [facility] Influenza Virus 2022-03-27 Completed Universit y of Vaccine 00:00:00 [facility] Influenza Virus 2022-03-27 Completed Universit y of Vaccine 00:00:00 [facility] Influenza Virus 2022-03-27 Completed Universit y of Vaccine 00:00:00 [facility] Influenza Virus 2022-03-27 Completed Universit y of Vaccine 00:00:00 [facility] Influenza Virus 2022-03-27 Completed Universit y of Vaccine 00:00:00 [facility] Influenza Virus 2022-03-27 Completed Universit y of Vaccine 00:00:00 [facility] Influenza Virus 2022-03-27 Completed Universit y of Vaccine 00:00:00 [facility] Influenza Virus 2022-03-27 Completed Universit y of Vaccine 00:00:00 [facility] Influenza Virus 2022-03-27 Completed Universit y of Vaccine 00:00:00 [facility] Influenza Virus 2022-03-27 Completed Universit y of Vaccine 00:00:00 [facility] Influenza Virus 2022-03-27 Completed Universit y of Vaccine 00:00:00 [facility] Vital Signs Vital Name Observation Time Observation Value Comments Source Systolic blood 2022-06-22 19:09:00 146 mm[Hg] Univer sity of pressure [facility] Diastolic blood 2022-06-22 19:09:00 78 mm[Hg] Unive rsity of pressure [facility] Heart rate 2022-06-22 19:09:00 53 /min Universi ty [facility] Respiratory rate 2022-06-22 19:09:00 12 /min [facility] Body height 2022-06-22 19:09:00 157.5 cm Universi ty [facility] Body weight 2022-06-22 19:09:00 108.863 kg Universi ty [facility] BMI 2022-06-22 19:09:00 43.90 kg/m2 [facility] Oxygen saturation in 2022-06-22 19:09:00 98 /min [facility] Arterial blood by [facility] Pulse oximetry [place] Body height 2022-05-18 16:54:00 157.5 cm Universi ty [facility] Systolic blood 2022-04-01 17:07:00 157 mm[Hg] Univer sity of pressure [facility] Diastolic blood 2022-04-01 17:07:00 93 mm[Hg] Unive rsity of pressure [facility] Heart rate 2022-04-01 17:05:00 94 /min Universi ty [facility] Body temperature 2022-04-01 17:05:00 36.44 Zoe Univ ersity of [facility] Respiratory rate 2022-04-01 17:05:00 18 /min Univ ersity of [place] [facility] Body height 2022-04-01 17:05:00 157.5 cm [facility]i ty [facility] [place] [facility] Body weight 2022-04-01 17:05:00 108.863 kg [facility]i ty [facility] [place] [facility] BMI 2022-04-01 17:05:00 43.90 kg/m2 [facility]i ty [facility] [place] [facility] Oxygen saturation in 2022-04-01 17:05:00 95 /min University of Arterial blood by [facility] Pulse oximetry Branch Systolic blood 2022-03-28 14:22:00 153 mm[Hg] Univer sity of pressure [facility] Diastolic blood 2022-03-28 14:22:00 93 mm[Hg] Unive rsity of pressure [facility] Heart rate 2022-03-28 14:19:00 87 /min [facility]i ty [facility] [place] [facility] Body temperature 2022-03-28 14:19:00 36.5 Zoe Univ ersity [facility] [place] [facility] Respiratory rate 2022-03-28 14:19:00 18 /min Univ ersity [facility] [place] [facility] Body height 2022-03-28 14:19:00 157.5 cm [facility]i [facility] [place] [facility] Body weight 2022-03-28 14:19:00 110.496 kg [facility] [place] [facility] BMI 2022-03-28 14:19:00 44.56 kg/m2 [facility] [place] [facility] Oxygen saturation in 2022-03-28 14:19:00 97 /min University of Arterial blood by [facility] Pulse oximetry Branch Systolic blood 2021-12-17 20:10:00 161 mm[Hg] Univer sity of pressure [facility] Diastolic blood 2021-12-17 20:10:00 89 mm[Hg] Unive rsity of pressure [facility] Heart rate 2021-12-17 20:10:00 89 /min [facility]i ty [facility] [place] [facility] Respiratory rate 2021-12-17 20:10:00 18 /min Univ ersity of [place] [facility] Body temperature 2021-12-17 18:46:00 36.89 Zoe Univ ersity [facility] [place] [facility] Body height 2021-12-17 18:46:00 157.5 cm [facility]i ty [facility] [place] [facility] Body weight 2021-12-17 18:46:00 108.863 kg [facility] BMI 2021-12-17 18:46:00 43.90 kg/m2 [facility] Oxygen saturation in 2021-12-17 18:46:00 96 /min [facility] blood by [facility] Pulse oximetry Branch BP Diastolic 2020-01-30 00:00:00 106 mm[Hg] [place] [facility] Height 2020-01-30 00:00:00 62 [in_i] [place] [facility] BMI (Body Mass 2020-01-30 00:00:00 45 kg/m2 [facility] [place]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 Branch FLU VACC ([id number]), 6 2022-03-28 15:23:41 Liseth Aj U [facility] MO-64 YRS, .5ML, IM, Medical Bra nch QUAD (FLUCELVAX) PNEUMOCOCCAL 20 2022-03-28 15:23:41 Liseth Aj [facility] CONJUGATE (PREVNAR 20) Medical B ranch VACCINE REFERRAL- 2021-12-31 05:01:00 Doctor Unassigned, No [facility] REQUEST/RESPONSE Name Medical Branch MAMMO, screening, 2020-01-30 00:00:00 [place] [facility] Hysteroscopy 2008-01-30 00:00:00 Darryl Ep iscopal [facility] Delivery 2004-06-08 00:00:00 [place] [facility] Delivery 2002-07-17 00:00:00 [place] [facility] Procedure on [place] Episco pal Gallbladder [facility] Removal of Ovarian [place] Epi scopal Cyst(s) Health Outreach Program Plan of Care Planned Activity Planned Date Details Comments Source Future Scheduled Test 2022-06-22 COVID-19 VACCINE [facility] 12:40:25 (#1) [code = COVID-19 VACCINE (#1)] Future Scheduled Test 2022-06-22 Screening for [facility] 12:40:25 malignant neoplasm of cervix (procedure) [code = 788724476] Future Scheduled Test 2022-06-22 BREAST CANCER [facility] 12:40:25 SCREENING [code = BREAST CANCER SCREENING] Future Scheduled Test 2022-06-22 INFLUENZA VACCINE [facility] 12:40:25 [code = INFLUENZA VACCINE] Diagnostic Test 2020-01-30 pap, IG + reflex HR [place] [facility] Pending 00:00:00 HPV [code = pap, IG Health O utreach + reflex HR HPV] Program Diagnostic Test 2020-01-30 bacterial vaginosis [place] [facility] Pending 00:00:00 + vaginitis panel, Health [facility] [place] vaginal [code = Program bacterial vaginosis + vaginitis panel, vaginal] Encounters Start End Encounter Admission Attending Care Care Encounter Source Date/Time Date/Time Type Type Clinicians Facility Department ID 2021-03-14 [facility] KATHIE [id number] Univers 00:47:33 LLUVIA [facility] 2021-03-13 Emergency [facility] [id number] Univers 15:25:17 [facility] 2022-07-01 2022-07-01 Outpatient R ZBINGIEW [facility] [id number] Univers 10:30:00 10:30:00 ABRAHAM [facility] [place] [facility] 2022-07-01 2022-07-01 Patient Herson [facility] [id number] Univers 00:00:00 00:00:00 Secure Msg Napolessorayalouierocío SOODMIKE [id number] [facility] [id number] [place] [phone] [address] 2022-06-29 2022-06-29 Telephone Cheikh [facility] [id number] Univers 00:00:00 00:00:00 Dheeraj FRAIRE [id number] i ty of [id number] PROF[place] [id number] [address] 2022-06-29 2022-06-29 Telephone [facility] [id number] Univers 00:00:00 00:00:00 Abraham BOWMAN [id number] ity of [id number] [id number] [facility] [address] [place] [facility] 2022-06-28 2022-06-28 Outpatient R LISETH AJ [facility] [id number] Univers 15:30:00 15:30:00 LISETH AJ ity of [facility] 2022-06-22 2022-06-22 Office [facility] [id number] Univers 13:00:00 13:30:00 Visit Diomedes BOWMAN [id number] ity of [id number] [id number] [facility] [address] [place] [facility] 2022-06-22 2022-06-22 Outpatient R PARISH [facility] [id number] Univers 13:00:00 13:00:00 DIOMEDES bazan o f [facility] 2022-06-17 2022-06-17 Telephone [facility] 1.2.840.114 [id number] Univers 00:00:00 00:00:00 Liseth FRAIRE [id number] ity of [id number] [id number] [address] 2022-06-06 2022-06-06 Refill [facility] [id number] Univers 00:00:00 00:00:00 Liseth FRAIRE [id number] ity of [id number] [phone] Az dical NAL [address] [facility] 2022-05-18 2022-05-18 [facility]patient [facility] [id number] Univers 11:00:00 11:57:17 NORBERT [facility] 2022-05-18 2022-05-18 Office Mirian Vaughn UNIVERSIT 1.2 .[id number] Univers 11:00:00 11:57:17 Visit Norbert Diego [facility] [id number] [facility] [id number] [id number] [address] 2022-05-18 2022-05-18 [facility]patient [facility] [id number] Univers 10:00:00 10:00:00 ABRAHAM [facility] 2022-04-27 2022-04-27 Outpatient R LISETH AJ [facility] [id number] Univers 13:30:00 13:30:00 LISETH AJ [facility] 2022-04-19 2022-04-19 Outpatient R MARIELA [facility] [id number] Univers 15:30:00 15:30:00 SHILPA [facility] 2022-04-11 2022-04-11 Refjackie [facility] [id number] Univers 00:00:00 00:00:00 Liseth FRAIRE [id number] ity of [id number] [phone] Az dical NAL [address] [place] [address] 2022-04-11 2022-04-11 Refill [facility] [id number] Univers 00:00:00 00:00:00 Ogechukwu [place] [id number] ity of [place] [id number] PROF[place] [id number] Az dical NAL [address] [place] [address] 2022-04-05 2022-04-05 Outpatient [facility] [id number] Univers 15:00:00 15:00:00 ABRAHAM it of [facility] 2022-04-01 2022-04-01 Outpatient R ERICA AJALISON [facility] [id number] Univers 11:00:00 11:46:57 MARITZA AJLouieRocío ity [facility] 2022-04-01 2022-04-01 Office [facility] 1.2.840.114 [id number] Univers 11:00:00 11:46:57 Visit Liseth FRAIRE [id number] ity of [place] [id number] [id number] Az dicarturo SALAMANCA [address] [place] [address] 2022-03-31 2022-03-31 Outpatient R DELTA [facility] [id number] Univers 10:15:00 10:15:00 JEFFY [facility] 2022-03-31 2022-03-31 Patient Herson [facility] 1.2.840.114 [id number] Univers 00:00:00 00:00:00 Secure Msg Liseth STEPHENSON [id number] ity of [place] [id number] [id number] Az dicarturo SALAMANCA [address] [place] [address] 2022-03-30 2022-03-30 Telephone Herson [facility] [id number] Univers 00:00:00 00:00:00 [facility] [id number] ity of [place] [id number] [place] as PIERRE?BLEA [phone] Az dicarturo KNEY [address] [place] [address] MEDICAL OFFICE BUILDING 2022-03-28 2022-03-28 Plate Mounter 2, Adc Lab [facility] 1.2.840.114 [id number] Univers 10:45:00 11:00:00 Visit Liseth Aj 350.1.13.1 0 ity of [place] [id number] [id number] Az dicarturo NAL [address] [facility] 2022-03-28 2022-03-28 Outpatient R LISETH AJ [facility] [id number] Univers 08:00:00 09:30:24 LISETH AJ ity [facility] 2022-03-28 2022-03-28 Office Herson [facility] [id number] Univers 08:00:00 09:30:24 Visit Liseth FRAIRE [id number] ity of [id number] [phone] Az dic[address] 2022-03-28 2022-03-28 Telephone [facility] [id number] Univers 00:00:00 00:00:00 Liseth FRAIRE [id number] ity of [id number] [id number] Az dic[address] 2022-03-04 2022-03-04 Outpatient R ADRIANNE [facility] [id number] Univers 12:00:00 12:00:00 ANNABELLA bazan [facility] 2022-02-28 2022-02-28 Refill [facility] [id number] Univers 00:00:00 00:00:00 Abraham BOWMAN [id number] ity Faye [id number] [id number] [address] [facility] 2022-01-21 2022-01-21 Outpatient Hanane KELLER [facility] [id number] Univers 13:00:00 13:00:00 ABRAHAM bazan [facility] 2022-01-21 2022-01-21 Outpatient Hanane KELLER [facility] [id number] Univers 13:00:00 13:00:00 ABRAHAM bazan [facility] 2022-01-14 2022-01-14 Telephone Zbigniew [facility] 1.2.665.065 [id number] Univers 00:00:00 00:00:00 Abraham BOWMAN 350.1.13.10 ity [place] [phone] [facility] AND AARTI [address] DIABETES CLINIC 2021-12-31 2021-12-31 Orders Doctor DILLON 1.2.840.114 [id number] Univers 00:00:00 00:00:00 Only Unassigned, JOHN 350.1.13.10 ity of [address] [facility] 4.2.7.2.686 [place] as [phone] [facility] [address] Branch 2021-12-20 2021-12-20 Telephone [facility] 1.2.358.500 [id number] Univers 00:00:00 00:00:00 Abraham BOWMAN 350.1.13.10 ity of [place] 4.2.7.2.686 [facility] [place] [phone] [facility] AND [place] [address] DI[facility]ETES CLINIC 2021-12-17 2021-12-17 [facility]patient [facility] [id number] Univers 13:53:06 23:59:00 ABRAHAM itrachna of [facility] 2021-12-17 2021-12-17 [facility] 1.2.840.114 [id number] Univers 13:53:06 23:59:00 Encounter Abraham BOWMAN 350.1.13.10 ity of [place] 4.2.7.2.686 [facility] [place] [phone] [facility] AND [place] [address] DIABETES CLINIC 2021-12-17 2021-12-17 Office [facility] 1.2.840.114 [id number] Univers 14:00:00 14:30:00 Visit Abraham BOWMAN 350.1.13.10 ity of [place] 4.2.7.2.686 [facility] [place] [phone] [facility] AND AARTI [address] DIABETES CLINIC 2021-12-15 2021-12-15 Laboratory Only, Adc Test [facility] 1.2.840. 114 [id number] Univers 15:30:00 15:45:00 Only Abraham Keller 350.1.13. 10 ity of [place] [id number] [facility] 353 [address] 2021-12-15 2021-12-15 Outpatient R [facility] [id number] Univers 15:30:00 15:30:00 [facility] 2021-12-14 2021-12-14 Telephone [facility] 1.2.645.652 [id number] Univers 00:00:00 00:00:00 Abraham CHRISTIANSONPEC 350.1.13.10 [facility] 4.2.7.2.686 [facility] [place] [phone] [address] DIABETES CLINIC 2021-12-02 2021-12-02 Outpatient R [facility] [id number] Univers 14:30:00 14:30:00 [facility] 2021-11-29 2021-11-29 Outpatient R [facility] [id number] Univers 13:00:00 13:00:00 ABRAHAM [facility] 2021-11-08 2021-11-08 Refill [facility] 1.2.840.114 [id number] Univers 00:00:00 00:00:00 Abraham BOWMAN 350.1.13.10 [facility] 4.2.7.2.686 [facility] [place] [phone] [address] DIABETES CLINIC 2021-10-22 2021-10-22 Outpatient R [facility] [id number] Univers 11:00:00 11:11:35 ABRAHAM [facility] 2021-10-22 2021-10-22 Office [facility] 1..840.114 [id number] Univers 11:00:00 11:11:35 Visit Abraham BOWMAN 350.1.13.10 ity of Joselucero [place] 4.2.7.2.686 [facility] [place] [phone] [facility] AND [address] DIABETES CLINIC 2021-08-27 2021-08-27 Outpatient R [facility] [id number] Univers 12:57:20 23:59:00 ABRAHAM bazan [facility] 2021-08-27 2021-08-27 [facility] 1.2.840.114 [id number] Univers 12:57:20 23:59:00 Encounter Abraham BOWMAN 350.1.13.10 ity of [place].2.7.2.[place] [id number] [facility] [address] DI[facility]ES CLIN[facility] 2021-08-27 2021-08-27 Office [facility] 1.2.840.114 [id number] Univers 13:00:00 13:30:00 Visit Abraham BOWMAN 350.1.13.10 ity of [place].2.7.2.[place] [id number] [facility] [address] DI[facility]ES CLIN[facility] 2021-08-26 2021-08-26 Telephone [facility] 1.2.982.817 [id number] Univers 00:00:00 00:00:00 Abraham BOWMAN 350.1.13.10 ity of [place].2.[place] [id number] [address] DIABETES CLINIC 2021-08-25 2021-08-25 Laboratory Only, Adc Test [facility] 1.2.840. 114 [id number] Univers 15:00:00 15:15:00 Only Abraham Keller 350.1.13. 10 ity of [place] 4.2.7.2.686 [facility] [place] [phone] [place] [address] Branch 2021-08-25 2021-08-25 [facility] [id number] Univers 15:00:00 15:00:00 ABRAHAM itrachna of [facility] 2021-08-25 2021-08-25 Telephone [facility] 1.2.638.439 [id number] Univers 00:00:00 00:00:00 Abraham BOWMAN 350.1.13.10 ity of [place] [id number] [address] DIABETES CLINIC 2021-07-28 2021-07-28 Patient [facility] 1.2.840.114 [id number] Univers 00:00:00 00:00:00 Secure Msg Abraham CHRISTIANSONPEC 350.1.13.10 ity of [place].2.7.2.[place] [phone] [facility] [address] [facility]ES [facility] 2021-07-28 2021-07-28 Patient [facility] 1.2.840.114 [id number] Univers 00:00:00 00:00:00 Secure Msg Abraham BOWMAN 350.1.13.10 ity of [place] 4.2.7.2.686 [facility] [id number] [facility] [address] DI[facility]ES CLIN[facility] 2021-07-27 2021-07-27 Orders Doctor DILLON 1.2.840.114 [id number] Univers 00:00:00 00:00:00 Only Unassigned, JOHN 350.1.13.[address] [facility] 4.2.7.2.686 [facility] [id number] [facility] [address] 2021-07-19 2021-07-19 [facility] [id number] Univers 14:30:00 14:30:00 ABRAHAM bazan [facility] 2021-07-13 2021-07-13 Hospital Radiology [facility] 1.2.840.114 [id number] Univers 15:05:12 23:59:00 Encounter [place] 350.1.13.10 ity [facility] 4.2.7.2.686 [facility] [id number] [facility] [address] 2021-07-13 2021-07-13 Outpatient R RADIOLOGY [facility] [id number] Univers 15:04:33 15:04:00 ity of [facility] 2021-07-13 2021-07-13 [facility] Radiology [facility] 1.2.840.114 [id number] Univers 15:00:00 15:04:00 Encounter [place] 350.1.13.10 ity [facility] 4.2.7.2.686 [facility] [id number] [facility] [address] 2021-07-02 2021-07-02 Outpatient R [facility] [id number] Univers 15:00:00 15:00:00 ABRAHAM bazan [facility] 2021-06-30 2021-06-30 Telephone [facility] 1.2.283.647 [id number] Univers 00:00:00 00:00:00 Abraham BOWMAN 350.1.13.10 ity of [place] 4.2.7.2.686 [facility] [place] [id number] [address] [facility] 2021-06-29 2021-06-29 Outpatient Hanane KELLER [facility] [id number] Univers 15:00:00 15:00:00 ABRAHAM [facility] 2021-06-29 2021-06-29 Outpatient R ZBIGNIEW [facility] [id number] Univers 14:00:00 14:00:00 ABRAHAM [facility] 2021-06-24 2021-06-24 Telephone [facility] 1.2.612.423 [id number] Univers 00:00:00 00:00:00 Abraham BOWMAN 350.1.13.10 ity of Joselucero [place] 4.2.7.2.686 [facility] [place] [id number] [address] [facility] 2021-06-17 2021-06-17 Outpatient ADRIANNE Calabrese DAYS [id number] [facility] 07:15:00 07:15:00 Shanti [facility] 2021-06-01 2021-06-01 Inpatient ADRIANNE Calabrese RADI [id number] [facility] 13:37:00 13:37:00 Shanti 10 [facility] 2021-05-12 2021-05-12 Outpatient Hanane KELLER [facility] [id number] Univers 15:00:00 15:00:00 ABRAHAM [facility] 2021-05-12 2021-05-12 Outpatient Hanane KELLER [facility] [id number] Univers 15:00:00 15:00:00 ABRAHAM [facility] 2021-05-11 2021-05-11 Telephone Zbigniew [facility] 1.2.175.963 [id number] Univers 00:00:00 00:00:00 Abraham BOWMAN 350.1.13.10 ity of [place] 4.2.7.2.686 [facility] CENTER [id number] [address] [facility] 2021-05-10 2021-05-10 Laboratory Only, [facility] Test [facility] 1.2.840. 114 [id number] Univers 15:30:00 15:45:00 Only Abraham Keller SPECIALTY 350.1.13 .10 ity of CARE 4.2.7.2.686 [facility] s [place] AT [phone] Az uday KINSEY [facility] Branch [facility] 2021-05-10 2021-05-10 Outpatient R [facility] [id number] Univers 15:30:00 15:30:00 [facility] 2021-05-10 2021-05-10 Telephone [facility] 1.2.073.232 [id number] Univers 00:00:00 00:00:00 Abraham MULTISPEC 350.1.13.10 ity of [place] 4.2.7.2.686 [facility] s [place] [phone] [address] DIABETES CLINIC 2021-03-25 2021-03-25 Outpatient R [facility] [id number] Univers 15:30:00 15:59:51 ABRAHAM [facility] 2021-03-25 2021-03-25 Outpatient R [facility] [id number] Univers 15:30:00 15:59:51 [facility] 2021-03-25 2021-03-25 Office [facility] 1.2.840.114 [id number] Univers 15:19:47 15:59:51 Visit Abraham BOWMAN 350.1.13.10 ity of [place] 4.2.7.2.686 [facility] [place] [id number] [address] DIABETES CLINIC 2021-02-01 2021-02-01 Telephone [facility] 1.2.634.316 [id number] Univers 00:00:00 00:00:00 Abraham CHRISTIANSONPEC 350.1.13.10 ity of [place] 4.2.7.2.686 [facility] [place] [id number] [address] DIABETES CLINIC 2021-01-29 2021-01-29 [facility] 1.2.840.114 [id number] Univers 14:02:01 23:59:00 Encounter Abraham CHRISTIANSONPEC 350.1.13.10 ity of [place].2.[place].2.[place] [id number] [facility] AND [place] [address] DIABETES CLINIC 2021-01-29 2021-01-29 Outpatient R ZBIGNIEW [facility] [id number] Univers 14:00:00 14:00:00 ABRAHAM itrachna of [facility] 2021-01-29 2021-01-29 Office [facility] 1.2.840.114 [id number] Univers 12:42:51 13:12:51 Visit Abraham CHRISTIANSONPEC 350.1.13.10 ity of [place].2.7.2.[place] [id number] [facility] AND [place] [address] DIABETES CLINIC 2021-01-27 2021-01-27 Telephone [facility] 1.2.989.638 [id number] Univers 00:00:00 00:00:00 Abraham MULTISPEC 350.1.13.10 ity of [place].2.[place] [id number] [facility] AND [place] [address] DIABETES CLINIC 2021-01-27 2021-01-27 Telephone [facility] 1.2.639.112 [id number] Univers 00:00:00 00:00:00 Abraham MULTISPEC 350.1.13.10 ity of [place] 4.2.7.2.[place] [id number] [facility] AND [place] [address] DIABETES CLINIC 2021-01-20 2021-01-20 Refill [facility] 1.2.840.114 [id number] Univers 00:00:00 00:00:00 Abraham MULTISPEC 350.1.13.10 ity of [place] 4.2.7.2.686 [place] [id number] [facility] AND [place] [address] DIABETES CLINIC 2020-12-22 2020-12-22 Office [facility] 1.2.840.114 [id number] Univers 15:48:17 16:24:28 Visit Abraham MULTISPEC 350.1.13.10 ity of [place] 4.2.7.2.[place] [id number] [facility] [address] DI[facility]ETES CLINIC 2020-12-22 2020-12-22 Outpatient R [facility] [id number] Univers 16:00:00 16:00:00 ABRAHAM rachna [facility] 2020-12-22 2020-12-22 Orders Doctor DILLON 1.2.840.114 [id number] Univers 00:00:00 00:00:00 Only Unassigned, JOHN 350.1.13.10 ity of [address] [facility] 4.2.7.2.686 [place] as [id number] [facility] [address] 2020-11-16 2020-11-16 [facility] [id number] Univers 15:30:00 15:30:00 ABRAHAM bazan [facility] 2020-10-01 2020-10-01 Outpatient R PATRIZIA GIVENS [facility] [id number] Univers 09:00:00 09:00:00 beni [facility] 2020-09-28 2020-09-28 Telephone [facility] 1.2.605.227 [id number] Univers 00:00:00 00:00:00 Abraham BOWMAN 350.1.13.10 ity of [place] 4.2.7.2.686 [facility] CENTER [id number] [facility] [address] DIABETES CLINIC 2020-09-25 2020-09-25 [facility] 1.2.840.114 [id number] Univers 09:47:30 23:59:00 Encounter Abraham BOWMAN 350.1.13.10 ity of [place]2.[place].2.[place] [id number] [facility] [address] DIABETES CLINIC 2020-09-25 2020-09-25 Outpatient R [facility] [id number] Univers 09:30:00 09:30:00 ABRAHAM bazan [facility] 2020-09-15 2020-09-[address] [facility] 1.2.840.114 [id number] Univers 15:41:19 17:03:35 Visit Corazon SPECIALTY 350.1.13.10 ity of C[place] 4.2.[place].2.[place] AT [phone] Me uday [facility] 2020-09-15 2020-09-15 Office Neftali [facility] 1.2.840.114 [id number] 15:41:19 17:03:35 Visit Corazon SPECIALTY 350.1.13.10 CARE 4.2.7.2.686 CENTER AT [id number] AMELIE Burkett [facility] 2020-09-15 2020-09-15 Outpatient Hanane CASE [facility] [id number] Univers 16:00:00 16:00:00 [facility] 2020-09-15 2020-09-15 Letter [facility] 1.2.840.114 [id number] Univers 00:00:00 00:00:00 (Out) Corazon SPECIALTY 350.1.13.10 ity [facility] 4.2.7.2.[place] AT [phone] Az uday [facility] 2020-09-09 2020-09-09 Outpatient GC_BCSS_Isa PRIV PRIV [id number] [facility] 02:41:00 02:41:00 [id number] [id number] Medic al 2020-08-28 2020-08-28 Office [facility] 1.2.622.411 [id number] Univers 14:51:57 15:40:59 Visit Shanti UGALDE 350.1.13.10 it Antelmo [place] 4.2.7.2.686 [facility] CENTER AT [phone] Az uday [facility] 2020-08-28 2020-08-28 Outpatient R PORTIA [facility] [id number] Univers 15:20:00 15:20:00 SHANTI rachna [facility] 2020-08-25 2020-08-25 Outpatient Hanane KELLER [facility] [id number] Univers 15:00:00 15:00:00 ABRAHAM [facility] 2020-08-25 2020-08-25 Office [facility] 1.2.840.114 [id number] Univers 13:31:27 14:19:03 Visit Abraham BOWMAN 350.1.13.10 ity Faye [place].2.7.2.[place] [id number] [facility] AND [place] [address] DIABETES CLINIC 2020-08-25 2020-08-25 Orders Doctor DILLON 1.2.840.114 [id number] Univers 00:00:00 00:00:00 Only Unassigned, JOHN 350.1.13.10 ity of [place] [facility] 4.2.7.2.686 [place] as [phone] [facility] [address] 2020-08-18 2020-08-18 [facility] Rad[facility] 1.2.840.114 [id number] Univers 10:21:00 23:59:00 Encounter Gulliver 350.1.13.10 ity of [place] 4.2.7.2.686 [facility] [id number] [facility] [address] 2020-08-18 2020-08-18 [facility] Rad[facility] 1.2.840.114 [id number] Univers 10:20:16 10:20:16 Encounter Gulliver 350.1.13.10 ity of [place] 4.2.7.2.686 [facility] [id number] [facility] [address] 2020-08-18 2020-08-18 Outpatient R RADIOLOGY [facility] [id number] Univers 00:00:00 00:00:00 ity of [facility] 2020-08-11 2020-08-11 Office Margaret [facility] 1.2.840.114 [id number] Univers 08:49:01 09:04:01 Visit [facility] 350.1.13.10 it y of Surgical 4.2.7.2.686 [place] as Specialti [phone] Me dical es 198 [facility] 2020-08-11 2020-08-11 Outpatient R MARGARET [facility] [id number] Univers 08:45:00 08:45:00 MECCA ity of [facility] 2020-07-30 2020-07-30 Patient Bharat [facility] 1.2.840.114 [id number] Univers 00:00:00 00:00:00 Outreach Mario PRIMARY 350.1.13.10 i ty of [facility] 4.2.7.2.686 [facility] [phone] Me dical [address] 2020-07-29 2020-07-29 Telephone [facility] 1.2.331.233 [id number] Univers 00:00:00 00:00:00 Mecca Zee [facility] 350.1.13.10 it y of Surgical 4.2.7.2.686 [place] as Specialti [phone] Az dical es 198 [facility] 2020-07-23 2020-07-23 Office [facility] 1.2.840.114 [id number] Univers 13:35:47 13:50:47 Visit Mecca Zee [facility] 350.1.13.10 it y of Surgical 4.2.7.2.686 [place] as Specialti [id number] Az dical es 198 [facility] 2020-07-23 2020-07-23 Outpatient [facility] [id number] Univers 13:15:00 13:15:00 MECCA ity of [facility] 2020-07-13 2020-07-13 Hospital [facility] 1.2.840.114 [id number] Univers 08:35:00 12:55:00 Encounter Lluvia [place] 350.1.13.10 it[place]2.[place] [id number] [place] [address] [place] 2020-07-13 2020-07-13 Prep For [facility] 1.2.840.114 [id number] Univers 00:00:00 00:00:00 Surgery Lluvia Downing [facility] 350.1.13.10 it y of Surgical 4.2.7.2.686 [place] as Specialti [phone] Az dical es 198 [facility] 2020-07-13 2020-07-13 Orders Doctor DILLON 1.2.840.114 [id number] Univers 00:00:00 00:00:00 Only Unassigned, JOHN 350.1.13.10 ity of [place] [facility] 4.2.7.2.686 [place] as [id number] [facility] [address] 2020-07-10 2020-07-10 Plate Mounter Joseph, Adc Lab Main [facility] 1.2.8 40.114 [id number] Univers 07:55:11 08:10:11 Visit Lluvia Eugene Chang Fraire 350.1.13.10 ity of [place] 4.2.7.2.686 [facility] [phone] Az dical nal [address] 2020-07-10 2020-07-10 Laboratory Only, Adc Test [facility] 1.2.840. 114 [id number] Univers 07:52:18 08:07:18 Only Lluvia Eugene Chang Fra[place] 350.1.13.10 ity of [place] 4.2.7.2.686 [facility] [id number] [facility] [address] 2020-07-10 2020-07-10 Outpatient R VALORIE [facility] [id number] Univers 08:00:00 08:00:00 LLUVIA bazan [facility] 2020-07-10 2020-07-10 [facility] 1.2.840.114 [id number] Univers 07:54:19 07:54:19 Encounter Lluvia Fraire 350.1.13.10 ity of [place] 4.2.7.2.686 [facility] [id number] [facility] [address] 2020-07-08 2020-07-08 Hospital [facility] 1.2.840.114 [id number] Univers 14:02:27 23:59:00 Encounter Abraham BOWMAN 350.1.13.10 ity of Jose SHAKIRA 4.2.7.2.686 [facility] [id number] [facility] AARTI [address] DIABETES CLINIC 2020-07-08 2020-07-08 Outpatient R ZBIGNIEW [facility] [id number] Univers 14:30:00 14:30:00 ABRAHAM bazan [facility] 2020-07-06 2020-07-06 Telephone [facility] 1.2.997.793 [id number] Univers 00:00:00 00:00:00 Abraham BOWMAN 350.1.13.10 ity of Jose SHAKIRA 4.2.7.2.686 [facility] [id number] [facility] AND AARTI [address] DIABETES CLINIC 2020-07-01 2020-07-01 Outpatient R ZBIGNIEW [facility] [id number] Univers 11:00:00 11:00:00 ABRAHAM ity [facility] 2020-06-30 2020-06-30 Outpatient R PATRIZIA GIVENS [facility] [id number] Univers 15:00:00 15:00:00 ity of [facility] 2020-06-26 2020-06-26 Outpatient R ZBIGNIEW [facility] [id number] Univers 11:00:00 11:00:00 ABRAHAM ity [facility] 2020-06-24 2020-06-24 Hospital Radiology [facility] 1.2.840.114 [id number] Univers 09:23:53 23:59:00 Encounter Mary 350.1.13.10 ity [facility] 4.2.7.2.[address] [facility] [id number] [facility] [address] 2020-06-24 2020-06-24 Outpatient R RADIOLOGY [facility] [id number] Univers 00:00:00 00:00:00 ity of [facility] 2020-06-22 2020-06-22 Outpatient R EUGENE [facility] [id number] Univers 16:00:00 16:00:00 [facility] 2020-06-22 2020-06-22 Orders Doctor DILLON 1.2.840.114 [id number] Univers 00:00:00 00:00:00 Only Unassigned, JOHN 350.1.13.[address] [facility] 4.2.7.2.686 [facility] [id number] [facility] [address] 2020-06-16 2020-06-16 Outpatient R RADIOLOGY [facility] [id number] Univers 00:00:00 00:00:00 ity of [facility] 2020-06-12 2020-06-12 Hilario [facility] 1.2.468.458 [id number] Univers 00:00:00 00:00:00 Abraham BOWMAN 350.1.13.10 ity of [place] 4.2.7.2.686 [facility] [phone] [facility] [place] [address] [facility] 2020-06-09 2020-06-09 [facility] [id number] Univers 09:00:00 09:00:00 ABRAHAM ity of [facility] 2020-06-09 2020-06-09 Telephone [facility] [id number] Univers 00:00:00 00:00:00 Abraham COLBY [id number] ity [place] [id number] [address] [facility] 2020-06-04 2020-06-04 Telephone [facility] [id number] Univers 00:00:00 00:00:00 Abraham COLBY [id number] ity of [facility] 4.2.7.2.686 [facility] [place] [phone] [address] [facility] 2020-06-04 2020-06-04 Orders Doctor DILLON [id number] Univers 00:00:00 00:00:00 Only Unassigned, JOHN [id number] ity of [facility] 4.2.7.2.686 [place] as [id number] [address] 2020-05-29 2020-05-29 Telephone [facility] [id number] Univers 00:00:00 00:00:00 Abraham BOWMAN [id number] ity of [place]AN[place] 4[place] [id number] [address] [facility] 2020-05-29 2020-05-29 Orders Doctor CARRANZA 1.2.840.114 [id number] Univers 00:00:00 00:00:00 Only Unassigned, JOHN 350.1.13.10 ity of [place] 4.2.7.2.686 [place] as [phone] [address] 2020-05-20 2020-05-20 Emergency Willima Arias [facility] 1.2.840.114 [id number] Univers 14:06:00 15:03:00 Rhianna Fraire 350.1.13.10 i [place] [phone] [facility] [address] 2020-05-13 2020-05-13 Telephone [facility] 1.2.585.535 [id number] Univers 00:00:00 00:00:00 Abraham CHRISTIANSONPEC 350.1.13.10 ity of [place] [phone] [facility] AND [address] [facility] 2020-05-11 2020-05-11 Telephone [facility] [id number] Univers 00:00:00 00:00:00 Abraham MULTISPEC 350.1.13.10 ity of [place] IAY 4.2.7.2.68[facility] [place] [phone] [facility] AND [address] [facility] 2020-05-01 2020-05-01 Outpatient R [facility] [id number] Univers 15:00:00 15:00:00 ABRAHAM itrachna [facility] 2020-04-30 2020-04-30 Telephone [facility] [id number] Univers 00:00:00 00:00:00 Abraham CHRISTIANSONPEC 350.1.13.10 ity of [place] IALTY 4.2.7.2.68[facility] [place] [phone] [facility] AND [address] [facility] 2020-04-15 2020-04-15 Telephone [facility] [id number] Univers 00:00:00 00:00:00 Abraham CHRISTIANSONPEC 350.1.13.10 ity of [place] 4.2.7.2.686 [facility] [place] [phone] [address] [facility] 2020-03-31 2020-03-31 Office [facility] 1.2.840.114 [id number] Univers 14:19:33 15:05:49 Visit Abraham CHRISTIANSONPEC 350.1.13.10 ity of [place] 4.2.7.2.686 [facility] [place] [phone] [facility] AND [address] [facility] 2020-03-31 2020-03-31 Outpatient R [facility] [id number] Univers 14:30:00 14:30:00 ABRAHAM beni [facility] 2020-03-23 2020-03-23 Office Lluvia Eugene [facility] 1.2.840. 114 [id number] Univers 13:29:49 13:58:[address] [facility] 350.1.13.10 ity of Surgical 4.2.7.2.686 [place] as Specialti [phone] Az dical es 198 [facility] 2020-03-23 2020-03-23 [facility] [id number] Univers 13:45:00 13:45:00 MECCA [facility] 2020-03-19 2020-03-19 [facility] 1.2.840.114 [id number] Univers 15:40:47 23:59:00 Encounter Lluvia Fraire 350.1.13.10 ity of [place] 4.2.7.2.686 [facility] [phone] [facility] [address] 2020-03-19 2020-03-19 [facility] [id number] Univers 00:00:00 00:00:00 LLUVIA [facility] 2020-03-19 2020-03-19 Orders Doctor DILLON 1.2.840.114 [id number] Univers 00:00:00 00:00:00 Only Unassigned, JOHN 350.1.13.10 ity [facility] [place] [facility] 4.2.7.2.686 [place] as [id number] [address] 2020-03-03 2020-03-03 [facility] [id number] Univers 13:30:00 13:30:00 MECCA [facility] 2020-02-13 2020-02-13 Outpatient [facility] [id number] Univers 09:30:00 09:30:00 LLUVIA [facility] 2020-02-11 2020-02-11 Orders Doctor DILLON 1.2.840.114 [id number] Univers 00:00:00 00:00:00 Only Unassigned, JOHN 350.1.13.10 ity of [place] [facility] 4.2.7.2.686 [place] as [id number] [address] 2020-02-03 2020-02-03 Telephone [facility] 1.2.840.114 [id number] Univers 00:00:00 00:00:00 Lluvia [facility] 350.1.13.10 it y of Surgical 4.2.7.2.686 [place] as Specialti [phone] Az dical es 198 [facility] 2020-01-31 2020-01-31 [facility] 1.2.840.114 [id number] Univers 14:37:16 23:59:00 Encounter Abraham CHRISTIANSONPEC 350.1.13.10 it[place] [phone] [facility] [address] [facility] 2020-01-31 2020-01-31 Office Abraham [facility] 1.2.84 0.114 [id number] Univers 14:16:54 15:28:18 Visit Room, [facility] Anesthesia Pain Procedure MULTISPEC 350.1.13.10 ity of [place] [phone] [facility] AND AARTI [address] [facility] 2020-01-31 2020-01-31 Outpatient R [facility] [id number] Univers 14:30:00 14:30:00 [facility] 2020-01-30 2020-01-30 [facility] 1.2.840.114 [id number] Univers 14:01:42 23:59:00 Encounter Lluvia [facility] 350.1.13.10 ity of Surgical 4.2.7.2.686 [place] as Specialti [phone] Az dical es 809 [facility] 2020-01-30 2020-01-30 Office [facility] 1.2.287.616 [id number] Univers 13:11:22 14:17:27 Visit Lluvia [facility] 350.1.13.10 it y of Surgical 4.2.7.2.686 [place] as Specialti [phone] Me dical es 198 [facility] 2020-01-30 2020-01-[address] [facility] [id number] Univers 13:30:00 13:30:00 LLUVIA ity [facility] 2020-01-30 2020-01-30 Outpatient Ayeni_Ibito [facility]OP [id number] [place] 04:21:00 04:21:00 ye[facility]Olubu 98403 [facility] 2020-01-30 2020-01-30 Outpatient Ayeni_Ibito ME[facility] ME[facility]OP [phone] [place] 04:21:00 04:21:00 ye_Olubu 14780 [facility] 2020-01-30 2020-01-30 Olubukola OHHOP [place] - [id number] [place] 00:00:00 00:00:00 Becca Menendez MD: Yazidi Epi scop [id number] [facility] [address] [place] [address] , Ph. 2020-01-28 2020-01-28 Outpatient Ayeni_Ibito MEHOP MEHOP [phone] [place] 01:29:00 01:29:00 ye_Olshalomu 75891 [facility] 2020-01-24 2020-01-24 Orders Doctor DILLON 1.2.840.114 [id number] Univers 00:00:00 00:00:00 Only Unassigned, JOHN 350.1.13.10 ity of [place] [facility] 4.2.7.2.686 [place] as [phone] [address] 2020 2020 Outpatient Hanane SONI [facility] [id number] Univers 13:00:00 13:00:00 AGNES bazan [facility] 2020-01-09 2020-01-09 Outpatient Hanane SONI [facility] [id number] Univers 13:15:00 13:15:00 AGNES bazan [facility] 2019-12-31 2019-12-31 Outpatient Ayeni_Ibito MEHOP MEHOP [phone] [place] 02:26:00 02:26:00 ye_Olubu 00996 [facility] 2019-12-24 2019-12-24 Office [facility] 1.2.840.114 [id number] Univers 07:54:49 08:42:17 Visit Abraham BOWMAN 350.1.13.10 ity of [place] [id number] [facility] AND [address] [facility] 2019-12-24 2019-12-24 Outpatient [facility] [id number] Univers 08:00:00 08:00:00 ABRAHAM bazan of [facility] 2019-12-19 2019-12-19 Office [facility] 1.2.514.936 [id number] Univers 09:50:41 10:43:11 Visit Agnes Fraire 350.1.13.10 i ty of [place] [facility] [phone] Az dic[address] 2019-12-19 2019-12-19 Out[facility] [id number] Univers 10:00:00 10:00:00 AGNES lara [facility] 2019-12-19 2019-12-19 Orders Doctor DILLON 1.2.840.114 [id number] Univers 00:00:00 00:00:00 Only Unassigned, JOHN 350.1.13.10 ity [place] [facility] 4.2.7.2.686 [place] as [phone] [facility] [address] 2019-12-12 2019-12-12 Orders Doctor CARRANZA 1.2.840.114 [id number] Univers 00:00:00 00:00:00 Only Unassigned, JOHN 350.1.13.10 ity of [place] [facility] 4.2.7.2.686 [place] as [id number] [facility] [address] 2019-12-10 2019-12-10 Outpatient R CANDELARIA [facility] [id number] Univers 11:00:00 11:00:00 KELLY tyson [facility] 2019-12-02 2019-12-02 Orders Doctor DILLON Jones.2.840.114 [id number] Univers 00:00:00 00:00:00 Only Unassigned, JOHN 350.1.13.10 ity of [place] [facility] 4.2.7.2.686 [place] as [phone] [facility] [address] 2019-11-20 2019-11-20 Telephone [facility] [id number] [id number] Univers 00:00:00 00:00:00 Abraham MULTISPEC 350.1.13.10 [place]y [place] [phone] [facility] AND [address] [facility] 2019-11-11 2019-11-11 Telephone [facility] 1.2.704.822 [id number] Univers 00:00:00 00:00:00 Abraham MULTISPEC 350.1.13.10 [place]y [place] [id number] [facility] AND [address] [facility] 2019-08-08 2019-08-08 Refill [facility] 1.2.840.114 [id number] Univers 00:00:00 00:00:00 Abraham MULTISPEC 350.1.13.10 [place] [id number] [facility] AND [address] [facility] 2019-06-18 2019-06-18 Telephone [facility] 1.2.472.465 [id number] Univers 00:00:00 00:00:00 Madiha PRIMARY 350.1.13.10 it y of [place].2.[place] [id number] Az dicid [address] 2019-05-28 2019-05-28 Telephone [facility] 1.2.771.027 [id number] Univers 00:00:00 00:00:00 Abraham MULTISPEC 350.1.13.10 [place] [phone] [address] [facility]ES [facility] 2019-01-15 2019-01-15 Office [facility] 1.2.840.114 [id number] Univers 07:50:04 11:15:44 Visit Abraham CHRISTIANSONPEC 350.1.13.10 [place] [phone] [address] [facility] Results Test Description Test Time Test Comments Results Result Comments Source POCT FLU A AND B (MOLECULAR) 2022-04-01 20:23:00 Test Item Value Reference Range Interpretation Comme nts POCT INFLUENZA A (test code = 3840) Negative Negative - Negativ e POCT INFLUENZA B (test code = 3841) Negative Negative - Negativ e Lab Interpretation (test code = 05957-9) [facility]2022-04-01 20:23:00 Test Item Value Reference Range Interpretation Comments POCT INFLUENZA A (test code = Negative Negative - Negative 3840) POCT INFLUENZA B (test code = Negative Negative - Negative 3841) Lab Interpretation (test code = Normal 08350-4) [facility]- MRI LW JNT W/O CONT [id number] 07:52:00 [facility] 1980 Sex: F Patient Name: RACHEL SIMON Unit No: [id number] EXAMS: CPT CODE: [id number] MRI LW JNT W/[place] [address] MRI OF THE LEFT KNEE DIAGNOSIS: 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 Partial-thickness cartilage loss is seen with a small amount of joint fluid. No loose bodies are identified. COMMENT: COMPARISON: No prior exams avail able. Scans were performed in the sagittal, axial and coronal planes utilizing T1, spin density with fat saturation and T2-weighted pulse sequences. Chondromalacia is present as noted. A small subchondral cyst is seen in the patella. Medial and lateral menisci are within normal limits in signal and co nfiguration. No abnormality is seen involving the anterior or posterior cruciate or medial or lateral collateral ligaments. The quadriceps and patellar tendons are within normal limits in appearance. at 0752 Reported and signed by: Canelo Peña MD CC: Shanti [place] MD Technologist: NADEEM COLLADO MRI. Transcribed D/ (075) [facility] NAME: RACHEL SIMON [address] [facility] PHYS: Shanti Berg MD : 1980 AGE: 41 SEX: F [place] [address] LOC:Y.MRI PHONE #: [phone] EXAM DATE: 06/01/2021 STATUS: DEP CLI FAX #: [phone] RAD #: D/C DT PAGE 1 Signed Report Patient Name: RACHEL SIMON Unit No: [id number] EXAMS: CPT CODE: [id number] [place] LW JNT W/[place] [address] (Continued) Orig Print D/T: S: 06/02/2021 (075) [facility]: [facility] [address] [place] [address] PHYS: Shanti Berg MD : 1980 AGE: 41 SEX: F [place] [address] LOC: Y.MRI PHONE #: [phone] EXAM DATE: 06/01/2021 STATUS: DEP CLI FAX #: [phone] RAD #: D/C DT PAGE 2 Signed Report
[2022-07-01 19:26] LABS: Absolute Lymphocytes (CBC) 1.1 K/uL (0.7-4.9); Hematocrit 43.1 % (36.0-45.0); Lymphocytes % 14.9 % (15.3-44.8); MCV 89.6 fL (80-100); MPV 7.1 fL (7.6-11.3); RBC Red Blood Cell Count 4.82 M/uL (3.86-4.86)
[2022-07-01 19:27] LABS: Protime INR 1.08
[2022-07-01 19:47] LABS: Magnesium 2.1 mg/dL (1.6-2.4); Potassium 4.2 mmol/L (3.5-5.1); Troponin High Sensitivity 6.6 pg/mL (<58.9)
[2022-07-01] MEDS ORDERED: METHYLPREDNISOLONE 125 MG INJ ONE (20:36)
[2022-07-01] MEDS ORDERED: ACETAMINOPHEN 500 MG TAB ONE (20:37)
[2022-07-01] MEDS ORDERED: METOCLOPRAMIDE 10 MG/2mL INJ ONE (20:54)
[2022-07-01] MEDS ORDERED: MORPHINE 4 MG/ML SYR ONE (20:55)
[2022-07-01 21:19] LABS: SARS-COV-2 RT PCR NEGATIVE (NEGATIVE)
--- NOTE | 2022-07-01 21:26 | RAD REPORT ---
EXAM DESCRIPTION: Stefan Single View07/01/2022 7:34 pm CLINICAL HISTORY: SOB COMPARISON: Chest Pa And Lat (2 Views) dated 07/09/2018 TECHNIQUE: Portable AP view of the chest. FINDINGS: No focal airspace opacities. Bronchial wall thickening and streaky central predominant mil d opacities suggestive of reactive airway changes or viral infection. No pneumothorax or effusion. Th e cardiomediastinal contours are unremarkable. IMPRESSION: Findings suggestive of reactive airway changes of viral infection, without evidence of f ocal consolidation.
--- NOTE | 2022-07-01 21:59 | EDPHYS ---
Physician Documentation [facility] Name: Eve Bernal Age: 42 yrs Sex: Female : 1980 Arrival Date: 07/01/2022 Time: 18:40 Bed 14 Private MD: ED Physician Real Shah HPI: 07/01 18:50 This 42 yrs old Female presents to ER via EMS with complaints of Shortness of Breath, cp Cough. 18:50 The patient or guardian reports cough, with no sputum, shortness of breath, chest pain. cp Onset: The symptoms/episode began/occurred gradually, and became worse today. Associated signs and symptoms: Pertinent positives: diarrhea, nausea, vomiting, Pertinent negatives:. Severity of symptoms: in the emergency department the symptoms are unchanged despite home interventions. Patient reports being prescribed Clindamycin and Medrol dose nimo for sinus infection and bronchitis by PCP yesterday. Today vomiting, diarrhea, shortness of breath. Patient admits to smoking about a pack/day, history of asthma. 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 - Social history:: Smoking status: Patient reports the use of cigarette tobacco products, smokes one pack cigarettes per day. ROS: 18:55 Constitutional: Positive for body aches, chills, Negative for fever, poor PO intake. cp 18:55 Eyes: Negative for injury, pain, redness, and discharge. cp 18:55 ENT: Negative for ear pain, difficulty swallowing, difficulty handling secretions. 18:55 Cardiovascular: Positive for chest pain, Negative for edema, palpitations. 18:55 Respiratory: Positive for cough, "sounds productive", shortness of breath. 18:55 Abdomen/GI: Positive for nausea and vomiting, diarrhea, Negative for abdominal pain. 18:55 : Negative for urinary symptoms. 18:55 Neuro: Positive for headache, Negative for altered mental status, weakness. 18:55 All other systems are negative. Exam: 19:00 Constitutional: The patient appears in no acute distress, alert, awake, cp non-diaphoretic, non-toxic, well developed, well nourished, obese. 19:00 Head/Face: Normocephalic, atraumatic. cp 19:00 Eyes: Periorbital structures: appear normal, Conjunctiva: normal, no exudate, no injection, Sclera: no appreciated abnormality, Lids and lashes: appear normal, bilaterally. 19:00 ENT: External ear(s): are unremarkable, Ear canal(s): are normal, clear, TM's: dullness, bilaterally, Nose: is normal, Mouth: Lips: moist, Oral mucosa: moist, Posterior pharynx: Airway: no evidence of obstruction, patent, Tonsils: no enlargement, no exudate, swelling, is not appreciated, erythema, that is mild, exudate, is not appreciated. 19:00 Neck: ROM/movement: is normal, is supple, without pain, no range of motions limitations, no meningismus, Lymph nodes: no appreciated lymphadenopathy. 19:00 Chest/axilla: Inspection: normal. 19:00 Cardiovascular: Rate: normal, Rhythm: regular, Edema: is not appreciated, JVD: is not appreciated. 19:00 Respiratory: the patient does not display signs of respiratory distress, Respirations: labored breathing, that is mild, intercostal retractions, are absent, Breath sounds: bronchial sounds, that are mild, are heard diffusely, decreased breath sounds, are not appreciated, rhonchi, are not appreciated, stridor, is not appreciated, wheezing: that is mild, is heard diffusely. 19:00 Abdomen/GI: Inspection: obese Palpation: abdomen is soft and non-tender, in all quadrants. 19:00 Back: pain, is absent, ROM is normal. 19:00 Skin: cellulitis, is not appreciated, no rash present. 19:00 Neuro: Orientation: to person, place \\T\\ time. Mentation: is normal, Motor: moves all fours, strength is normal, Sensation: is normal. 19:37 ECG was reviewed by the Attending Physician. Vital Signs: 18:45 BP 183 / 87; Pulse 94; Resp 18; Temp 98.1(O); Pulse Ox 100% on R/A; Weight 108.86 kg; ph Height 5 ft. 2 in. (157.48 cm); 19:52 BP 145 / 76; Pulse 108; Resp 19; Temp 98.0; Pulse Ox 97% on R/A; Pain 0/10; ke1 21:33 Pain 2/10; ke1 21:33 BP 151 / 71; Pulse 96; Resp 17; Pulse Ox 95% on R/A; ke1 18:45 Body Mass Index 43.90 (108.86 kg, 157.48 cm) ph MDM: 18:46 Patient medically screened. cp 19:00 Differential diagnosis: bronchitis, flu, pneumonia, cardiac arrythmia, bronchitis, cp respiratory failure, sepsis. 21:57 Antibiotic administration: Not indicated, the patient does not have an appreciated cp infiltrate. 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 Interpretation: acceptable, Plan: O2 by NC applied. Data reviewed: vital signs, nurses notes, lab test result(s), EKG, radiologic studies, plain films. Consideration of Admission/Observation Escalation of care including admission/observation considered. I considered the following discharge prescriptions or medication management in the emergency department Medications were administered in the Emergency Department. See MAR. Test considered but Not performed: CT: chest for pulmonary embolism. Care significantly affected by the following chronic conditions: Obesity, asthma. Counseling: I had a detailed discussion with the patient and/or guardian regarding: the historical points, exam findings, and any diagnostic results supporting the discharge/admit diagnosis, lab results, radiology results, the need for outpatient follow up, a family practitioner, to return to the emergency department if symptoms worsen or persist or if there are any questions or concerns that arise at home. Response to treatment: the patient's symptoms have markedly improved after treatment, and as a result, I will discharge patient. ED course: VSS. Will have patient stop Medrol dose nimo and start prednisone 40 mg daily for 5 days. Recommend nebulizer treatments. Patient reports having cough medicine at home. Monitor symptoms and return to ED if symptoms worsen. 07/01 18:45 Order name: Basic Metabolic Panel; Complete Time: 19:52 cp 07/01 21:30 Interpretation: Normal except: GLUC 119; BUN 5; GFR 84. cp 07/01 18:45 Order name: CBC with Diff; Complete Time: 19:52 cp 07/01 21:30 Interpretation: Normal except: MPV 7.1; KRISTA% 81.6; LYM% 14.9; MN% 2.9. cp 07/01 18:45 Order name: Magnesium; Complete Time: 19:52 cp 07/01 18:45 Order name: NT PRO-BNP; Complete Time: 19:52 cp 07/01 21:31 Interpretation: Abnormal: NT PRO-BNP 294. cp 07/01 18:45 Order name: PT-INR; Complete Time: 21:29 cp 07/01 21:29 Interpretation: Reviewed. cp 07/01 18:45 Order name: Troponin HS; Complete Time: 19:52 cp 07/01 21:31 Interpretation: Troponin HS 6.6; Reviewed. cp 07/01 18:45 Order name: XRAY Chest (1 view); Complete Time: 21:29 cp 07/01 21:30 Interpretation: Report review. cp 07/01 20:03 Order name: COVID-19/FLU A+B/RSV; Complete Time: 21:29 cp 07/01 21:30 Interpretation: Reviewed. 07/01 20:03 Order name: LAB Add On cp 07/01 20:03 Order name: Strep; Complete Time: 21:29 cp 07/01 20:34 Order name: D-Dimer; Complete Time: 21:29 EDUT 07/01 21:30 Interpretation: Reviewed. 07/01 20:56 Order name: Throat Culture EDUT 07/01 18:45 Order name: EKG; Complete Time: 18:46 cp 07/01 18:45 Order name: Cardiac monitoring; Complete Time: 19:51 cp 07/01 18:45 Order name: EKG - Nurse/Tech; Complete Time: 19:51 cp 07/01 18:45 Order name: IV Saline Lock; Complete Time: 19:28 cp 07/01 18:45 Order name: Labs collected and sent; Complete Time: 19:27 cp 07/01 18:45 Order name: O2 Per Protocol; Complete Time: 19:28 cp 07/01 18:45 Order name: O2 Sat Monitoring; Complete Time: 19:28 cp EC:37 Rate is 91 beats/min. Rhythm is regular. MS interval is normal. QRS interval is normal. cp QT interval is normal. T waves are Inverted in lead aVR. Interpreted by me. Reviewed by me. Administered Medications: 20:35 Drug: SOLU-Medrol (methylPrednisoLONE) 125 mg Route: IVP; Site: left antecubital; ke1 21:33 Follow up: Response: No adverse reaction ke1 20:36 Not Given (Patient Refused): Tylenol 1000 mg PO once ke1 20:56 Drug: Reglan (metoCLOPramide) 10 mg Route: IVP; Site: left antecubital; ke1 21:33 Follow up: Response: No adverse reaction ke1 20:56 Drug: morphine 4 mg Route: IVP; Infused Over: 4 mins; Site: left antecubital; ke1 21:33 Follow up: Pain 2/10 Adult; Response: Pain is decreased ke1 Disposition: 07/02 14:35 Co-signature as Attending Physician, Real Shah MD I reviewed the patient's care rt provided by the Advanced Practice Provider and agree with the diagnosis and treatment plan. Disposition Summary: 07/01/22 21:58 Discharge Ordered Location: Home cp Problem: new cp Symptoms: have improved cp Condition: Stable cp Diagnosis - Unspecified asthma with (acute) exacerbation cp - Acute bronchitis, unspecified cp - Nausea with vomiting, unspecified cp Followup: cp - With: Private Physician - When: 2 - 3 days - Reason: Recheck today's complaints Discharge Instructions: - Discharge Summary Sheet cp - Acute Bronchitis, Adult cp - Asthma, Adult cp - Nausea and Vomiting, Adult cp Forms: - Medication Reconciliation Form cp - Thank You Letter cp - Antibiotic Education cp - Prescription Opioid Use cp Prescriptions: - Prednisone 20 mg Oral Tablet - take 2 tablets by ORAL route once daily for 5 days; 10 tablet; Refills: 0, cp Product Selection Permitted Signatures: Dispatcher [employer] La Zhang RN RN ph Remigio Fowler PA PA cp Yudelka Mcmahon RN RN ke1 Real Shah MD MD rt Corrections: (The following items were deleted from the chart) 20:05 20:02 This 42 yrs old Female presents to ER via EMS with complaints of Shortness of cp Breath, Cough. cp 20:15 20:11 Antibiotic administration: Not indicated, the patient does not have an cp appreciated infiltrate, cp
--- NOTE | 2022-07-01 21:59 | ER ---
Nurse's Notes [facility] Name: Eve Bernal Age: 42 yrs Sex: Female : 1980 Arrival Date: 07/01/2022 Time: 18:40 Bed 14 Private MD: Diagnosis: Unspecified asthma with (acute) exacerbation;Acute bronchitis, unspecified;Nausea with vomiting, unspecified Presentation: 07/01 18:45 Chief complaint: EMS states: Pt recently dx w/ bronchitis and sinus infection, ph prescribed clindamycin and prednisone, has not been able to tolerate medications d/t N/V, pt reports SOB, chest tightness, sore throat, headache, and diarrhea, room air Spo2 98-100%, neb tx given by EMS, 18 G IV to LAC. Coronavirus screen: Vaccine status: Patient reports being unvaccinated. Ebola Screen: No symptoms or risks identified at this time. Initial Sepsis Screen: Does the patient meet any 2 criteria? No. Patient's initial sepsis screen is negative. Does the patient have a suspected source of infection? No. Patient's initial sepsis screen is negative. Risk Assessment: Do you want to hurt yourself or someone else? Patient reports no desire to harm self or others. Onset of symptoms was July 01, 2022. 18:45 Method Of Arrival: EMS: [facility] ph 18:45 Acuity: [facility] 3 ph Triage Assessment: 19:47 General: Appears in no apparent distress. Behavior is calm, cooperative, appropriate ph for age, Reports chills for. Pain: Complains of pain in chest and head. Respiratory: Reports shortness of breath cough that is Airway is patent Respiratory effort is even, unlabored. GI: Reports diarrhea, nausea, vomiting. Derm: Skin is pink, warm \T\ dry. 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 - Social history:: Smoking status: Patient reports the use of cigarette tobacco products, smokes one pack cigarettes per day. Screenin:48 [facility] ED Fall Risk Assessment (Adult) History of falling in the last 3 months, ph including since admission No falls in past 3 months (0 pts) Confusion or Disorientation No (0 pts) Intoxicated or Sedated No (0 pts) Impaired Gait Yes (1 pt) Mobility Assist Device Used Yes (1 pt) Altered Elimination No (0 pt) Score/Fall Risk Level 0 - 2 = Low Risk Oriented to surroundings, Maintained a safe environment, Hourly rounding (assess needs \T\ fall precautionary measures) done. Abuse screen: Denies threats or abuse. Denies injuries from another. Nutritional screening: No deficits noted. Tuberculosis screening: No symptoms or risk factors identified. Assessment: 19:52 Reassessment: see triage. ke1 21:32 Pain: Complains of pain in general body ache Pain currently is 6 out of 10 on a pain ke1 scale. 22:06 Reassessment: Patient denies pain at this time. Patient states feeling better. Patient ke1 states symptoms have improved. Vital Signs: 18:45 BP 183 / 87; Pulse 94; Resp 18; Temp 98.1(O); Pulse Ox 100% on R/A; Weight 108.86 kg; ph Height 5 ft. 2 in. (157.48 cm); 19:52 BP 145 / 76; Pulse 108; Resp 19; Temp 98.0; Pulse Ox 97% on R/A; Pain 0/10; ke1 21:33 Pain 2/10; ke1 21:33 BP 151 / 71; Pulse 96; Resp 17; Pulse Ox 95% on R/A; ke1 18:45 Body Mass Index 43.90 (108.86 kg, 157.48 cm) ph ED Course: 18:40 Patient arrived in ED. mm9 18:44 Remigio Fowler PA is PHCP. cp 18:44 Real Shah MD is Attending Physician. cp 19:08 Yudelka Mcmahon RN is Primary Nurse. ke1 19:27 Maintain EMS IV. Site clean \T\ dry. 18 g LAC. ke1 19:28 Basic Metabolic Panel Sent. ke1 19:28 CBC with Diff Sent. ke1 19:28 Magnesium Sent. ke1 19:28 NT PRO-BNP Sent. ke1 19:28 Troponin HS Sent. ke1 19:35 XRAY Chest (1 view) In Process Unspecified. EDMS 19:47 Triage completed. ph 19:48 Arm band placed on Patient placed in an exam room, on a stretcher, on ip counsel, ph on pulse oximetry. 19:49 Patient has correct armband on for positive identification. Bed in low position. Call ph light in reach. Side rails up X 1. Client placed on continuous cardiac and pulse oximetry monitoring. NIBP monitoring applied. 22:06 No provider procedures requiring assistance completed. IV discontinued. ke1 Administered Medications: 20:35 Drug: SOLU-Medrol (methylPrednisoLONE) 125 mg Route: IVP; Site: left antecubital; ke1 21:33 Follow up: Response: No adverse reaction ke1 20:36 Not Given (Patient Refused): Tylenol 1000 mg PO once ke1 20:56 Drug: Reglan (metoCLOPramide) 10 mg Route: IVP; Site: left antecubital; ke1 21:33 Follow up: Response: No adverse reaction ke1 20:56 Drug: morphine 4 mg Route: IVP; Infused Over: 4 mins; Site: left antecubital; ke1 21:33 Follow up: Pain 2/10 Adult; Response: Pain is decreased ke1 Medication: 19:49 VIS not applicable for this client. ph Outcome: 21:58 Discharge ordered by . papito 22:06 Discharged to home ambulatory. ke1 22:06 Condition: good 22:06 Discharge instructions given to patient. 22:06 Patient left the ED. ke1 Signatures: Dispatcher [employer] EDLa Weathers RN RN ph Remigio Fowler PA PA cp Ebrottie, Kouassi, RN RN ke1 Luana Garcia mm9 Corrections: (The following items were deleted from the chart) 19:30 19:27 Maintain EMS IV. Site clean \T\ dry. 20 g LAC. ke1 ke1
[2022-07-01 22:33] VITALS: TEMP 98.1
[2022-07-01 22:44] VITALS: BP 151/71; O2SAT 95
--- NOTE | 2022-07-04 12:44 | EKG ---
Test Date: 2022-07-01 Test Time: 19:33:55 Second Baker: CATHIE MEASUREMENT RESULTS: Intervals: Rate: 91 NE: 168 QRSD: 82 QT: 376 QTc: 462 [place]: P: 47 NE: 168 QRS: 74 T: 47 INTERPRETIVE STATEMENTS: Normal sinus rhythm Possible Left atrial enlargement Borderline ECG No previous ECG available for comparison Electronically Signed On 07-04-22 12:38:06 SALES TEAM MANAGER by Jan Landon
== END 2022-07-01 22:06 | disposition home or self-care (01) ==
LOC: ER 18:36
DX: J20.9 Acute bronchitis, unspecified (principal); J45.901 Unspecified asthma with (acute) exacerbation; R11.2 Nausea with vomiting, unspecified; F17.210 Nicotine dependence, cigarettes, uncomplicated; Z20.822 Contact with and (suspected) exposure to COVID-19; Z88.0 Allergy status to penicillin; Z88.2 Allergy status to sulfonamides; Z88.5 Allergy status to narcotic agent; Z88.6 Allergy status to analgesic agent
CPT/HCPCS: 87070; 85025; 80048; 36415; 83735; 85610; 85379; 87081; 84484; 83880; 0241U; 71045; 96375; 96374; 99284; J2765; J2930; 93005